=== PATIENT | male | born 1945 | race Caucasian/White ===

== ENCOUNTER 2016-10-05 16:48 | Emergency (ER) | payer BC ==
[~2016-10-05] VITALS: Ht 188 cm; Wt 90.0 kg
[~2016-10-05 16:48] MED LIST: ALCL0.057 EXT; ASCO10003 PO; ASPI81TA28 PO; CALC-354; MULT-884 PO; OMEG10007 PO; SIMV80TA2 PO
[2016-10-05 16:56] VITALS: TEMP 36.9; Ht 188 cm; Wt 90.0 kg
[2016-10-05] MEDS ORDERED: SODIUM CHLORIDE 0.9% 500ML 500 ML IV STA (18:02)
[2016-10-05] MEDS ORDERED: SODIUM CHLORIDE 0.9% 1000ML 1,000 ML IV STA (18:16)
[2016-10-05] MEDS ORDERED: TRMCR130WC TOP (18:21)
[2016-10-05] MEDS ORDERED: KPH PO (18:21)
[2016-10-05] MEDS ORDERED: [UNRECOGNIZED DRUG - REMARK] PO (18:25)
--- NOTE | 2016-10-05 18:52 | DIAGNOSTIC IMAGING REPORT ---
CHEST ONE VIEW PORTABLE HISTORY: weakness, hypotension COMPARISON: Chest 07/01 at 16. FINDINGS: The heart is mildly enlarged. Small bilateral pleural effusions. Right greater than left perihilar interstitial and vascular thickening. This favors mild pulmonary edema. There are also patchy densities at the lung bases. No pneumothorax. IMPRESSION: 1. Suspect mild asymmetric pulmonary edema. 2. Mild cardiomegaly and small bilateral pleural effusions. 3. Patchy bibasilar densities may be due to the pulmonary edema, atelectasis, or a pneumonia. Electronically signed by: Dwight Padilla M.D. 10/05/2016 6:50 PM Dictated Date/Time: 10/05/2016 6:48 PM
[2016-10-05 19:00] LABS: ANISOCYTOSIS PRESENT; BASO % 0.1 %; BASO ABS # 0.01 K/uL (0-0.2); COMPLETE YES; EOS % 3.9 %; HEMATOCRIT 20.5 % (42-52); IG% 0.3 %; LYMPH % 11.1 %; LYMPH ABS # 1.14 K/uL (1.2-3.4); MEAN CELL VOLUME 101.5 fL (80-100); MEAN CORPUSCULAR HEMOGLOBIN 34.2 pg (25-34); MEAN CORPUSCULAR HGB CONC 33.7 g/dl (32-36); MEAN PLATELET VOLUME 10.1 fL (7.4-10.4); MICROCYTOSIS PRESENT; MONO % 8.6 %; PLATELET COUNT 73 K/uL (130-400); PLT ESTIMATE DECREASED; POLYCHROMASIA 2+; RED BLOOD COUNT 2.02 M/uL (4.7-6.1); WHITE BLOOD COUNT 10.28 K/uL (4.8-10.8)
[2016-10-05 19:02] LABS: BUN/CREATININE RATIO 21.8 (10-20); CREATININE 2.1 mg/dl (0.60-1.40); MAGNESIUM 2.4 mg/dl (1.8-2.4); POTASSIUM 4.6 mmol/L (3.5-5.1)
[2016-10-05 19:13] LABS: CKMB/CK RATIO 5.4 (0-3.0); THYROID STIMULATING HORMONE 0.789 uIu/ml (0.300-4.500)
--- NOTE | 2016-10-05 19:30 | EMERGENCY ROOM VISIT NOTE ---
History Report prepared by Alpesh: Padilla De Under the Supervision of: Dr. Sangeetha Soto M.D. First contact with patient: 18:00 Chief Complaint: WEAKNESS Stated Complaint: WEAK,NO APPETITE,BREATHING TROUBLE Nursing Triage Summary: General weakness since last Saturday. History of Present Illness The patient is a 70 year old male who presents to the Emergency Room with complaints of constant weakness beginning 6 days ago. The patient states that he was out to eat with his and he was not able to eat much. He notes that later that evening, he vomited; he has not vomited since. The patient reports that for the last week he has lost his appetite, started having breathing difficulties, and he has felt weak. He states that when he gets up to go to the restroom at night, he becomes short of breath on his walk back. The patient reports that he has had a large amount of fluids today because he was difficult to eat, but he did have a very light breakfast. 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 He states that he quit smoking 27 years ago and has no history of diabetes mellitus or heart disease. The patient denies any pain, irregular bowel movement, diarrhea, and passing blood. Source of History: patient Onset: 6 days ago Position: other (global) Quality: other (weakness) Timing: constant Associated Symptoms: + SOB, No diarrhea Note: Associated symptoms: loss of appetite. The patient denies any pain, irregular bowel movements, and passing blood. Review of Systems See HPI for pertinent positives & negatives. A total of 10 systems reviewed and were otherwise negative. Past Medical & Surgical Medical Problems: (1) CAD (coronary artery disease) (2) Head and neck cancer (3) History of DVT (deep vein thrombosis) (4) History of subdural hemorrhage (5) Hyperlipidemia (6) Impotence of organic origin (7) Malignant neoplasm (8) Maxillary sinus cancer Surgical Problems: (1) History of inguinal hernia repair (2) History of sinus surgery Family History FH: heart disease FHx: cancer Hypertension Social History Smoking Status: Former Smoker Alcohol Use: none Drug Use: none Marital Status: Housing Status: lives with family Occupation Status: retired Current/Historical Medications Scheduled Ascorbic Acid (Vitamin C), 1,000 MG PO DAILY Aspirin (Aspirin Ec), 81 MG PO DAILY Calcium Carbonate-Cholecalcife (Caltrate 600+D), BID Fish Oil (Dowell-3), 1 CAP PO DAILY Multiple Vitamin (Multi Vitamin Daily), 1 TAB PO DAILY Potassium Phosphate Monobasic (K-Phos), 2 TAB PO QAM Simvastatin (Zocor), 80 MG PO QPM Triamcinolone Acet (Aristocort 0.1%), 1 APPL TOP BID [chemo med for bones], 1 TAB PO BID Allergies Coded Allergies: Sulfamethoxazole w/Trimethoprim (Verified Allergy, Unknown, Hives, 10/05/16 ) Physical Exam Vital Signs Date Time Temp Pulse Resp B/P Pulse Ox O2 Delivery O2 Flow Rate FiO2 10/06/16 00:01 82 18 98 10/05/16 23:20 93 14 106/70 97 Room Air 10/05/16 21:20 88 22 112/78 98 Room Air 10/05/16 19:31 93 22 111/74 95 Room Air 10/05/16 19:10 85 10/05/16 18:39 94/56 113/68 120/71 10/05/16 18:39 81 96 Room Air 10/05/16 16:56 36.9 81 20 98/64 93 Room Air Physical Exam Vital signs reviewed. General: Chronically ill-appearing, elderly, in no significant distress, patch over right eye HEENT: No scleral icterus, PERRLA, neck supple. Atraumatic. Edentulous. Dry mucous membranes. Cardiovascular: Regular rate and rhythm, no extra sounds. Pulmonary: Clear to auscultation bilaterally, normal work of breathing. Abdomen: Soft, nontender, nondistended, positive bowel sounds. Musculoskeletal: Atraumatic, no peripheral edema. Neurologic: Patient awake alert and oriented x 3, full strength in all 4 extremities. Cranial nerves 2 through 12 grossly intact. Skin: Warm, dry, no rash Medical Decision & Procedures ER Provider Diagnostic Interpretation: X-ray results as stated below per interpretation by me and the radiologist: CHEST ONE VIEW PORTABLE HISTORY: weakness, hypotension COMPARISON: Chest 07/01 at 16. FINDINGS: The heart is mildly enlarged. Small bilateral pleural effusions. Right greater than left perihilar interstitial and vascular thickening. This favors mild pulmonary edema. There are also patchy densities at the lung bases. No pneumothorax. IMPRESSION: 1. Suspect mild asymmetric pulmonary edema. 2. Mild cardiomegaly and small bilateral pleural effusions. 3. Patchy bibasilar densities may be due to the pulmonary edema, atelectasis, or a pneumonia. Electronically signed by: Dwight Padilla M.D. 10/05/2016 6:50 PM Dictated Date/Time: 10/05/2016 6:48 PM ABDOMEN AND PELVIS CT WITH ORAL CONTRAST CT DOSE: 580.07 mGy.cm HISTORY: poor appetite, vomiting, h/o renal CC TECHNIQUE: Multiaxial CT images of the abdomen and pelvis were performed following the use of oral contrast. COMPARISON STUDY: Outside hospital PET/CT 02/08/2016. FINDINGS: There is small to moderate bilateral pleural effusions. Right greater the left interlobular septal thickening. This is consistent with pulmonary edema. Patchy densities at the base of the bilateral lower lobes favor atelectasis. Slight increase in size in the 2.6 cm lytic lesion within the left acetabulum and the 2 cm lesion within the right L4 vertebral body consistent with metastases. Stable cyst within the left hepatic lobe. The spleen and pancreas are unremarkable. No change in the 4.5 x 3.7 cm infrarenal abdominal aortic aneurysm. IVC filter is noted. Prior left nephrectomy. No soft tissue masses within the nephrectomy bed. Mild thickening of the left adrenal gland, unchanged. Stable hypodense lesion within the right kidney which favors a cyst. No significant retroperitoneal lymphadenopathy. Cholelithiasis. No gallbladder wall thickening. Small hiatus hernia. Normal bladder. Colonic diverticulosis. No bowel wall thickening or obstruction. Normal appendix. IMPRESSION: 1. No bowel wall thickening or obstruction. 2. Pulmonary edema with [id number] bilateral pleural effusions. 3. Prior left nephrectomy. 4. Slight increase in size within the L4 vertebral body and left acetabulum metastatic lesions. 5. A 4.5 x 3.7 cm infrarenal abdominal aortic aneurysm. 6. Cholelithiasis. Electronically signed by: Dwight Padilla M.D. 10/05/2016 9:29 PM Dictated Date/Time: 10/05/2016 9:12 PM Laboratory Results 10/05/16 18:25 Red Blood Count 2.02, Mean Corpuscular Volume 101.5, Mean Corpuscular Hemoglobin 34.2, Mean Corpuscular Hemoglobin Concent 33.7, Mean Platelet Volume 10.1, Neutrophils (%) (Auto) 76.0, Lymphocytes (%) (Auto) 11.1, Monocytes (%) ( Auto) 8.6, Eosinophils (%) (Auto) 3.9, Basophils (%) (Auto) 0.1, Neutrophils # ( Auto) 7.82, Lymphocytes # (Auto) 1.14, Monocytes # (Auto) 0.88, Eosinophils # ( Auto) 0.40, Basophils # (Auto) 0.01 10/05/16 18:25 Test 10/05/16 18:25 10/05/16 18:31 10/05/16 18:33 10/05/16 22:00 White Blood Count 10.28 K/uL (4.8-10.8) Red Blood Count 2.02 M/uL (4.7-6.1) Hemoglobin 6.9 g/dL (14.0-18.0) Hematocrit 20.5 % (42-52) Mean Corpuscular Volume 101.5 fL (80-100) Mean Corpuscular Hemoglobin 34.2 pg (25-34) Mean Corpuscular Hemoglobin Concent 33.7 g/dl (32-36) Platelet Count 73 K/uL (130-400) Mean Platelet Volume 10.1 fL (7.4-10.4) Neutrophils (%) (Auto) 76.0 % Lymphocytes (%) (Auto) 11.1 % Monocytes (%) (Auto) 8.6 % Eosinophils (%) (Auto) 3.9 % Basophils (%) (Auto) 0.1 % Neutrophils # (Auto) 7.82 K/uL (1.4-6.5) Lymphocytes # (Auto) 1.14 K/uL (1.2-3.4) Monocytes # (Auto) 0.88 K/uL (0.11-0.59) Eosinophils # (Auto) 0.40 K/uL (0-0.5) Basophils # (Auto) 0.01 K/uL (0-0.2) RDW Standard Deviation 77.3 fL (36.4-46.3) RDW Coefficient of Variation 22.5 % (11.5-14.5) Immature Granulocyte % (Auto) 0.3 % Immature Granulocyte # (Auto) 0.03 K/uL (0.00-0.02) Platelet Estimate DECREASED Polychromasia 2+ Anisocytosis PRESENT Microcytosis PRESENT Macrocytosis PRESENT Prothrombin Time 12.0 SECONDS (9.0-12.0) Prothromb Time International Ratio 1.1 (0.9-1.1) Activated Partial Thromboplast Time 29.2 SECONDS (21.0-31.0) Partial Thromboplastin Ratio 1.1 Anion Gap 10.0 mmol/L (3-11) Est Creatinine Clear Calc Drug Dose 37.5 ml/min Estimated GFR () 35.6 Estimated GFR (Non- 30.7 BUN/Creatinine Ratio 21.8 (10-20) Calcium Level 8.0 mg/dl (8.5-10.1) Magnesium Level 2.4 mg/dl (1.8-2.4) Total Bilirubin 2.0 mg/dl (0.2-1) Direct Bilirubin 0.5 mg/dl (0-0.2) Aspartate Amino Transf (AST/SGOT) 37 U/L (15-37) Alanine Aminotransferase (ALT/SGPT) 25 U/L (12-78) Alkaline Phosphatase 49 U/L (45-117) Total Creatine Kinase 173 U/L (39-308) Creatine Kinase MB 9.4 ng/ml (0.5-3.6) Creatine Kinase MB Ratio 5.4 (0-3.0) Total Protein 6.3 gm/dl (6.4-8.2) Albumin 3.4 gm/dl (3.4-5.0) Thyroid Stimulating Hormone (TSH) 0.789 uIu/ml (0.300-4.500) Bedside Lactic Acid Venous 0.82 mmol/L (0.90-1.70) Bedside Troponin I 5.400 ng/ml (0-0.045) Urine Color DK YELLOW Urine Appearance CLEAR (CLEAR) Urine pH 5.0 (4.5-7.5) Urine Specific [place] 1.025 (1.000-1.030) Urine Protein TRACE (NEG) Urine Glucose (UA) NEG (NEG) Urine Ketones TRACE (NEG) Urine Occult Blood NEG (NEG) Urine Nitrite NEG (NEG) Urine Bilirubin NEG (NEG) Urine Urobilinogen NEG (NEG) Urine Leukocyte Esterase NEG (NEG) Urine WBC (Auto) 1-5 /hpf (0-5) Urine RBC (Auto) 0-4 /hpf (0-4) Urine Hyaline Casts (Auto) 1-5 /lpf (0-5) Urine Epithelial Cells (Auto) 5-10 /lpf (0-5) Urine Bacteria (Auto) NEG (NEG) Laboratory results per my review. Medications Administered Medications (Trade) Dose Ordered Sig/Kathy Route Start Time Stop Time Status Last Admin Dose Admin Sodium Chloride 500 ml @ 999 mls/hr Q31M STAT IV 10/05/16 18:02 10/05/16 21:31 DC 10/05/16 18:02 999 MLS/HR Sodium Chloride (Nss 1000ml) 1,000 ml @ 150 mls/hr Q6H40M STAT IV 10/05/16 18:16 10/05/16 21:31 DC 10/05/16 18:43 150 MLS/HR Procedure 1924: I performed a rectal exam. The rectal exam is negative, normal rectal mucosus, no significant stool obtained, guaiac negative. ECG Indication: weakness Rate (beats per minute): 85 Rhythm: normal sinus Findings: T-wave inversion (Inferior), other (Repolarization abnormality in the lateral leads) Comparison ECG Date: 06/2015 Change: T-wave inversions in the inferior and lateral leads are new. ED Course 1801: Ordered Sodium Chloride 500 ml @ 999 mls/hr IV 1814: Past medical records reviewed. The patient was evaluated in room B03A. A complete history and physical examination was performed. 1815: Ordered Sodium Chloride 1000 ml @ 150 mls/hr IV 1924: I reevaluated the patient and discussed the exam findings. I performed a rectal exam. I asked the patient for his consent for a blood transfusion. He confirmed consent for a blood transfusion. His rectal exam is negative, normal rectal mucosus, no significant stool obtain, guaiac negative. 2003: I reevaluated the patient and he is resting comfortably. I discussed laboratory and radiographic results with the patient. He verbalized agreement of the treatment plan. I spoke with Dr. Tran of the [facility]. 2213: I discussed the patient's case with Dr Garza, [facility]. The patient will be evaluated for further management and care. Medical Decision Differential diagnosis: Etiologies such as metabolic, infection, hypo/hyperglycemia, electrolyte abnormalities, cardiac sources, intracerebral event, toxicologic, neurologic, as well as others were entertained. This patient was evaluated and appeared to be in no significant distress. He does appear to be chronically ill. The patient has a patch to the right side of his face which he has worn for years. He is dry be appropriate, but is able to answer questions appropriately. He states the he has had no pain. He has felt very weak and sometimes short of breath. IV access was obtained and laboratory work was drawn. The patient was hydrated with normal saline solution. Patient's laboratory work reveals an elevated troponin at 5.4, elevated creatinine at 2.1. Patient's EKG reveals new T-wave inversions in the inferior and lateral leads. Patient is found be markedly anemic. Rectal exam is guaiac negative. Patient was ordered for 2 units of PRBCs. Blood bank has notified us that the patient has a significant number antibodies and will be difficult to crossmatch. Patient was discussed with the hospitalist service, Dr. Olvera. He feels the patient would best be served transferred to [facility] where they will not be a blood supply issue. The patient was made aware of the plan. Consents were signed the patient was discussed with Dr. rogers of the hospitalist service at [facility]. He has been accepted for transfer. He will be transported by [facility] ground. Consults Time Called: 2002 Consulting Physician: Dr. Tran [facility] Returned Call: [address] Tran of the [facility] and informed him of the patients case. Additional Consults: Time Called: [id number] Consulted Physician: Dr. Garza [facility] Returned Call: [id number] Additional Comments: I discussed the patient's case with Dr [facility]. The patient will be evaluated for further management and care. Impression Primary Impression: Acute on chronic renal failure Additional Impressions: Elevated troponin Anemia Cardiac ischemia Critical Care I have personally spent greater than 60 minutes of critical care time in the direct management of this patient. This includes bedside care, interpretation of diagnostic studies, and testing, discussion with consultants, patient, and family members, and other required patient management activities. This 60 minutes is in excess of all separately billable procedures. Scribe Attestation The scribe's documentation has been prepared under my direction and personally reviewed by me in its entirety. I confirm that the note above accurately reflects all work, treatment, procedures, and medical decision making performed by me. Departure Information Dispostion Being Evaluated By Hospitalist Referrals Pradeep Mayer M.D. (PCP) Patient Instructions My [facility] Problem Qualifiers
[2016-10-05 20:46] LABS: INR 1.1 (0.9-1.1); PARTIAL THROMBOPLASTIN RATIO 1.1
--- NOTE | 2016-10-05 21:30 | DIAGNOSTIC IMAGING REPORT ---
ABDOMEN AND PELVIS CT WITH ORAL CONTRAST CT DOSE: 580.07 mGy.cm HISTORY: poor appetite, vomiting, h/o renal CC TECHNIQUE: Multiaxial CT images of the abdomen and pelvis were performed following the use of oral contrast. COMPARISON STUDY: Outside hospital PET/CT 02/08/2016. FINDINGS: There is small to moderate bilateral pleural effusions. Right greater the left interlobular septal thickening. This is consistent with pulmonary edema. Patchy densities at the base of the bilateral lower lobes favor atelectasis. Slight increase in size in the 2.6 cm lytic lesion within the left acetabulum and the 2 cm lesion within the right L4 vertebral body consistent with metastases. Stable cyst within the left hepatic lobe. The spleen and pancreas are unremarkable. No change in the 4.5 x 3.7 cm infrarenal abdominal aortic aneurysm. IVC filter is noted. Prior left nephrectomy. No soft tissue masses within the nephrectomy bed. Mild thickening of the left adrenal gland, unchanged. Stable hypodense lesion within the right kidney which favors a cyst. No significant retroperitoneal lymphadenopathy. Cholelithiasis. No gallbladder wall thickening. Small hiatus hernia. Normal bladder. Colonic diverticulosis. No bowel wall thickening or obstruction. Normal appendix. IMPRESSION: 1. No bowel wall thickening or obstruction. 2. Pulmonary edema with [id number] bilateral pleural effusions. 3. Prior left nephrectomy. 4. Slight increase in size within the L4 vertebral body and left acetabulum metastatic lesions. 5. A 4.5 x 3.7 cm infrarenal abdominal aortic aneurysm. 6. Cholelithiasis. Electronically signed by: Dwight Padilla M.D. 10/05/2016 9:29 PM Dictated Date/Time: 10/05/2016 9:12 PM
[2016-10-05 22:44] LABS: MANUAL MICROSCOPIC REQUIRED? NO; REVIEW REQ? NO; URINE APPEARANCE CLEAR (CLEAR); URINE BILIRUBIN NEG (NEG); URINE COLOR DK YELLOW; URINE NITRITE NEG (NEG); URINE SPECIFIC GRAVITY 1.025 (1.000-1.030); UROBILINOGEN NEG (NEG); ZZUR CULT IF INDIC CLEAN CATCH NO
[2016-10-05 23:20] VITALS: BP 106/70
[2016-10-06 00:01] VITALS: PULSE 82; O2SAT 98
[2016-10-08 07:39] LABS: SPHEROCYTE 3+
[2016-10-16] MEDS ORDERED: ATOR-24 PO ×2 (11:50→16:40)
[2016-10-20] MEDS ORDERED: ULT50X PO (19:40)
[2016-10-20] MEDS ORDERED: LPT20 PO (19:40)
[2016-10-20] MEDS ORDERED: LVQ250 PO (19:40)
[2016-10-20] MEDS ORDERED: TPRSR25 PO (19:40)
== END 2016-10-06 | disposition short-term general hospital (02) ==
LOC: C.EDB 16:49
DX: N17.9 Acute kidney failure, unspecified (principal); N18.9 Chronic kidney disease, unspecified; R79.89 Other specified abnormal findings of blood chemistry; D64.9 Anemia, unspecified; I25.9 Chronic ischemic heart disease, unspecified; E78.5 Hyperlipidemia, unspecified; I25.10 Atherosclerotic heart disease of native coronary artery without angina pectoris; Z86.718 Personal history of other venous thrombosis and embolism; Z86.73 Personal history of transient ischemic attack (TIA), and cerebral infarction without residual deficits; Z98.890 Other specified postprocedural states; Z87.891 Personal history of nicotine dependence; Z79.82 Long term (current) use of aspirin; Z79.899 Other long term (current) drug therapy; Z88.2 Allergy status to sulfonamides; Z82.49 Family history of ischemic heart disease and other diseases of the circulatory system; Z80.9 Family history of malignant neoplasm, unspecified

== ENCOUNTER 2016-10-16 10:43 | Inpatient (IN) | payer BC, OTHER ==
[~2016-10-16] VITALS: Ht 188 cm; Wt 78.0 kg
[~2016-10-16 10:43] MED LIST changes: -ALCL0.057 EXT; +KPH PO; +TRMCR130WC TOP; +[UNRECOGNIZED DRUG - REMARK] PO
[2016-10-16] MEDS ORDERED: FOLI1TAB7 PO (11:50)
[2016-10-16] MEDS ORDERED: FRS/40 PO (11:50)
[2016-10-16] MEDS ORDERED: OMEG5CAP PO (11:50)
[2016-10-16] MEDS ORDERED: ALCL0.05 TOP (11:50)
[2016-10-16] MEDS ORDERED: XGVI INJ (11:50)
[2016-10-16] MEDS ORDERED: ATOR-24 PO ×2 (11:50→16:40)
[2016-10-16] MEDS ORDERED: CHOL1000 PO (11:50)
[2016-10-16] MEDS ORDERED: CYAN10005 PO (11:50)
[2016-10-16] MEDS ORDERED: NTRGSL/4 UT (11:50)
[2016-10-16] MEDS ORDERED: METO25TA3 PO (11:50)
[2016-10-16] MEDS ORDERED: PRLSR20 PO (11:50)
[2016-10-16] MEDS ORDERED: PRED20TA PO (11:52)
--- NOTE | 2016-10-16 12:33 | DIAGNOSTIC IMAGING REPORT ---
CHEST ONE VIEW PORTABLE CLINICAL HISTORY: Atypical chest pain COMPARISON STUDY: 10/05/2016 FINDINGS: The heart is mildly enlarged. There is no focal pulmonary consolidation. There has been interval resolution of the previously identified congestive failure. There are no pleural effusions.[ IMPRESSION: Mild cardiomegaly. No acute findings. Electronically signed by: Adam Hodges M.D. 10/16/2016 12:31 PM Dictated Date/Time: 10/16/2016 12:31 PM
--- NOTE | 2016-10-16 12:36 | DIAGNOSTIC IMAGING REPORT ---
RIGHT SHOULDER 3 VIEWS HISTORY: RIGHT SHOULDER PAIN Right COMPARISON: None. FINDINGS: There is no fracture or dislocation. The right clavicle is intact. There appears be a small focus of fluid along the superior aspect of the AC joint. This can be seen in the setting of a chronic full-thickness rotator cuff tear. Mild cartilage space narrowing within the glenohumeral joint. There is also mild joint space narrowing and small marginal osteophytes at the AC joint consistent with degenerative change. IMPRESSION: 1. No fracture or dislocation within the right shoulder. 2. There appears to be a small amount fluid along the superior aspect of the AC joint. This is typically seen in the setting of a chronic full-thickness rotator cuff tear. This can be confirmed with follow-up nonemergent MRI if clinically wanted. Electronically signed by: Dwight Padilla M.D. 10/16/2016 12:35 PM Dictated Date/Time: 10/16/2016 12:30 PM
--- NOTE | 2016-10-16 13:04 | DIAGNOSTIC IMAGING REPORT ---
RIGHT UPPER EXTREMITY VENOUS DOPPLER HISTORY: right upper arm pain, no trauma Right COMPARISON STUDY: None. FINDINGS: The right internal jugular vein is patent. There is normal flow within the right subclavian vein. There is normal flow and compressibility within the right axillary, radial, and ulnar veins. Thrombus identified within the right basilic vein at the antecubital fossa and extending into the mid forearm. There is also a partially thrombosed cephalic vein. IMPRESSION: 1. Deep vein thrombosis identified within the right basilic vein at the antecubital fossa and extending into the mid forearm. 2. There is also a partially thrombosed right cephalic vein. Electronically signed by: Dwight Padilla M.D. 10/16/2016 1:03 PM Dictated Date/Time: 10/16/2016 1:02 PM
[2016-10-16 13:09] LABS: BUN/CREATININE RATIO 34.6 (10-20); CREATININE 1.9 mg/dl (0.60-1.40); POTASSIUM 3.8 mmol/L (3.5-5.1)
[2016-10-16 13:33] LABS: ANISOCYTOSIS PRESENT; COMPLETE YES; EOS % 0.1 %; HEMATOCRIT 28.5 % (42-52); HYPERSEGMENTED POLYS 1+; IG% 0.6 %; LYMPH % 8.8 %; LYMPH ABS # 1.57 K/uL (1.2-3.4); MEAN CELL VOLUME 98.6 fL (80-100); MEAN CORPUSCULAR HEMOGLOBIN 34.6 pg (25-34); MEAN CORPUSCULAR HGB CONC 35.1 g/dl (32-36); MEAN PLATELET VOLUME 12.1 fL (7.4-10.4); MONO % 3.7 %; NEUT % 86.8 %; PLATELET COUNT 60 K/uL (130-400); PLT ESTIMATE DECREASED; RED BLOOD COUNT 2.89 M/uL (4.7-6.1); SPHEROCYTE OCCASIONAL; WHITE BLOOD COUNT 17.78 K/uL (4.8-10.8)
[2016-10-16 13:45] LABS: CALCIUM 6.8 mg/dl (8.5-10.1)
--- NOTE | 2016-10-16 16:02 | History and Physical ---
History & Physical Date & Time of Service: October 16, 2016 at 16:01 Chief Complaint: Pain In Right Shoulder Primary Care Physician: Pradeep Mayer M.D. History of Present Illness Source: patient this is a 70 yo Male with complicated past medical hx with recent NSTEMI required transfer from [facility] to [facility] on 10/05/16 [place] [facility] [place]15/16 pt developed acute cardiac decompensation , severe ischemic cardiomyopathy with systolic dysfunction EF 25 % medical management of NSTEMI ,as pt was found to too high risk for cardiac cath /cardiac intervention diagnosed to have autoimmune hemolytic anemia , 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 pts' other medical Dx includes 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 , CKD stage 3 , AAA pt presenting to [facility] with complain of pain and swelling of rt upper arm form rt shoulder to elbow area also sharp pain on rt shoulder , worse with movement denies of any recent fall or trauma no fever or chills no complain of chest pain /SOB /no orthopnea , no CHAUDHARY 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 Status: Resolved (9) Maxillary sinus cancer Status: Resolved Surgical Problems: (1) History of inguinal hernia repair Status: Resolved (2) History of sinus surgery Permanent Comment: removal of R eye as well as R ethmoid sinus Status: Resolved Family History FH: heart disease FHx: cancer Hypertension Social History Smoking Status: Never Smoker Drug Use: none Marital Status: Housing status: lives with family Occupational Status: retired Multi-Drug Resistant Organisms History of MDRO: No Allergies Coded Allergies: Sulfamethoxazole w/Trimethoprim (Verified Allergy, Unknown, Hives, 10/16/16 ) Home Medications Scheduled Alclometasone Dipropionate (Alclometasone Dipropionat), Unknown Dose TOP BID Ascorbic Acid (Vitamin C), 1,000 MG PO DAILY Aspirin (Aspirin Ec), 81 MG PO DAILY Atorvastatin (Lipitor), 40 MG PO DAILY Cholecalciferol (Vitamin D3), 1 TAB PO DAILY Cyanocobalamin (Vitamin B-12), 1,000 MCG PO DAILY Denosumab (Xgeva), 120 MCG INJ MONTHLY Fish Oil ([place]-3), 1 CAP PO DAILY Folic Acid (Folvite), 1 MG PO DAILY Furosemide (Lasix), 40 MG PO BID Metoprolol Succ (Toprol Xl) (Toprol-Xl), 75 MG PO DAILY Multiple Vitamin (Multi Vitamin Daily), 1 TAB PO DAILY Nitroglycerin (Nitrostat), 0.4 MG UT PRN [place]-3 Fatty Acids (Fish Oil 1200 mg), 1 CAP PO DAILY Omeprazole (Prilosec), 20 MG PO DAILY Potassium Phosphate Monobasic (K-Phos), 2 TAB PO QAM Prednisone (Prednisone), 80 MG PO DAILY Triamcinolone Acet (Aristocort 0.1%), 1 APPL TOP BID Review of Systems Constitutional: No chills, No fatigue, No fever, No problem reported, No sweats , No weakness, No weight loss Respiratory: No cough, No dyspnea at rest, No dyspnea on exertion, No hemoptysis, No problem reported, No shortness of breath, No sputum, No wheezing Cardiovascular: No PND, No chest pain, No claudication, No edema, No orthopnea , No palpitations, No problem reported Abdomen: No GI bleeding, No constipation, No diarrhea, No nausea, No pain, No problem reported, No vomiting Musculoskeletal: + problem reported (rt shoulder and rt upper arm pain .swelling ) Genitourinary - Male: No dysuria, No hematuria, No impotence, No lesions, No penile discharge, No problem reported, No urinary frequency, No urinary hesitancy, No urinary incontinence, No urinary retention, No urinary urgency Neurologic: No balance problems, No memory loss, No numbness/tingling, No paralysis, No problem reported, No vertigo, No weakness Physical Exam Vital Signs Date Time Temp Pulse Resp B/P Pulse Ox O2 Delivery O2 Flow Rate FiO2 10/16/16 15:37 74 18 107/68 100 Room Air 10/16/16 13:50 64 18 109/63 99 Room Air 10/16/16 13:43 68 10/16/16 12:37 87 18 105/63 99 Room Air 10/16/16 12:25 99 Room Air 10/16/16 11:01 71 10/16/16 10:58 99 Room Air 10/16/16 10:46 36.6 81 18 118/67 100 Room Air General Appearance: no apparent distress Eyes: + pertinent finding (has patch on rt eye s/p enucleation for sq cell ca ) Neck: thyroid normal Respiratory/Chest: chest non-tender, lungs clear, normal breath sounds, no respiratory distress, no accessory muscle use Abdomen/GI: non tender, soft Extremities/Musculoskelatal: + pertinent finding (bruise and swelling , positive tenderness on rt upper arm , tenderness on movement of rt shoulder ) Neurologic/Psych: alert, normal mood/affect, oriented x 3 Skin: normal color, warm/dry, no rash Lymphatic: no adenopathy Diagnostics Laboratory Results Results Past 24 Hours Test 10/16/16 11:20 Range/Units White Blood Count 17.78 4.8-10.8 K/uL Red Blood Count 2.89 4.7-6.1 M/uL Hemoglobin 10.0 14.0-18.0 g/dL Hematocrit 28.5 42-52 % Mean Corpuscular Volume 98.6 80-100 fL Mean Corpuscular Hemoglobin 34.6 25-34 pg Mean Corpuscular Hemoglobin Concent 35.1 32-36 g/dl Platelet Count 60 130-400 K/uL Mean Platelet Volume 12.1 7.4-10.4 fL Neutrophils (%) (Auto) 86.8 % Lymphocytes (%) (Auto) 8.8 % Monocytes (%) (Auto) 3.7 % Eosinophils (%) (Auto) 0.1 % Basophils (%) (Auto) 0.0 % Neutrophils # (Auto) 15.42 1.4-6.5 K/uL Lymphocytes # (Auto) 1.57 1.2-3.4 K/uL Monocytes # (Auto) 0.66 0.11-0.59 K/uL Eosinophils # (Auto) 0.02 0-0.5 K/uL Basophils # (Auto) 0.00 0-0.2 K/uL RDW Standard Deviation 80.1 36.4-46.3 fL RDW Coefficient of Variation 22.2 11.5-14.5 % Immature Granulocyte % (Auto) 0.6 % Immature Granulocyte # (Auto) 0.11 0.00-0.02 K/uL Hypersegmented Polys 1+ Platelet Estimate DECREASED Anisocytosis PRESENT Spherocytes OCCASIONAL Sodium Level 138 136-145 mmol/L Potassium Level 3.8 3.5-5.1 mmol/L Chloride Level 101 98-107 mmol/L Carbon Dioxide Level 26 21-32 mmol/L Anion Gap 11.0 3-11 mmol/L Blood Urea Nitrogen 66 7-18 mg/dl Creatinine 1.90 0.60-1.40 mg/dl Est Creatinine Clear Calc Drug Dose 41.4 ml/min Estimated GFR () 40.2 Estimated GFR (Non- 34.7 BUN/Creatinine Ratio 34.6 10-20 Random Glucose 97 70-99 mg/dl Calcium Level 6.8 8.5-10.1 mg/dl Total Bilirubin 3.0 0.2-1 mg/dl Direct Bilirubin 0.9 0-0.2 mg/dl Aspartate Amino Transf (AST/SGOT) 24 15-37 U/L Alanine Aminotransferase (ALT/SGPT) 29 12-78 U/L Alkaline Phosphatase 39 45-117 U/L Total Creatine Kinase 58 39-308 U/L Creatine Kinase MB 2.9 0.5-3.6 ng/ml Creatine Kinase MB Ratio 5.0 0-3.0 Troponin I 0.266 0-0.045 ng/ml Total Protein 6.2 6.4-8.2 gm/dl Albumin 3.3 3.4-5.0 gm/dl Lipase 495 73-393 U/L Diagnostic Radiology RIGHT UPPER EXTREMITY VENOUS DOPPLER HISTORY: right upper arm pain, no trauma Right COMPARISON STUDY: None. FINDINGS: The right internal jugular vein is patent. There is normal flow within the right subclavian vein. There is normal flow and compressibility within the right axillary, radial, and ulnar veins. Thrombus identified within the right basilic vein at the antecubital fossa and extending into the mid forearm. There is also a partially thrombosed cephalic vein. IMPRESSION: 1. Deep vein thrombosis identified within the right basilic vein at the antecubital fossa and extending into the mid forearm. 2. There is also a partially thrombosed right cephalic vein. RIGHT SHOULDER 3 VIEWS IMPRESSION: 1. No fracture or dislocation within the right shoulder. 2. There appears to be a small amount fluid along the superior aspect of the AC joint. This is typically seen in the setting of a chronic full-thickness rotator cuff tear. This can be confirmed with follow-up nonemergent MRI if clinically wanted. CHEST ONE VIEW PORTABLE CLINICAL HISTORY: Atypical chest pain COMPARISON STUDY: 10/05/2016 FINDINGS: The heart is mildly enlarged. There is no focal pulmonary consolidation. There has been interval resolution of the previously identified congestive failure. There are no pleural effusions.[ IMPRESSION: Mild cardiomegaly. No acute findings. Impression Assessment and Plan RIGHT SHOULDER PAIN : Possible due to chronic rotator cuff injury Xray as noted above ortho eval requested pain control PT/OT eval will defer to Ortho for MRI of shoulder RT UPPER EXT DVT USG of rt upper arm as above recent admission at [facility] had multiple lab draws and IV site can not start on anticoagulation due to thrombocytopenia , recent hx of anemia unable to transfuse at [facility] due to presence of multiple antibodies Heme onc consult requested pt is knows to Dr Carter RECENT PR recent NSTEMI on 10/05/16 required tx to [facility] recommended was treated with IV heparin for 48 hrs added Beta christina , aspirin ,atorvastatin high risk for anjana /post operative complication due to contrast exposure /ATN requiring dialysis /advance CAD may not be amenable to intervention EF post PR was found to be 25 % pt developed acute systolic CHF required aggressive diuresis pt will be continued with all his Cardiac meds Aspirin , Beta christina , statin ACEI/ARB contraindicated due to MIKE /pt developed high anion gap metabolic acidosis with ATN EKG shows stable T wave inversion troponin been trending down form prior labs monitor in Tele Cardiology eval requested ISCHEMIC CARDIOMYOPATHY /WITH SEVERE SYSTOLIC DYSFUNCTION : due to Above appears to be compensated cont Lasix 40 mg BID fluid restriction 2 L /day low salt diet 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 : Evaluated by Hematology in [facility] HIT antibody -PF4 was negative at [facility] Indirect Bili was elevated, HIGH LDH , low haptoglobin , Lucy test positive for IgG no schistocytes noted in peripheral smear s/p transfusion of total 3 units of PRBC was treated with IV steroids , later transitioned to Oral prednisone 80 mg daily ( 1mg/kg/daily ) may require weekly IB Rituxamab if refractory to high dose steroid treatment ( will need hepatitis panel checked prior to tx ) HB on discharge 9.2 /platelet 55 anticoagulation avoided cont Oral prednisone follow daily CBC Leukocytosis possible due to steroid induced heme onc consult requested 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 : s/p resection approx 26 yrs back including enucleation of rt eye s/p adjuvant radiation tx follow with Dr Figueroa ENT at [facility] as per recent follow up on 09/27 -no recurrence of disease METASTATIC RENAL CELL CA : s/p Left nephrectomy on August 2015 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 and 1 cm noted tumor extended to perinephric tissue negative margin , negative Lymphovascular invasion noted imaging study in 2015 showed metastatic disease involving left acetabulum and L4 vertebral body s/p palliative radiation tx completed on 04/2016 follows with Heme Onc Dr Tha Carter on Xgeva SQ 120 mg Q 4weeks PRIOR HX OF CVA in 1993 resulting left sided weakness ambulated with help of cane prior hx of fall PT/OT eval requested FULL CODE DVT PROPHYLAXIS ; Moderate to high risk anticoagulation not ordered for thrombocytopenia /anemia SCD and teds pt is encouraged to ambulate DISPOSITION : expected to be discharged home when medically stable [place] PT /OT eval requested Social service consulted for discharge planning medicine follow up with Dr Pradeep Mayer Level of Care Telemetry Resuscitation Status FULL NO CARDIOV/MECH CHYNA VTE Prophylaxis Given or contraindicated: Sanjuanita Stockings, SCD's Additional Copies To Tha Carter M.D. Rozick, Mark S., M.D.
[2016-10-16] MEDS ORDERED: ALUMINUM/MAGNESIUM/SIMETH (MAALOX MAX) 30 ML UDC PO PRN (16:15)
[2016-10-16] MEDS ORDERED: NITROGLYCERIN 0.4 MG SL PER TAB CHARGE UT PRN (16:15)
[2016-10-16] MEDS ORDERED: POLYETHYLENE (MIRALAX) 17 GM PACK PO PRN (16:15)
[2016-10-16] MEDS ORDERED: ONDANSETRON INJ 2 MG/ML 2 ML VIAL IV PRN (16:15)
[2016-10-16] MEDS ORDERED: MAGNESIUM HYDROXIDE SUSP 30 ML UDC PO PRN (16:15)
[2016-10-16] MEDS ORDERED: NITROGLYCERIN 0.4 MG SL PER TAB CHARGE SL PRN (16:15)
[2016-10-16 18:21] VITALS: BP 125/73; PULSE 75; TEMP 36.5; O2SAT 100; Ht 188 cm; Wt 78.0 kg
[2016-10-16] MEDS ORDERED: FUROSEMIDE 40 MG TAB PO ONE (18:30)
[2016-10-16 19:38] VITALS: BP 115/60; PULSE 63; TEMP 36.7; O2SAT 100
[2016-10-16 20:00] VITALS: O2SAT 99
[2016-10-16] MEDS: ATORVASTATIN 20 MG TAB PO SCH (20:23)
[2016-10-16] MEDS: TRIAMCINOLONE ACET 0.1% CR 15 GM TUBE EXT SCH (20:23)
[2016-10-16] MEDS: ACETAMINOPHEN 325 MG TAB PO PRN (20:23)
[2016-10-16] MEDS: METOPROLOL SUCC 25MG EXT REL TAB PO SCH (20:24)
--- NOTE | 2016-10-16 20:32 | EMERGENCY ROOM VISIT NOTE ---
History Report prepared by Alpesh: Ester Montanez Under the Supervision of: Dr. Hank Feliciano M.D. First contact with patient: 12:03 Chief Complaint: SHOULDER PAIN Stated Complaint: PAIN IN RIGHT SHOULDER History of Present Illness The patient is a 70 year old male who presents to the Emergency Room with complaints of persistent right shoulder discomfort that began last evening. He currently rates his discomfort as an 8/10 in severity. The patient states that yesterday he was discharged from [facility] after recently having an ID. He states that he did not have a heart catheterization while evaluated in the hospital. The patient denies that his pain today feeling similar to pain that he experienced with his most recent ID, but he does note that he another ID in the past and states that he did not have any pain. He states that last evening he went to bed and did not have any discomfort. The patient states that in the middle of the night he developed the pain in his right shoulder and initially attributed it to sleeping on the area wrong. He states that his pain is localized between his right shoulder and right elbow, noting that it is worse towards the shoulder. The patient states that he notices pain in the bicep area and denies any pain in the triceps. He reports that his pain is worsened with movement of his right shoulder. The patient denies any swelling to the area and denies any weakness or numbness in his right hand. He denies consulting his PCP regarding his discomfort. The patient notes a history of a left nephrectomy, fluid overload, and sinus cancer. Pt denies LOC , headache, fevers, chills, diaphoresis, visual changes, neck pain, chest pain, breathing difficulties, nausea, vomiting, abdominal pain, back pain, melena, hematochezia, urinary symptoms, numbness, weakness, lymphadenopathy, rash, or other complaints. Source of History: patient Onset: last evening Position: shoulder (right) Symptom Intensity: 8/10 Timing: other (persistent) Modifying Factors (Worsening): movement (of right shoulder) Review of Systems See HPI for pertinent positives and negatives. A total of ten systems were reviewed and were otherwise negative. 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 (11) Recent inferior myocardial infarction Surgical Problems: (1) History of inguinal hernia repair (2) History of sinus surgery Family History FH: heart disease FHx: cancer Hypertension Social History Smoking Status: Never Smoker Alcohol Use: none Drug Use: none Marital Status: Housing Status: lives with family Occupation Status: retired Current/Historical Medications Scheduled Alclometasone Dipropionate (Alclometasone Dipropionat), Unknown Dose TOP BID Ascorbic Acid (Vitamin C), 1,000 MG PO DAILY Aspirin (Aspirin Ec), 81 MG PO DAILY Atorvastatin (Lipitor), 40 MG PO DAILY Cholecalciferol (Vitamin D3), 1 TAB PO DAILY Cyanocobalamin (Vitamin B-12), 1,000 MCG PO DAILY Denosumab (Xgeva), 120 MCG INJ MONTHLY Fish Oil (Earle-3), 1 CAP PO DAILY Folic Acid (Folvite), 1 MG PO DAILY Furosemide (Lasix), 40 MG PO BID Metoprolol Succ (Toprol Xl) (Toprol-Xl), 75 MG PO DAILY Multiple Vitamin (Multi Vitamin Daily), 1 TAB PO DAILY Nitroglycerin (Nitrostat), 0.4 MG UT PRN Earle-3 Fatty Acids (Fish Oil 1200 mg), 1 CAP PO DAILY Omeprazole (Prilosec), 20 MG PO DAILY Potassium Phosphate Monobasic (K-Phos), 2 TAB PO QAM Prednisone (Prednisone), 80 MG PO DAILY Triamcinolone Acet (Aristocort 0.1%), 1 APPL TOP BID Allergies Coded Allergies: Sulfamethoxazole w/Trimethoprim (Verified Allergy, Unknown, Hives, 10/16/16 ) Physical Exam Vital Signs Date Time Temp Pulse Resp B/P Pulse Ox O2 Delivery O2 Flow Rate FiO2 10/16/16 15:37 74 18 107/68 100 Room Air 10/16/16 13:50 64 18 109/63 99 Room Air 10/16/16 13:43 68 10/16/16 12:37 87 18 105/63 99 Room Air 10/16/16 12:25 99 Room Air 10/16/16 11:01 71 10/16/16 10:58 99 Room Air 10/16/16 10:46 36.6 81 18 118/67 100 Room Air Physical Exam GENERAL: Awake, alert, well-appearing, in no distress HENT: Normocephalic, atraumatic. Oropharynx unremarkable. EYES: Normal conjunctiva. Sclera non-icteric. NECK: Supple. No nuchal rigidity. FROM. No JVD. RESPIRATORY: Clear to auscultation. CARDIAC: Regular rate, normal rhythm. Extremities warm and well perfused. Pulses equal. ABDOMEN: Soft, non-distended. No tenderness to palpation. No rebound or guarding. No masses. RECTAL: Deferred. MUSCULOSKELETAL: Tenderness in the right deltoid region, Lipoma on the right deltoid area which the patient reports is chronic. Range of motion is somewhat limited secondary to pain in right shoulder joint. Pain elicited with internal rotation. Chest examination reveals no tenderness. The back is symmetrical on inspection without obvious abnormality. There is no CVA tenderness to palpation. No joint edema. LOWER EXTREMITIES: Calves are equal size bilaterally and non-tender. No edema. No discoloration. NEURO: Normal sensorium. No sensory or motor deficits noted. Strength in right upper extremity is normal. SKIN: Bruises noted in the antecubital fossa, several palpable firm veins in the right AC. No rash or jaundice noted. Medical Decision & Procedures ER Provider Diagnostic Interpretation: Radiology results as stated below per my review and radiologist interpretation: RIGHT UPPER EXTREMITY VENOUS DOPPLER HISTORY: right upper arm pain, no trauma Right COMPARISON STUDY: None. FINDINGS: The right internal jugular vein is patent. There is normal flow within the right subclavian vein. There is normal flow and compressibility within the right axillary, radial, and ulnar veins. Thrombus identified within the right basilic vein at the antecubital fossa and extending into the mid forearm. There is also a partially thrombosed cephalic vein. IMPRESSION: 1. Deep vein thrombosis identified within the right basilic vein at the antecubital fossa and extending into the mid forearm. 2. There is also a partially thrombosed right cephalic vein. Electronically signed by: Dwight Padilla M.D. 10/16/2016 1:03 PM Dictated Date/Time: 10/16/2016 1:02 PM CHEST ONE VIEW PORTABLE CLINICAL HISTORY: Atypical chest pain COMPARISON STUDY: 10/05/2016 FINDINGS: The heart is mildly enlarged. There is no focal pulmonary consolidation. There has been interval resolution of the previously identified congestive failure. There are no pleural effusions.[ IMPRESSION: Mild cardiomegaly. No acute findings. Electronically signed by: Adam Hodges M.D. 10/16/2016 12:31 PM Dictated Date/Time: 10/16/2016 12:31 PM RIGHT SHOULDER 3 VIEWS HISTORY: RIGHT SHOULDER PAIN Right COMPARISON: None. FINDINGS: There is no fracture or dislocation. The right clavicle is intact. There appears be a small focus of fluid along the superior aspect of the AC joint. This can be seen in the setting of a chronic full-thickness rotator cuff tear. Mild cartilage space narrowing within the glenohumeral joint. There is also mild joint space narrowing and small marginal osteophytes at the AC joint consistent with degenerative change. IMPRESSION: 1. No fracture or dislocation within the right shoulder. 2. There appears to be a small amount fluid along the superior aspect of the AC joint. This is typically seen in the setting of a chronic full-thickness rotator cuff tear. This can be confirmed with follow-up nonemergent MRI if clinically wanted. Electronically signed by: Dwight Padilla M.D. 10/16/2016 12:35 PM Dictated Date/Time: 10/16/2016 12:30 PM Laboratory Results 10/16/16 11:20 Red Blood Count 2.89, Mean Corpuscular Volume 98.6, Mean Corpuscular Hemoglobin 34.6, Mean Corpuscular Hemoglobin Concent 35.1, Mean Platelet Volume 12.1, Neutrophils (%) (Auto) 86.8, Lymphocytes (%) (Auto) 8.8, Monocytes (%) (Auto) 3.7, Eosinophils (%) (Auto) 0.1, Basophils (%) (Auto) 0.0, Neutrophils # (Auto) 15.42, Lymphocytes # (Auto) 1.57, Monocytes # (Auto) 0.66, Eosinophils # (Auto) 0.02, Basophils # (Auto) 0.00 10/16/16 11:20 Test 10/16/16 11:20 White Blood Count 17.78 K/uL (4.8-10.8) Red Blood Count 2.89 M/uL (4.7-6.1) Hemoglobin 10.0 g/dL (14.0-18.0) Hematocrit 28.5 % (42-52) Mean Corpuscular Volume 98.6 fL (80-100) Mean Corpuscular Hemoglobin 34.6 pg (25-34) Mean Corpuscular Hemoglobin Concent 35.1 g/dl (32-36) Platelet Count 60 K/uL (130-400) Mean Platelet Volume 12.1 fL (7.4-10.4) Neutrophils (%) (Auto) 86.8 % Lymphocytes (%) (Auto) 8.8 % Monocytes (%) (Auto) 3.7 % Eosinophils (%) (Auto) 0.1 % Basophils (%) (Auto) 0.0 % Neutrophils # (Auto) 15.42 K/uL (1.4-6.5) Lymphocytes # (Auto) 1.57 K/uL (1.2-3.4) Monocytes # (Auto) 0.66 K/uL (0.11-0.59) Eosinophils # (Auto) 0.02 K/uL (0-0.5) Basophils # (Auto) 0.00 K/uL (0-0.2) RDW Standard Deviation 80.1 fL (36.4-46.3) RDW Coefficient of Variation 22.2 % (11.5-14.5) Immature Granulocyte % (Auto) 0.6 % Immature Granulocyte # (Auto) 0.11 K/uL (0.00-0.02) Hypersegmented Polys 1+ Platelet Estimate DECREASED Anisocytosis PRESENT Spherocytes OCCASIONAL Anion Gap 11.0 mmol/L (3-11) Est Creatinine Clear Calc Drug Dose 41.4 ml/min Estimated GFR () 40.2 Estimated GFR (Non- 34.7 BUN/Creatinine Ratio 34.6 (10-20) Calcium Level 6.8 mg/dl (8.5-10.1) Total Bilirubin 3.0 mg/dl (0.2-1) Direct Bilirubin 0.9 mg/dl (0-0.2) Aspartate Amino Transf (AST/SGOT) 24 U/L (15-37) Alanine Aminotransferase (ALT/SGPT) 29 U/L (12-78) Alkaline Phosphatase 39 U/L (45-117) Total Creatine Kinase 58 U/L (39-308) Creatine Kinase MB 2.9 ng/ml (0.5-3.6) Creatine Kinase MB Ratio 5.0 (0-3.0) Troponin I 0.266 ng/ml (0-0.045) Total Protein 6.2 gm/dl (6.4-8.2) Albumin 3.3 gm/dl (3.4-5.0) Lipase 495 U/L (73-393) Laboratory results reviewed by me Medications Administered Medications (Trade) Dose Ordered Sig/Kathy Route Start Time Stop Time Status Last Admin Dose Admin Acetaminophen (Tylenol Tab) 650 mg Q4H PRN PO 10/16/16 16:15 11/15/16 16:14 10/16/16 20:23 650 MG ECG Indication: back/shoulder pain Rate (beats per minute): 68 Rhythm: normal sinus Findings: Q waves (Inferior), T-wave inversion (Lateral), no ectopy, other (LVH ) Comparison ECG Date: From [facility] Change: When compared to EKG from [facility]: Lateral T wave inversions and inferior Q waves are old. ED Course 1208: The patient was evaluated in room C10. A complete history and physical exam was performed. 1524: I reviewed old records from [facility] on the patient at this time. His troponin upon discharge was 1.29, his peak was 4.28, his creatinine was 1.9, and his white blood cell count was 12. 1529: I reevaluated the patient and he is resting comfortably. I discussed the exam findings with him and I discussed the treatment plan. He verbalized complete understanding and agreement. He will be evaluated for further treatment. 1551: I discussed the patients case with Dr. Krueger [facility]. She is going to evaluate the patient for further treatment. Medical Decision Blood pressure screening: Patient was found to have normal blood pressure on screening and does not require immediate follow-up. Medication Reconciliation: I attest that I have personally reviewed the patient' s current medication list Triage Nursing notes reviewed. The patient's presentation and history were concerning for arm pain. Etiologies such as DVT, joint effusion, infection, trauma, muscular, lymphedema , idiopathic, CHF, cardiac sources, as well as others were entertained. The patient was evaluated. He had findings concerning for palpable cords in the antecubital fossa. He had some tenderness elicited with range of motion at the right shoulder joint. The remainder of his examination was as above. Blood work was obtained. He had a moderate leukocytosis which has increased however the patient was recently started on prednisone. He had a mild anemia and thrombocytopenia. Creatinine was at 1.9 and was stable. His troponin was mildly elevated at 0.226. This was less than discharge measurements. X-ray and ultrasound imaging performed as above. The patient has a DVT. His history and recent medical issues are complicating this factor. The patient has thrombocytopenia and anemia. He does require blood transfusion. I did discuss the case with the ED pharmacist and we felt that hematology consultation, admission and anticoagulation in the hospital would be the most prudent choice. Consultation was made with internal medicine to evaluate the patient and coordinate further care. The patient and were informed. They're pleased with the treatment. The patient was admitted for further management. The chart was completed utilizing true[x] [employer] Speech voice recognition software. Grammatical errors, random word insertions, pronoun errors, and incomplete sentences are an occasional consequence of this system due to software limitations, ambient noise, and hardware issues. Any formal questions or concerns about the content, text, or information contained within the body of this dictation should be directly addressed to the physician for clarification. Consults Time Called: 1550 Consulting Physician: Joanne Mendez Returned Call: [phone] I discussed the patients case with Joanne Mendez. She is going to evaluate the patient for further treatment. Impression Primary Impression: DVT (deep venous thrombosis) Additional Impressions: Anemia Thrombocytopenia Scribe Attestation The scribe's documentation has been prepared under my direction and personally reviewed by me in its entirety. I confirm that the note above accurately reflects all work, treatment, procedures, and medical decision making performed by me. Departure Information Dispostion Being Evaluated By Hospitalist Prescriptions Atorvastatin (Lipitor) 40 Mg Tab 40 MG PO DAILY for 30 Days, #30 TAB 3 Refills Prov: Lalita Krueger M.D. 10/16/16 Referrals Pradeep Mayer M.D. (PCP) Problem Qualifiers
[2016-10-16] MEDS ORDERED: FUROSEMIDE 40 MG TAB PO SCH (21:00)
[2016-10-16] MEDS ORDERED: TRAMADOL HCL 50 MG TAB PO PRN (22:15)
[2016-10-16 22:35] LABS: CKMB/CK RATIO 4.3 (0-3.0)
[2016-10-16] MEDS: HYDROmorphone INJ 1 MG/ML SYR IV PRN (22:41)
[2016-10-16 23:08] VITALS: BP 107/69; PULSE 65; TEMP 36.5; O2SAT 99
[2016-10-16 23:59] VITALS: O2SAT 99
[2016-10-17] VITALS (11 sets, daily range): BP systolic 105–118; BP diastolic 66–78; PULSE 64–79; TEMP 36.5–37; O2SAT 92–99
[2016-10-17] MEDS: HYDROmorphone INJ 1 MG/ML SYR IV PRN ×2 (01:49→05:35)
[2016-10-17] MEDS ORDERED: HYDROmorphone INJ 1 MG/ML SYR IV ONE (05:59)
[2016-10-17] MEDS ORDERED: HYDROmorphone INJ 1 MG/ML SYR IV PRN (06:00)
[2016-10-17 06:16] LABS: HEMATOCRIT 28.9 % (42-52); MEAN CELL VOLUME 95.7 fL (80-100); MEAN CORPUSCULAR HEMOGLOBIN 33.4 pg (25-34); MEAN CORPUSCULAR HGB CONC 34.9 g/dl (32-36); RED BLOOD COUNT 3.02 M/uL (4.7-6.1); WHITE BLOOD COUNT 18.03 K/uL (4.8-10.8)
[2016-10-17 06:19] LABS: MEAN PLATELET VOLUME 10.3 fL (7.4-10.4); PLATELET COUNT 62 K/uL (130-400)
[2016-10-17 06:27] LABS: INR 1.1 (0.9-1.1); PROTHROMBIN TIME (PATIENT) 11.4 SECONDS (9.0-12.0)
[2016-10-17 06:44] LABS: CALCIUM 6.6 mg/dl (8.5-10.1); CREATININE 1.9 mg/dl (0.60-1.40); POTASSIUM 4.1 mmol/L (3.5-5.1)
[2016-10-17 06:52] LABS: CHOLESTEROL/HDL RATIO 2.5; CKMB/CK RATIO 5.2 (0-3.0)
--- NOTE | 2016-10-17 07:57 | DIAGNOSTIC IMAGING REPORT ---
CT OF THE RIGHT SHOULDER WITHOUT CONTRAST CT DOSE: 928.64 mGy.cm CLINICAL HISTORY: Right shoulder pain. TECHNIQUE: Axial images of the right shoulder obtained without IV contrast. Sagittal and coronal reconstructions were viewed. COMPARISON STUDY: Right shoulder radiographs October 16, 2016. FINDINGS: Visualized portions of the lungs demonstrate mild groundglass opacities within the right upper lobe. Mild irregular subpleural opacity is noted. This favors atelectasis or scarring. There is no right pneumothorax. Alignment of the right shoulder is anatomic. There is no acute fracture or suspicious lesion by CT. There is mild glenohumeral joint osteoarthritis and moderate AC joint osteoarthritis. There is suspected fluid within the subacromial/subdeltoid bursa. The rotator cuff is difficult to assess by CT. IMPRESSION: 1. No acute fracture or dislocation of the right shoulder. 2. Moderate osteophytosis of the right acromioclavicular joint and mild osteoarthritis of the right glenohumeral joint. 3. Suboptimal evaluation of the rotator cuff given CT technique. 4. Suspected fluid within the subacromial/subdeltoid bursa. 5. Mild groundglass opacities within visualized portions of the right lung. Electronically signed by: Naren Hodges M.D. 10/17/2016 7:55 AM Dictated Date/Time: 10/17/2016 7:47 AM
[2016-10-17] MEDS: METOPROLOL SUCC 25MG EXT REL TAB PO SCH ×3 (09:00→19:57)
[2016-10-17] MEDS: TRIAMCINOLONE ACET 0.1% CR 15 GM TUBE EXT SCH ×2 (09:00→19:17)
[2016-10-17] MEDS ORDERED: ATORVASTATIN 20 MG TAB PO SCH (09:00)
[2016-10-17] MEDS ORDERED: METOPROLOL SUCC 25MG EXT REL TAB PO SCH (09:00)
[2016-10-17] MEDS ORDERED: OMEGA-3 (PURIFIED FISH OIL) 1 GM CAP PO SCH (09:00)
--- NOTE | 2016-10-17 10:33 | Hematology/Oncology Prog Note ---
Hematology/Onc Progress Note Date of Service October 17, 2016. 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 No evidence of recurrent disease. -Left kidney clear cell carcinoma, diagnosed in August,, S/P left nephrectomy, 2 tumor nodules measuring 5.5 and 1 cm, extending into the perinephric tissue, negative margin, no lymphovascular invasion noted, metastatic disease involving the left acetabulum and L4 vertebral body, biopsy from the left acetabular lesion confirm the metastatic kidney cancer, S/P palliative radiation treatment at both bony metastatic site Current treatment for metastatic kidney cancer: - Not on any active chemotherapy -started him on bone modifying agent in the form of Xgeva in March,. Hematological diagnosis: -Baseline hemoglobin level around 10 g/dL in the early 2016, has abnormal kidney function test which may be the cause of slightly low hemoglobin. 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 He also had VT during the hospitalization -Presently he is on oral prednisone at 80 mg per day along with Folic acid. Now he is admitted Hospital for increasing right shoulder pain of for 2 days duration, I saw him at bedside, he does complain of right shoulder pain, has restricted movements, also noticed to have some slight swelling involving the right upper extremity, he denies any new cardiac or pulmonary symptom other than some tiredness, denies any bleeding from any sites, some nausea present, vomited once today morning, no fever, denies any leg edema, no history of recent fall, no headache, no focal neurological symptoms, weight loss present by about 15 lb, current weight is around 180 lb. Denies any abdominal symptoms. REVIEW OF SYSTEMS: CONST: Weight loss present, no fever, no fatigue. No night sweats. No chills. 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 ENT: Mild impaired hearing present, no sinus problems, no sore throat, no hoarseness, no enlarged nodes in neck. RESP: no cough, no wheezing, mild shortness of breath on exertion which has improved, no change in breathing, no hemoptysis. No chest pain. CVS: no anginal pain at present, no dyspnea, no palpitations, no leg edema GI: no melena, no hematemesis, no vomiting, no diarrhea, no constipation, no abdominal pain. No distension of the abdomen. : no dysuria, no hematuria, no frequency of urination. MSK: Right shoulder pain present but no other joint pain, no new arthritis, no new back pain. PSYCH: Some anxiety present because of increasing right shoulder pain HEME: no bleeding tendency, he did not have any blood clot problem in the past. NEURO: no significant headache, no seizures, History of CV stroke in the past , left upper and lower extremity weakness present,no dizziness, no speech difficulty, no tingling or numbness of the extremities. No memory changes. SKIN: no new rashes, no itching. On exam: - Alert and oriented x3, thin built man, not in any distress. - HEENT: no icterus, no pallor, Throat: Normal. - Neck: No palpable cervical lymphadenopathy. - Chest: clear to auscultation. - Abdomen: soft, nontender, no hepatomegaly, no splenomegaly. - No focal neuro deficit. - Extremities: no finger clubbing, no leg edema. -restricted right shoulder movement present, mild right upper extremity proximal swelling present with some local bruising at the previous IV sites. Imaging and blood workup: -Drect Lucy test positive with IgG, negative with C3. (10/07/2016). -PET-CT scan done on 07/11/2016 showed post treatment changes noted in the left acetabulum and L4 vertebral body lesion which shows minimal uptake. No other sites of masses noted anywhere else. Multiple lung nodules which are too small to characterize which is stable. -CT scan of the abdomen and pelvis done without intravenous contrast on 2016 at [facility] showed slight interval increase in the lytic lesion noted in the left acetabulum (measuring 2.6 cm) and L4 vertebral lesion measuring 2 cm. AAA measuring 4.5 x 3.7 cm which is stable. IVC filter present. S/P left nephrectomy noted. No intra-abdominal lymphadenopathy noted. No soft tissue masses noted. Blood workup done on 10/16/2016: -WBC 60199, H&H of 03/16, MCV 98, Platelet count of 60,000, -BUN/Creat: 66/1.9, AST 24, ALT 29, alkaline phosphatase 939, Total bilirubin: 3.0, direct bilirubin 0.9. -Troponin--> 0.266. -Lipase 495. - WBC 19543, H&H of 10.1/28.9, MCV 95, [place] [address] (10/17/2016) -Normal PT. -Right upper extremity Doppler evaluation done on 10/16/2016 showed DVT involving the right base iliac vein, partially thrombosed right cephalic vein noted. -Right upper extremity shoulder CT scan of the chest done on 10/17/2006 showed no acute fracture dislocation. Moderate DJD involving the right acromioclavicular joint and right glenohumeral joint pain. Suboptimal evaluation of the rotator cuff. Suspected fluid within the subacromial/ subdeltoid bursa. ASSESSMENT AND PLAN: 70-year-old male, a case of left kidney clear cell carcinoma S/P left nephrectomy earlier in August,, has metastatic disease involving the L4 vertebral body and left acetabular region, multiple lung nodules which are too small to characterize, S/P palliative radiation treatment to the L4 and left acetabular lesion, presently he is under observation for the metastatic kidney cancer diagnosis, never received any TKI in the past, receiving bone modifying agent in the form of Xgeva every monthly since March, mild anemia noted because of abnormal kidney function test. Recently he was admitted at [facility] for autoimmune hemolytic anemia as well as thrombocytopenia, hemoglobin level was around 7, platelet count dropped down to around 15,000 thousand, direct Lucy test with IgG positive, received 3 units of PRBC, started him on oral prednisone when he was in the hospital, presently he is on prednisone at 80 mg per day, also received 1st dose of Rituxan chemotherapy on 10/11/2016. Plan to continue Rituxan weekly for total 4 times. Now he is admitted Hospital for increasing right shoulder pain, found to have right upper extremity DVT which appeared to thrombophlebitis from the previous IV sites. His platelet count is around 60,000, hemoglobin is around 10 g/dL. No bleeding from any sites. I agree about starting anticoagulant Treatment in his case at this time, he should see orthopedic surgeon for the right shoulder pain, no evidence of metastatic disease noted in the right shoulder region. Will start Rituxan therapy as an outpatient either this week or next week. Will continue prednisone at 80 mg per day along with Folic acid 1 mg every day. He already has IVC filter. Thanks for the consultation. Dr. Tha Carter Hem/Onc (This note was completed using the dictation program Fluency Direct. As such, there may be misspellings, word substitutions, or other variations that should not change the essence of the clinical content of this encounter note. If there is need for further clarification, please direct questions to the provider listed above.) Vital Signs Vital Signs Past 12 Hours Date Time Temp Pulse Resp B/P Pulse Ox O2 Delivery O2 Flow Rate FiO2 10/17/16 08:00 98 Room Air 10/17/16 07:58 36.9 66 18 112/66 95 10/17/16 04:37 36.7 65 20 115/71 97 Room Air 10/17/16 04:00 97 Room Air 10/16/16 23:59 99 Room Air 10/16/16 23:08 36.5 65 18 107/69 99 Room Air
[2016-10-17] MEDS: MULTIVITAMIN TAB PO SCH (12:55)
[2016-10-17] MEDS: ASCORBIC ACID 500 MG TAB PO SCH (12:55)
[2016-10-17] MEDS: FUROSEMIDE 40 MG TAB PO SCH ×2 (12:56→16:47)
[2016-10-17] MEDS: ASPIRIN 81 MG ECTAB PO SCH (12:56)
[2016-10-17] MEDS: OMEGA-3 (PURIFIED FISH OIL) 1 GM CAP PO SCH (12:57)
[2016-10-17] MEDS: CYANOCOBALAMIN 500 MCG TAB (VIT B-12) PO SCH (12:58)
[2016-10-17] MEDS: PANTOprazole SOD 40 MG TAB PO SCH (12:58)
[2016-10-17] MEDS: CHOLECALCIFEROL 1000 INTER.UNIT TAB PO SCH (12:58)
--- NOTE | 2016-10-17 14:30 | CARDIOLOGY CONSULTATION ---
DATE OF CONSULTATION: 10/17/2016 HISTORY OF PRESENT ILLNESS: Curry Ashton is a 70-year-old male seen in cardiology consultation per the request of Dr. Krueger for the evaluation of presumed underlying ischemic cardiomyopathy. The patient's recent history dates back to 10/05/2016 when he presented to the Emergency Department of [facility] with complaints of shortness of breath and was found to have a profound anemia with a hemoglobin of 6.9. He was also found to have thrombocytopenia with a platelet count of 73,000. His EKG revealed new inferior and lateral ST depression with T-wave inversions. Troponin was elevated at 5.4 and his creatinine was 2.1. Because of concerns about auto antibodies, he could not undergo rapid transfusion here and ultimately, he was transferred to [facility], where he underwent a prolonged hospital stay, having been discharged from there 2 days ago. While there, he received 3 units of packed red blood cells. He was diagnosed with an autoimmune hemolytic anemia and immune thrombocytopenia and had been treated with high dose prednisone and received a dose of rituximab so far. Yesterday, he presented with complaints of right shoulder pain and he has been found to have a right basilic vein deep venous thrombosis at the level of the right antecubital fossa and extending to the mid forearm. He also has partial thrombosis of the right cephalic vein. There is concern that he also has an underlying rotator cuff tear. From a cardiology perspective, the patient had been seen in cardiology consultation [place] [facility] He had further EKG tracings there that revealed evolution of the lateral T-wave inversions as noted on repeat tracings here on October 16 and October 17. An echocardiogram performed [place] [facility]06[place]2016 revealed a new anteroseptal, apical, inferoseptal and inferior wall motion abnormality with an ejection fraction 25%-29% range, which was new compared to a prior echocardiogram in 2009. The patient was felt to have congestive heart failure and he received medical treatment for a non-ST segment elevation myocardial infarction with 48 hours of IV heparin and received diuretic therapy. He was subsequently discharged on dose of furosemide 40 mg b.i.d. When I examined and interviewed the patient in room 229-2, he was accompanied by his family and he was sitting upright, getting ready to eat his lunch meal. He was in no acute distress and he only complained of pain in his right shoulder and right upper arm, which he stated was bearable. PAST MEDICAL HISTORY: 1. 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 2. 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 3. Abdominal aortic aneurysm. 4. History of DVT with inferior vena cava filter placed due to his history of subdural hemorrhage. 5. History of subdural hemorrhage 1993 with residual left-sided weakness. 6. Hyperlipidemia. PAST SURGICAL HISTORY: 1. History of inguinal hernia repair. 2. History of sinus surgery and right eye enucleation. 3. History of laparoscopic radical nephrectomy on 08/23/2015 at [facility]. 4. History of evacuation of a subdural hematoma in 1993. FAMILY HISTORY: 1. Heart disease, details unknown. 2. Cancer, details unknown. 3. Hypertension. SOCIAL HISTORY: The patient is a nonsmoker. He is and lives with his family. He is retired. COMPREHENSIVE REVIEW OF SYSTEMS: Negative with the exception of right shoulder and upper arm discomfort. ALLERGIES: SULFAMETHOXAZOLE/TMP. HOME MEDICATIONS: 1. Ascorbic acid. 2. Aspirin 81 mg daily. 3. Atorvastatin 40 mg daily. 4. Vitamin D3 one tablet by mouth daily. 5. Vitamin B12 at 1000 mcg daily. 6. Denosumab 120 mcg injected monthly. 7. Blevins-3 fish oil 1 tablet by mouth daily. 8. Folic acid 1 tablet by mouth daily. 9. Furosemide 40 mg b.i.d. 10. Metoprolol succinate 25 mg daily. 11. Potassium phosphate 2 tablets by mouth daily in a.m. 12. Prednisone 80 mg by mouth daily. PHYSICAL EXAMINATION: VITAL SIGNS: Temperature 36.9, heart rate 66, blood pressure 112/66, and pulse oximetry 98% on room air. GENERAL APPEARANCE: Frail in appearance, no acute distress. NECK: No bruits. LUNGS: No rales, rhonchi or wheezing. CARDIOVASCULAR: Regular rate and rhythm. No murmurs. ABDOMEN: Soft and nontender. EXTREMITIES: No edema. DIAGNOSTIC DATA: EKG tracings as noted in HPI, the most recent was performed on 10/17/2016 revealing sinus rhythm at 73 beats per minute with lateral T-wave inversions, anticipated evolution pattern compared to prior tracing dated 10/05/2016, at which time the repolarization abnormalities were new. Upper extremity venous duplex as noted above. FINAL IMPRESSION: A 70-year-old male. 1. Right upper extremity deep venous thrombosis in the setting of autoimmune hemolytic anemia, immune thrombocytopenia with platelet count of 62,000 with the patient on prednisone and having recently received rituximab therapy. 2. Recently diagnosed presumed ischemic cardiomyopathy with LAD territory versus RCA territory wall motion abnormality on recent echocardiogram [place] [facility] [place]2016 and an ejection fraction of 25%-29%, chronic systolic heart failure, currently compensated. 3. History of renal cell carcinoma with lumbar bone metastasis, acetabulum metastasis, and pulmonary nodules. 4. Chronic kidney disease with solitary kidney with previous nephrectomy. RECOMMENDATIONS: Looking at the patient's history, I suspect that he developed an ischemic cardiomyopathy over the last few years and his recent presentation with a troponin of 5 and new lateral T-wave inversions was an extension of his previous event. I am not convinced that his ejection fraction of 25%-29% happened acutely. At present, he is well compensated and his EKG is unchanged compared to other recent tracings. He is well compensated from a cardiac perspective and I would continue his current medications including aspirin, metoprolol, statin therapy, and his current dose of furosemide. I have canceled the echocardiogram order that had already been placed as he had a recent study, and I do not think a repeat study would change his management at the present time. The more pressing issue is how to manage the right basilic vein DVT with extension down to the antecubital fossa and into the right forearm. This is perhaps the cause of the pain that the patient presented with. There is also a concern that he may have an orthopedic problem there. His recent PET scan did not reveal any metastatic disease in that area. Placing the patient on anticoagulation becomes very risky as he has persistent thrombocytopenia and during his recent hospital stay, it is noted that his platelet count was as low as 18,000. He is now on high dose oral prednisone and has received rituximab therapy in addition. I am going to defer the patient's anticoagulation to the hospitalist service and hematology. We will continue to follow the patient. [facility]
--- NOTE | 2016-10-17 15:23 | Progress Note ---
Internal Med Progress Note Date of Service: October 17, 2016. Provider Documentation: SUBJECTIVE: continue to have pain on rt shoulder 8/10 , worse with movement was given IV Dilaudid earlier for pain , had nausea with emesis mentioned only helped him transiently appetite is poor no complain of chest pain , no orthopnea, no CHAUDHARY , no cough OBJECTIVE: Vital Signs-as noted below Exam: General-no sign of distress Eyes-Rt sided eye patch ( s/p rt eye enucleation due to Sq cell Ca ) Lungs-clear to auscultate , no wheeze or rales CVS -HR regular s1/S2, no lower ext edema, no JVD Abdomen-soft, non tender Extremities-+ rt shoulder tenderness, swelling on ant shoulder joint -soft /+ tenderness / Neuro-no focal neurological deficit , AAO x3 Lab data as noted below. ASSESSMENT & PLAN: RIGHT SHOULDER PAIN : possible rt subacromial/sub deltoid bursitis ? CT of rt shoulder : 1. No acute fracture or dislocation of the right shoulder. 2. Moderate osteophytosis of the right acromioclavicular joint and mild osteoarthritis of the right glenohumeral joint. 3. Suboptimal evaluation of the rotator cuff given CT technique. 4. Suspected fluid within the subacromial/subdeltoid bursa. 5. Mild ground glass opacities within visualized portions of the right lung. -no evidence of metastatic disease -cont pain control -IV Dilaudid D/salima as pt was having increased N/V -Tramadol increased to 50 mg Q6hrs PRN , stool softener ordered to prevent narcotic induced constipation -heating pad -ordered for Lidoderm patch Ortho eval requested , may benefit with Steroid injection awaiting input PT/OT eval RT UPPER EXT DVT USG of rt upper arm : 1. Deep vein thrombosis identified within the right basilic vein at the antecubital fossa and extending into the mid forearm. 2. There is also a partially thrombosed right cephalic vein. recent admission at [facility] with anemia /NSTEMI had multiple lab draws and IV site possible thrombophlebitis /also has underlying hypercoagulable status due to disseminated malignancy can not start on anticoagulation due to autoimmune thrombocytopenia , hemolytic anemia very high risk for bleeding complication unable to transfuse PRBC at [facility] due to presence of multiple antibodies Heme onc consult requested -appreciate input form Dr Carter will hold off anticoagulation cont symptom control with PO meds and heating pad as needed out pt follow up with Heme onc RECENT NSTEMI recent NSTEMI on 10/05/16 required tx to [facility] medical management recommended high risk for anjana /post operative complication due to contrast exposure /ATN requiring dialysis /advance CAD may not be amenable to intervention was treated with IV heparin for 48 hrs added Beta christina , aspirin ,atorvastatin EF post MA was found to be 25 % -ischemic cardiomyopathy pt developed acute systolic CHF required aggressive diuresis pt is continued with all his Cardiac meds Aspirin , Beta christina , statin , Lasix ACEI/ARB contraindicated due to MIKE /pt developed high anion gap metabolic acidosis with ATN EKG shows stable T wave inversion troponin been trending down form prior labs monitor in Tele Cardiology eval requested -appreciate input stable form cardiac stand 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 due to sever cardiomyopathy and minimum intervention option available ISCHEMIC CARDIOMYOPATHY /WITH SEVERE SYSTOLIC DYSFUNCTION : due to Above compensated cont Lasix 40 mg BID cont fluid restriction 2 L /day low salt diet 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 : Evaluated by Hematology in [facility] antibody -PF4 was negative at [facility] Indirect Bili was elevated, HIGH LDH , low haptoglobin , Lucy test positive for IgG no schistocytes noted in peripheral smear s/p transfusion of total 3 units of PRBC was treated with IV steroids , later transitioned to Oral prednisone 80 mg daily ( 1mg/kg/daily ) given IV Rituxamab on 10/11/16 HB on discharge 9.2 /platelet 55 Hb stable at ~10 , platelet 62 not a candidate for anticoagulation cont Oral prednisone follow daily CBC Leukocytosis possible due to steroid induced heme onc consult requested -appreciate input will need out pt Heme onc follow up and will be scheduled for weekly IV Rituxamab 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 : s/p resection approx 26 yrs back including enucleation of rt eye s/p adjuvant radiation tx follow with Dr Figueroa ENT at [facility] as per recent follow up on 09/27 -no recurrence of disease METASTATIC RENAL CELL CA : s/p Left nephrectomy on August 2015 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 and 1 cm noted tumor extended to perinephric tissue negative margin , negative Lymphovascular invasion noted imaging study in 2015 showed metastatic disease involving left acetabulum and L4 vertebral body s/p palliative radiation tx completed on 04/2016 CT of rt shoulder does not show any metastatic disease follows with Heme Onc Dr Tha Carter on Xgeva SQ 120 mg Q 4weeks PRIOR HX OF CVA in 1993 resulting left sided weakness ambulated with help of cane prior hx of fall PT/OT eval requested FULL CODE DVT PROPHYLAXIS ; Moderate to high risk anticoagulation not ordered for thrombocytopenia /anemia SCD and teds pt is encouraged to ambulate DISPOSITION : expected to be discharged home when medically stable lives with [place] PT /OT eval requested Social service consulted for discharge planning medicine follow up with Dr Pradeep Mayer update given to at bedside Vital Signs: Date Time Temp Pulse Resp B/P Pulse Ox O2 Delivery O2 Flow Rate FiO2 10/17/16 12:09 37.0 64 16 107/66 96 10/17/16 12:00 98 Room Air 10/17/16 08:00 98 Room Air 10/17/16 07:58 36.9 66 18 112/66 95 10/17/16 04:37 36.7 65 20 115/71 97 Room Air 10/17/16 04:00 97 Room Air 10/16/16 23:59 99 Room Air 10/16/16 23:08 36.5 65 18 107/69 99 Room Air 10/16/16 20:00 99 Room Air 10/16/16 19:38 36.7 63 16 115/60 100 Room Air 10/16/16 18:21 36.5 75 21 125/73 100 Room Air 10/16/16 17:39 72 18 106/68 98 Room Air 10/16/16 15:37 74 18 107/68 100 Room Air Lab Results: Results Past 24 Hours Test 10/16/16 21:57 10/17/16 06:02 Range/Units Total Creatine Kinase 63 62 39-308 U/L Creatine Kinase MB 2.7 3.2 0.5-3.6 ng/ml Creatine Kinase MB Ratio 4.3 5.2 0-3.0 Troponin I 0.196 0.189 0-0.045 ng/ml White Blood Count 18.03 4.8-10.8 K/uL Red Blood Count 3.02 4.7-6.1 M/uL Hemoglobin 10.1 14.0-18.0 g/dL Hematocrit 28.9 42-52 % Mean Corpuscular Volume 95.7 80-100 fL Mean Corpuscular Hemoglobin 33.4 25-34 pg Mean Corpuscular Hemoglobin Concent 34.9 32-36 g/dl RDW Standard Deviation 77.0 36.4-46.3 fL RDW Coefficient of Variation 22.0 11.5-14.5 % Platelet Count 62 130-400 K/uL Mean Platelet Volume 10.3 7.4-10.4 fL Prothrombin Time 11.4 9.0-12.0 SECONDS Prothromb Time International Ratio 1.1 0.9-1.1 Sodium Level 135 136-145 mmol/L Potassium Level 4.1 3.5-5.1 mmol/L Chloride Level 100 98-107 mmol/L Carbon Dioxide Level 28 21-32 mmol/L Anion Gap 7.0 3-11 mmol/L Blood Urea Nitrogen 65 7-18 mg/dl Creatinine 1.90 0.60-1.40 mg/dl Est Creatinine Clear Calc Drug Dose 40.3 ml/min Estimated GFR () 40.2 Estimated GFR (Non- 34.7 BUN/Creatinine Ratio 34.0 10-20 Random Glucose 119 70-99 mg/dl Calcium Level 6.6 8.5-10.1 mg/dl Triglycerides Level 143 0-150 mg/dl Cholesterol Level 133 0-200 mg/dl HDL Cholesterol 53 mg/dl LDL Cholesterol, Calculated 51 mg/dl VLDL Cholesterol, Calculated 29 mg/dl Cholesterol/HDL Ratio 2.5
[2016-10-17] MEDS: TRAMADOL HCL 50 MG TAB PO PRN (15:26)
[2016-10-17] MEDS: LIDODERM (LIDOCAINE) PATCH 5% TD SCH (15:38)
[2016-10-17] MEDS: ATORVASTATIN 20 MG TAB PO SCH (19:57)
[2016-10-17] MEDS: ACETAMINOPHEN 325 MG TAB PO PRN (19:59)
--- NOTE | 2016-10-17 23:11 | ORTHOPEDIC CONSULTATION ---
DATE OF CONSULTATION: 10/17/2016 HISTORY OF PRESENT ILLNESS: A 70-year-old male presenting with right shoulder pain. He was recently seen at [facility] and had a recent NSTEMI. He was discharged on 10/15/2016. The patient has a history of cardiac decompensation and severe ischemic cardiomyopathy with poor systolic function, EF 25%. He also has squamous cell cancer, right orbit and sinus status post nucleation of right eye and ethmoid sinus. He also has poorly differentiated CA associated with bone METS and chronic kidney disease stage III and a Triple-A. I am concerned that he may have a rotator cuff tear in his right shoulder and that prompted orthopedic consultation. He also has a history of subdural hematoma, history of DVT, hyperlipidemia. SOCIAL HISTORY: He is . Lives with his family. Nonsmoker. MEDICATION ALLERGIES: See H\T\P and medical records, which were reviewed. PERTINENT MEDICATIONS: He is on high dose prednisone daily. PHYSICAL EXAMINATION: EXTREMITIES: His shoulders demonstrate that his right shoulder clearly has an effusion. This could just be a bursal effusion or could communicate with the joint potentially, if he did have a rotator cuff tear. His anterior shoulder, he has a soft tissue mass in the subcutaneous tissues, which is mobile. He said he has had this for years. This is likely benign, possibly a lipoma. The AC joint was not particularly tender. He did have tenderness over the biceps and anterolateral subacromial space. Range of motion of his arm at the side was pain free. He has normal internal and external rotation strength. He has some weakness with abduction, but he can hold his arm temporarily above shoulder height, but then it starts to weaken and he drops it down to the side.In his opposite shoulder, he did not have any effusion and denied any particular weakness. Distal neurological exam was intact otherwise. IMAGING: His x-rays demonstrate that he has some mild arthritis in the glenohumeral joint and mild arthritis in the AC joint. He still has a maintained subacromial space with no proximal migration. CT scan does not clearly identify the superior cuff. He clearly has an intact anterior and posterior rotator cuff and some mild arthritis as noted. He does appear to have a fluid collection in the subacromial space. ASSESSMENT: Right shoulder subacromial bursitis, possible due to communication with the glenohumeral joint which would imply a rotator cuff tear, potentially. At his age, he could have a chronic rotator cuff tear of the superior rotator cuff. Studies however, are not definitive for that. Definitive studies would be MRI imaging or CT arthrogram which he is not a candidate for due to his chronic kidney disease. At this point, conservative management is helping somewhat. He is using a heating pad and he is already on high dose steroids orally. I discussed with him that there is an option if he was willing, we could aspirate the subacromial bursa and inject that with a steroid and it may work more focally on that area of the shoulder. I discussed with him, we are not contemplating any surgical treatment for him at all as he is nonoperative candidate. For now, we will see how he does with the oral meds and the pain management. Discuss with his medical service if they feel he is a candidate to try an aspiration and injection of a steroid. Thank you for this consultation. LUISITO
[2016-10-18] VITALS (11 sets, daily range): BP systolic 92–128; BP diastolic 57–75; PULSE 68–80; TEMP 36.7–37; O2SAT 92–100
[2016-10-18 05:45] LABS: HEMATOCRIT 26.4 % (42-52); MEAN CELL VOLUME 96.7 fL (80-100); MEAN CORPUSCULAR HEMOGLOBIN 32.6 pg (25-34); MEAN CORPUSCULAR HGB CONC 33.7 g/dl (32-36); MEAN PLATELET VOLUME 11.9 fL (7.4-10.4); PLATELET COUNT 61 K/uL (130-400); RED BLOOD COUNT 2.73 M/uL (4.7-6.1); WHITE BLOOD COUNT 16.73 K/uL (4.8-10.8)
[2016-10-18 06:19] LABS: BUN/CREATININE RATIO 33.1 (10-20); CALCIUM 6.9 mg/dl (8.5-10.1); POTASSIUM 4.6 mmol/L (3.5-5.1)
[2016-10-18] MEDS: METOPROLOL SUCC 25MG EXT REL TAB PO SCH ×3 (08:01→20:54)
[2016-10-18] MEDS: ASCORBIC ACID 500 MG TAB PO SCH (08:02)
[2016-10-18] MEDS: CYANOCOBALAMIN 500 MCG TAB (VIT B-12) PO SCH (08:02)
[2016-10-18] MEDS: FUROSEMIDE 40 MG TAB PO SCH ×2 (08:03→16:02)
[2016-10-18] MEDS: PANTOprazole SOD 40 MG TAB PO SCH (08:03)
[2016-10-18] MEDS: OMEGA-3 (PURIFIED FISH OIL) 1 GM CAP PO SCH (08:03)
[2016-10-18] MEDS: ASPIRIN 81 MG ECTAB PO SCH (08:03)
[2016-10-18] MEDS: CHOLECALCIFEROL 1000 INTER.UNIT TAB PO SCH (08:03)
[2016-10-18] MEDS: MULTIVITAMIN TAB PO SCH (08:03)
[2016-10-18] MEDS: TRIAMCINOLONE ACET 0.1% CR 15 GM TUBE EXT SCH ×2 (08:04→20:55)
[2016-10-18] MEDS: LIDODERM (LIDOCAINE) PATCH 5% TD SCH (08:04)
[2016-10-18] MEDS: TRAMADOL HCL 50 MG TAB PO PRN (08:08)
[2016-10-18] MEDS ORDERED: ETHYL CHLORIDE AER SPR 100 ML CAN EXT ONE (10:30)
[2016-10-18] MEDS ORDERED: BUPIVACAINE 0.25% 30 ML VIAL INFIL ONE (10:30)
[2016-10-18] MEDS ORDERED: METHYLPREDNISOLONE ACETATE 80 MG/ML VIAL IA ONE (10:30)
--- NOTE | 2016-10-18 15:29 | Progress Note ---
Internal Med Progress Note Date of Service: Oct 18, 2016. 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 ASSESSMENT & PLAN: RIGHT SHOULDER PAIN : possible rt subacromial/sub deltoid bursitis CT of rt shoulder : 1. No acute fracture or dislocation of the right shoulder. 2. Moderate osteophytosis of the right acromioclavicular joint and mild osteoarthritis of the right glenohumeral joint. 3. Suboptimal evaluation of the rotator cuff given CT technique. 4. Suspected fluid within the subacromial/subdeltoid bursa. 5. Mild ground glass opacities within visualized portions of the right lung. -no evidence of metastatic disease -cont pain control -Tramadol increased to 50 mg Q6hrs PRN , stool softener ordered to prevent narcotic induced constipation -heating pad / Lidoderm patch Ortho eval requested appreciate input plan to suction the fluid in bursa and inject steroid to reduce inflammation RT UPPER EXT DVT USG of rt upper arm : 1. Deep vein thrombosis identified within the right basilic vein at the antecubital fossa and extending into the mid forearm. 2. There is also a partially thrombosed right cephalic vein. 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 , hemolytic anemia very high risk for bleeding complication unable to transfuse PRBC at [facility] due to presence of multiple antibodies Heme onc consult requested -appreciate input form Dr Carter will hold off anticoagulation cont symptom control with PO meds and heating pad as needed out pt follow up with Heme onc RECENT NSTEMI recent NSTEMI on 10/05/16 required tx to [place] medical management recommended high risk for anjana /post operative complication due to contrast exposure /ATN requiring dialysis /advance CAD may not be amenable to intervention was treated with IV heparin for 48 hrs added Beta christina , aspirin ,atorvastatin EF post [place] was found to be 25 % -ischemic cardiomyopathy pt developed acute systolic CHF required aggressive diuresis pt is continued with all his Cardiac meds Aspirin , Beta christina , statin , Lasix ACEI/ARB contraindicated due to MIKE /pt developed high anion gap metabolic acidosis with ATN EKG shows stable T wave inversion troponin been trending down form prior labs monitor in Tele Cardiology eval requested -appreciate input stable form cardiac stand poor residential prognosis due to sever cardiomyopathy and minimum intervention option available ISCHEMIC CARDIOMYOPATHY /WITH SEVERE SYSTOLIC DYSFUNCTION : due to Above compensated cont Lasix 40 mg BID cont fluid restriction 2 L /day low salt diet 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 : Evaluated by Hematology in [place] [facility] antibody -PF4 was negative at [place] Indirect Bili was elevated, HIGH LDH , low haptoglobin , Lucy test positive for IgG no schistocytes noted in peripheral smear s/p transfusion of total 3 units of PRBC was treated with IV steroids , later transitioned to Oral prednisone 80 mg daily ( 1mg/kg/daily ) given IV Rituxamab on 10/11/16 HB on discharge 9.2 /platelet 55 Hb stable at ~10 , platelet 62 not a candidate for anticoagulation cont Oral prednisone follow daily CBC Leukocytosis possible due to steroid induced heme onc consult requested -appreciate input will need out pt Heme onc follow up and will be scheduled for weekly IV Rituxamab 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 : s/p resection approx 26 yrs back including enucleation of rt eye s/p adjuvant radiation tx follow with Dr Figueroa ENT at [facility] as per recent follow up on 09/27 -no recurrence of disease METASTATIC RENAL CELL CA : s/p Left nephrectomy on August 2015 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 and 1 cm noted tumor extended to perinephric tissue negative margin , negative Lymphovascular invasion noted imaging study in 2015 showed metastatic disease involving left acetabulum and L4 vertebral body s/p palliative radiation tx completed on 04/2016 CT of rt shoulder does not show any metastatic disease follows with Heme Onc Dr Tha Carter on Xgeva SQ 120 mg Q 4weeks PRIOR HX OF CVA in 1993 resulting left sided weakness ambulated with help of cane prior hx of fall PT/OT eval requested FULL CODE DVT PROPHYLAXIS ; Moderate to high risk anticoagulation not ordered for thrombocytopenia /anemia SCD and teds pt is encouraged to ambulate DISPOSITION : expected to be discharged home when medically stable /improved pain on rt shoulder lives with in [place] PT /OT eval Social service consulted for discharge planning medicine follow up with Dr Pradeep Mayer Vital Signs: Date Time Temp Pulse Resp B/P (MAP) Pulse Ox O2 Delivery O2 Flow Rate FiO2 10/18/16 12:00 95 Room Air 10/18/16 11:01 36.8 73 20 128/71 (90) 100 Room Air 10/18/16 08:00 95 Room Air 10/18/16 07:35 37.0 80 20 106/65 (79) 100 Room Air 10/18/16 04:00 Room Air 10/18/16 02:58 36.9 68 18 110/75 (87) 95 Room Air 10/18/16 00:05 92 Room Air 10/17/16 22:53 36.6 74 18 105/68 (80) 92 Room Air 10/17/16 20:00 99 Room Air 10/17/16 19:55 36.8 74 16 118/78 (91) 96 Room Air 10/17/16 16:00 99 Room Air 10/17/16 15:43 36.5 79 18 112/70 (84) 93 Lab Results: Results Past 24 Hours Test 10/18/16 05:06 Range/Units White Blood Count 16.73 4.8-10.8 K/uL Red Blood Count 2.73 4.7-6.1 M/uL Hemoglobin 8.9 14.0-18.0 g/dL Hematocrit 26.4 42-52 % Mean Corpuscular Volume 96.7 80-100 fL Mean Corpuscular Hemoglobin 32.6 25-34 pg Mean Corpuscular Hemoglobin Concent 33.7 32-36 g/dl RDW Standard Deviation 77.9 36.4-46.3 fL RDW Coefficient of Variation 22.3 11.5-14.5 % Platelet Count 61 130-400 K/uL Mean Platelet Volume 11.9 7.4-10.4 fL Sodium Level 137 136-145 mmol/L Potassium Level 4.6 3.5-5.1 mmol/L Chloride Level 99 98-107 mmol/L Carbon Dioxide Level 29 21-32 mmol/L Anion Gap 9.0 3-11 mmol/L Blood Urea Nitrogen 66 7-18 mg/dl Creatinine 2.00 0.60-1.40 mg/dl Est Creatinine Clear Calc Drug Dose 38.2 ml/min Estimated GFR () 37.8 Estimated GFR (Non- 32.6 BUN/Creatinine Ratio 33.1 10-20 Random Glucose 117 70-99 mg/dl Calcium Level 6.9 8.5-10.1 mg/dl
--- NOTE | 2016-10-18 17:13 | ORTHOPEDICS PROGRESS NOTE ---
DATE: 10/18/2016 SUBJECTIVE: Followup evaluation on [place], 10/18/2016 demonstrates that the patient is feeling a little bit better with regard to his shoulder pain. He still has some asymmetrical size of his right shoulder compared to his left. Upon further questioning, he said his right shoulder is always a little bit larger than his left, so this may or may not be fluid in the shoulder. The fatty tissues around the upper arm seem to be more substantial in his right arm than his left, on exam. He still has good internal and external rotation strength and weak abduction. Neurologic exam otherwise intact. His white blood cell count has decreased from 18.03 to 16.73. He is afebrile. ASSESSMENT AND PLAN: Right shoulder bursitis, impingement from acromioclavicular joint arthritis, possible fluid collection. The shoulder was sterilely prepped with both alcohol and Betadine and the subacromial space was aspirated with 18 gauge needle and there was no fluid aspirated out of the subacromial space. I went ahead and injected the subacromial space with Depo-Medrol 80 mg and some local anesthetic plain Marcaine. The patient tolerated the procedure well. The patient has ongoing shoulder pain. He can follow up on an as-needed basis for injection in the outpatient clinic. Physical therapy may be of benefit after 1 week post-injection to improve some dysfunction, not recommend any physical therapy for the arm for at least another week after the injection. LUISITO
[2016-10-18] MEDS: ATORVASTATIN 20 MG TAB PO SCH (20:54)
--- NOTE | 2016-10-18 22:12 | Hematology/Oncology Prog Note ---
Hematology/Onc Progress Note Date of Service Oct 18, 2016. Subjective I saw him at bedside, earlier in the day he was seen by orthopedic surgeon Dr. Marcum, had local steroid injection with Depo-Medrol into the right subacromial space with improvement of the local pain, still has significant restriction of the right upper extremity abduction, no new cardiac or pulmonary symptoms, no nausea or vomiting at this time, has some mild bilateral leg edema, no fever, no bleeding from any sites. I reviewed his blood workup done today, white blood cell count is on the higher side around 16 of related to the ongoing prednisone therapy, hemoglobin level slightly dropped down to around 8.9 g/dL which could be dilutional effect, platelet count has remained on the lower side but stable around 61,000. BUN/ Creat: 66/2.0. Will continue with the oral prednisone at 80 mg per day along with oral Folic acid. Will see how he does in the next few days, I am planning for the next dose of Rituxan early next week as an outpatient. Vital Signs Vital Signs Past 12 Hours Date Time Temp Pulse Resp B/P (MAP) Pulse Ox O2 Delivery O2 Flow Rate FiO2 10/18/16 20:00 93 Room Air 10/18/16 19:25 36.9 78 18 104/59 (74) 93 Room Air 10/18/16 16:00 95 Room Air 10/18/16 15:17 36.9 69 20 105/64 (78) 95 Room Air 10/18/16 12:00 95 Room Air 10/18/16 11:01 36.8 73 20 128/71 (90) 100 Room Air
[2016-10-19] VITALS (11 sets, daily range): BP systolic 89–107; BP diastolic 44–68; PULSE 69–88; TEMP 36.6–37.3; O2SAT 92–97
[2016-10-19] MEDS: TRAMADOL HCL 50 MG TAB PO PRN ×2 (01:19→07:40)
[2016-10-19 05:56] LABS: HEMATOCRIT 24.7 % (42-52); MEAN CELL VOLUME 96.5 fL (80-100); MEAN CORPUSCULAR HEMOGLOBIN 32.8 pg (25-34); RED BLOOD COUNT 2.56 M/uL (4.7-6.1); WHITE BLOOD COUNT 21.55 K/uL (4.8-10.8)
[2016-10-19 05:58] LABS: MEAN PLATELET VOLUME 11.4 fL (7.4-10.4); PLATELET COUNT 87 K/uL (130-400)
[2016-10-19 06:31] LABS: BUN/CREATININE RATIO 35.9 (10-20); CALCIUM 6.9 mg/dl (8.5-10.1); CREATININE 1.8 mg/dl (0.60-1.40); MAGNESIUM 2.6 mg/dl (1.8-2.4); POTASSIUM 4.3 mmol/L (3.5-5.1)
[2016-10-19] MEDS: LIDODERM (LIDOCAINE) PATCH 5% TD SCH (07:40)
[2016-10-19] MEDS: TRIAMCINOLONE ACET 0.1% CR 15 GM TUBE EXT SCH ×2 (07:40→20:13)
[2016-10-19] MEDS: FUROSEMIDE 40 MG TAB PO SCH (07:41)
[2016-10-19] MEDS: ASPIRIN 81 MG ECTAB PO SCH (07:41)
[2016-10-19] MEDS: CYANOCOBALAMIN 500 MCG TAB (VIT B-12) PO SCH (07:41)
[2016-10-19] MEDS: PANTOprazole SOD 40 MG TAB PO SCH (07:41)
[2016-10-19] MEDS: OMEGA-3 (PURIFIED FISH OIL) 1 GM CAP PO SCH (07:42)
[2016-10-19] MEDS: CHOLECALCIFEROL 1000 INTER.UNIT TAB PO SCH (07:42)
[2016-10-19] MEDS: METOPROLOL SUCC 25MG EXT REL TAB PO SCH ×3 (07:42→20:13)
[2016-10-19] MEDS: ASCORBIC ACID 500 MG TAB PO SCH (07:43)
[2016-10-19] MEDS: MULTIVITAMIN TAB PO SCH (07:43)
--- NOTE | 2016-10-19 11:29 | Cardiology Follow-Up ---
Subjective General Date of Service: Oct 19, 2016. Chief Complaint: follow up cardiomyopathy Pt evaluation today including: conversation w/ patient, physical exam History of Present Illness The patient is a 70 year old male seen in follow up. Patient notes improved R shoulder pain post injection, still has pain in right antecubital fossa. Denies SOB. On telemetry had 9 beat leisa of nonsustained VT on 10/18 at 13:01 at 112 bpm without recurrence. Allergies Coded Allergies: Sulfamethoxazole w/Trimethoprim (Verified Allergy, Unknown, Hives, 10/16/16 ) Social History Smoking Status: Never Smoker Hx Tobacco Use In Past Year?: No Hx Alcohol Use - Type And Amou: No Hx Substance Use - Type And Am: No Problem List Medical Problems: (1) Acute on chronic renal failure Status: Acute (2) Anemia Status: Acute (3) Anemia Status: Acute (4) CAD (coronary artery disease) Status: Chronic (5) Cardiac ischemia Status: Acute (6) Elevated troponin Status: Acute (7) Frequent falls Status: Acute (8) Thrombocytopenia Status: Acute (9) Weakness Status: Acute Physical Exam Vital Signs Last Vital Signs Documentation Date Time Temp Pulse Resp B/P (MAP) Pulse Ox O2 Delivery O2 Flow Rate FiO2 10/19/16 08:00 95 Room Air 10/19/16 07:52 37.2 84 16 106/68 (81) Physical Exam Constitutional: Level of Distress: NAD Neck: supple Lungs: Auscultation: pertinent finding (mildly decreased BS at bases) Extremities: no edema (trace edema to mid tibias bilaterally) Assessment and Plan Assessment and Plan Impression: 1. Ischemic CM, severe LV systolic dysfunction, overall compensated, but looks a little more wet than 2 days ago 2. NSVT Plan: Given CM large infarct pattern on echo and EKG NSVT is not suprising. Not a candidate for AICD given other comorbitites, prognosis poor from standpoint of non cardiac illnesses. Continue toprol. Instead of PO furosemide this afternoon will give furosemide 20 mg IV x 1 instead, and transition him off of furosemide 40 mg BID to torsemide 10 mg PO daily tomorrow. Will need close outpt cardio follow up. Laboratory Results Last 24 Hours Test 10/19/16 05:15 White Blood Count 21.55 K/uL Red Blood Count 2.56 M/uL Hemoglobin 8.4 g/dL Hematocrit 24.7 % Mean Corpuscular Volume 96.5 fL Mean Corpuscular Hemoglobin 32.8 pg Mean Corpuscular Hemoglobin Concent 34.0 g/dl RDW Standard Deviation 77.5 fL RDW Coefficient of Variation 21.7 % Platelet Count 87 K/uL Mean Platelet Volume 11.4 fL Nucleated RBC Absolute Count (auto) 0.02 K/uL Nucleated Red Blood Cells % 0.1 % Sodium Level 135 mmol/L Potassium Level 4.3 mmol/L Chloride Level 99 mmol/L Carbon Dioxide Level 28 mmol/L Anion Gap 8.0 mmol/L Blood Urea Nitrogen 65 mg/dl Creatinine 1.80 mg/dl Est Creatinine Clear Calc Drug Dose 41.1 ml/min Estimated GFR () 42.9 Estimated GFR (Non- 37.0 BUN/Creatinine Ratio 35.9 Random Glucose 106 mg/dl Calcium Level 6.9 mg/dl Magnesium Level 2.6 mg/dl
[2016-10-19] MEDS ORDERED: FUROSEMIDE INJ 20 MG in SYRINGE 0 ML IV ONE (11:30)
[2016-10-19] MEDS: ATORVASTATIN 20 MG TAB PO SCH (20:14)
[2016-10-20] VITALS (12 sets, daily range): BP systolic 89–138; BP diastolic 57–87; PULSE 68–123; TEMP 36.8–38.4; O2SAT 92–99
--- NOTE | 2016-10-20 00:15 | Progress Note ---
Internal Med Progress Note Date of Service: Oct 19, 2016. 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 ASSESSMENT & PLAN: RIGHT SHOULDER PAIN : Ortho eval requested appreciate input s/p steroid injection ; symptom improved markedly possible rt subacromial/sub deltoid bursitis CT of rt shoulder : 1. No acute fracture or dislocation of the right shoulder. 2. Moderate osteophytosis of the right acromioclavicular joint and mild osteoarthritis of the right glenohumeral joint. 3. Suboptimal evaluation of the rotator cuff given CT technique. 4. Suspected fluid within the subacromial/subdeltoid bursa. 5. Mild ground glass opacities within visualized portions of the right lung. -no evidence of metastatic disease -cont pain control -Tramadol increased to 50 mg Q6hrs PRN , stool softener ordered to prevent narcotic induced constipation -heating pad / Lidoderm patch RT UPPER EXT DVT USG of rt upper arm : 1. Deep vein thrombosis identified within the right basilic vein at the antecubital fossa and extending into the mid forearm. 2. There is also a partially thrombosed right cephalic vein. recent admission at [facility] with anemia /NSTEMI had multiple lab draws and IV site possible thrombophlebitis /also has underlying hypercoagulable status due to disseminated malignancy can not start on anticoagulation due to autoimmune thrombocytopenia , hemolytic anemia very high risk for bleeding complication unable to transfuse PRBC at [facility] due to presence of multiple antibodies Heme onc consult requested -appreciate input form Dr Carter will hold off anticoagulation cont symptom control with PO meds and heating pad as needed out pt follow up with Heme onc RECENT NSTEMI recent NSTEMI on 10/05/16 required tx to [place] medical management recommended high risk for anjana /post operative complication due to contrast exposure /ATN requiring dialysis /advance CAD may not be amenable to intervention was treated with IV heparin for 48 hrs added Beta christina , aspirin ,atorvastatin EF post [place] was found to be 25 % -ischemic cardiomyopathy pt developed acute systolic CHF required aggressive diuresis pt is continued with all his Cardiac meds Aspirin , Beta christina , statin , Lasix ACEI/ARB contraindicated due to MIKE /pt developed high anion gap metabolic acidosis with ATN EKG shows stable T wave inversion troponin been trending down form prior labs monitor in Tele Cardiology eval requested -appreciate input stable form cardiac stand poor alf prognosis due to sever cardiomyopathy and minimum intervention option available ISCHEMIC CARDIOMYOPATHY /WITH SEVERE SYSTOLIC DYSFUNCTION : due to Above compensated cont Lasix 40 mg BID cont fluid restriction 2 L /day low salt diet 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 : Evaluated by Hematology in [facility] antibody -PF4 was negative at [place] Indirect Bili was elevated, HIGH LDH , low haptoglobin , Lucy test positive for IgG no schistocytes noted in peripheral smear s/p transfusion of total 3 units of PRBC was treated with IV steroids , later transitioned to Oral prednisone 80 mg daily ( 1mg/kg/daily ) given IV Rituxamab on 10/11/16 cont Oral prednisone follow daily CBC Leukocytosis possible due to steroid induced heme onc consult requested -appreciate input will need out pt Heme onc follow up and will be scheduled for weekly IV Rituxamab 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 : s/p resection approx 26 yrs back including enucleation of rt eye s/p adjuvant radiation tx follow with Dr Figueroa ENT at [facility] as per recent follow up on 09/27 -no recurrence of disease METASTATIC RENAL CELL CA : s/p Left nephrectomy on August 2015 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 and 1 cm noted tumor extended to perinephric tissue negative margin , negative Lymphovascular invasion noted imaging study in 2015 showed metastatic disease involving left acetabulum and L4 vertebral body s/p palliative radiation tx completed on 04/2016 CT of rt shoulder does not show any metastatic disease follows with Heme Onc Dr Tha Carter on Xgeva SQ 120 mg Q 4weeks PRIOR HX OF CVA in 1993 resulting left sided weakness ambulated with help of cane prior hx of fall PT/OT eval requested FULL CODE DVT PROPHYLAXIS ; Moderate to high risk anticoagulation not ordered for thrombocytopenia /anemia SCD and teds pt is encouraged to ambulate DISPOSITION : expected to be discharged home tomorrow medicine follow up with Dr Pradeep Mayer Vital Signs: Date Time Temp Pulse Resp B/P (MAP) Pulse Ox O2 Delivery O2 Flow Rate FiO2 10/19/16 23:47 37.1 76 18 107/66 (80) 92 Room Air 10/19/16 20:00 Room Air 10/19/16 18:48 36.6 88 18 95/60 (72) 95 Room Air 10/19/16 16:00 Room Air 10/19/16 14:42 36.9 77 20 105/61 (76) 94 Room Air 10/19/16 12:00 95 Room Air 10/19/16 11:53 101/65 (77) 10/19/16 11:35 36.8 79 18 89/44 (59) 93 Room Air 10/19/16 08:00 95 Room Air 10/19/16 07:52 37.2 84 16 106/68 (81) 97 Room Air 10/19/16 04:00 93 Room Air 10/19/16 03:57 37.3 69 19 105/63 (77) 93 Room Air Lab Results: Results Past 24 Hours Test 10/19/16 05:15 Range/Units White Blood Count 21.55 4.8-10.8 K/uL Red Blood Count 2.56 4.7-6.1 M/uL Hemoglobin 8.4 14.0-18.0 g/dL Hematocrit 24.7 42-52 % Mean Corpuscular Volume 96.5 80-100 fL Mean Corpuscular Hemoglobin 32.8 25-34 pg Mean Corpuscular Hemoglobin Concent 34.0 32-36 g/dl RDW Standard Deviation 77.5 36.4-46.3 fL RDW Coefficient of Variation 21.7 11.5-14.5 % Platelet Count 87 130-400 K/uL Mean Platelet Volume 11.4 7.4-10.4 fL Nucleated RBC Absolute Count (auto) 0.02 0-0 K/uL Nucleated Red Blood Cells % 0.1 % Sodium Level 135 136-145 mmol/L Potassium Level 4.3 3.5-5.1 mmol/L Chloride Level 99 98-107 mmol/L Carbon Dioxide Level 28 21-32 mmol/L Anion Gap 8.0 3-11 mmol/L Blood Urea Nitrogen 65 7-18 mg/dl Creatinine 1.80 0.60-1.40 mg/dl Est Creatinine Clear Calc Drug Dose 41.1 ml/min Estimated GFR () 42.9 Estimated GFR (Non- 37.0 BUN/Creatinine Ratio 35.9 10-20 Random Glucose 106 70-99 mg/dl Calcium Level 6.9 8.5-10.1 mg/dl Magnesium Level 2.6 1.8-2.4 mg/dl
[2016-10-20] MEDS: ZOLPIDEM TARTRATE 5 MG TAB PO PRN ×2 (03:25→21:08)
[2016-10-20] MEDS: ACETAMINOPHEN 325 MG TAB PO PRN (04:50)
[2016-10-20] MEDS ORDERED: ACETAMINOPHEN 325 MG TAB PO ONE (04:51)
[2016-10-20 04:55] LABS: PARTIAL THROMBOPLASTIN RATIO 1.1
[2016-10-20 05:02] LABS: BUN/CREATININE RATIO 31.1 (10-20); CALCIUM 6.8 mg/dl (8.5-10.1); MAGNESIUM 2.4 mg/dl (1.8-2.4); POTASSIUM 4.1 mmol/L (3.5-5.1)
[2016-10-20 05:10] LABS: HEMATOCRIT 23.6 % (42-52); MEAN CELL VOLUME 96.3 fL (80-100); MEAN CORPUSCULAR HEMOGLOBIN 33.5 pg (25-34); MEAN CORPUSCULAR HGB CONC 34.7 g/dl (32-36); MEAN PLATELET VOLUME 11.6 fL (7.4-10.4); PLATELET COUNT 138 K/uL (130-400); RED BLOOD COUNT 2.45 M/uL (4.7-6.1); WHITE BLOOD COUNT 17.56 K/uL (4.8-10.8)
[2016-10-20 05:27] LABS: ANISOCYTOSIS PRESENT; BASO % 0.1 %; BASO ABS # 0.01 K/uL (0-0.2); COMPLETE YES; IG% 0.3 %; LYMPH % 3.4 %; MONO % 3.8 %; NEUT % 92.4 %; SPHEROCYTE OCCASIONAL
--- NOTE | 2016-10-20 05:33 | Progress Note ---
Internal Med Progress Note Date of Service: Oct 20, 2016. Provider Documentation: Made aware by RN of tachycardia around 330AM. CR 120s (sinus tachy as per RN) Px somewhat anxious as per RN px later noted to have fever spike. px denies cp, sob some dry cough sx no GI/ sx R shoulder better chronic L knee pain CXR poss infilt L lactic acid = 2.2 AP Severe sepsis SIRS plus lactic acidosis (immunocompromised px, chronic steroid tx) poss HAP CS, Zosyn IV albumin one dose for now to facilitate tissue perfusion ff lactic acid Hold AM diuretics for now. Will relay to AM provider. Vital Signs: Date Time Temp Pulse Resp B/P (MAP) Pulse Ox O2 Delivery O2 Flow Rate FiO2 10/20/16 07:55 36.8 103 20 89/57 (68) 93 Room Air 10/20/16 05:55 37.5 10/20/16 04:42 38.4 73 24 104/63 (77) 97 Room Air 10/20/16 04:00 Room Air 10/20/16 03:30 123 10/20/16 00:01 92 Room Air 10/19/16 23:47 37.1 76 18 107/66 (80) 92 Room Air 10/19/16 20:00 Room Air 10/19/16 18:48 36.6 88 18 95/60 (72) 95 Room Air 10/19/16 16:00 Room Air 10/19/16 14:42 36.9 77 20 105/61 (76) 94 Room Air 10/19/16 12:00 95 Room Air 10/19/16 11:53 101/65 (77) 10/19/16 11:35 36.8 79 18 89/44 (59) 93 Room Air Lab Results: Results Past 24 Hours Test 10/20/16 04:20 10/20/16 04:35 10/20/16 05:40 Range/Units White Blood Count 17.56 4.8-10.8 K/uL Red Blood Count 2.45 4.7-6.1 M/uL Hemoglobin 8.2 14.0-18.0 g/dL Hematocrit 23.6 42-52 % Mean Corpuscular Volume 96.3 80-100 fL Mean Corpuscular Hemoglobin 33.5 25-34 pg Mean Corpuscular Hemoglobin Concent 34.7 32-36 g/dl Platelet Count 138 130-400 K/uL Mean Platelet Volume 11.6 7.4-10.4 fL Neutrophils (%) (Auto) 92.4 % Lymphocytes (%) (Auto) 3.4 % Monocytes (%) (Auto) 3.8 % Eosinophils (%) (Auto) 0.0 % Basophils (%) (Auto) 0.1 % Neutrophils # (Auto) 16.23 1.4-6.5 K/uL Lymphocytes # (Auto) 0.60 1.2-3.4 K/uL Monocytes # (Auto) 0.67 0.11-0.59 K/uL Eosinophils # (Auto) 0.00 0-0.5 K/uL Basophils # (Auto) 0.01 0-0.2 K/uL RDW Standard Deviation 74.8 36.4-46.3 fL RDW Coefficient of Variation 21.0 11.5-14.5 % Immature Granulocyte % (Auto) 0.3 % Immature Granulocyte # (Auto) 0.05 0.00-0.02 K/uL Anisocytosis PRESENT Spherocytes OCCASIONAL Activated Partial Thromboplast Time 29.2 21.0-31.0 SECONDS Partial Thromboplastin Ratio 1.1 Sodium Level 135 136-145 mmol/L Potassium Level 4.1 3.5-5.1 mmol/L Chloride Level 98 98-107 mmol/L Carbon Dioxide Level 27 21-32 mmol/L Anion Gap 10.0 3-11 mmol/L Blood Urea Nitrogen 62 7-18 mg/dl Creatinine 2.00 0.60-1.40 mg/dl Est Creatinine Clear Calc Drug Dose 37.0 ml/min Estimated GFR () 37.8 Estimated GFR (Non- 32.6 BUN/Creatinine Ratio 31.1 10-20 Random Glucose 100 70-99 mg/dl Calcium Level 6.8 8.5-10.1 mg/dl Magnesium Level 2.4 1.8-2.4 mg/dl Lactic Acid Level 2.2 0.4-2.0 mmol/L Microbiology Results 10/20/16 Blood Culture, Received Pending 10/20/16 Blood Culture, Received Pending
[2016-10-20] MEDS ORDERED: ALBUMIN HUMAN 25% 12.5 GM/50 ML VIAL IV STA (05:35)
--- NOTE | 2016-10-20 07:33 | DIAGNOSTIC IMAGING REPORT ---
CHEST ONE VIEW PORTABLE HISTORY: fever COMPARISON: Chest 10/16/2016. FINDINGS: No pneumothorax. No pleural effusions. The heart remains mildly enlarged. The right lung is clear. There is new left retrocardiac airspace opacity. Small hiatus hernia. IMPRESSION: A new left retrocardiac airspace opacity consistent with a pneumonia. This may be secondary to aspiration. Recommend follow-up to ensure resolution. Electronically signed by: Dwight Padilla M.D. 10/20/2016 7:31 AM Dictated Date/Time: 10/20/2016 7:30 AM
[2016-10-20] MEDS ORDERED: PIPERACILLIN/TAZOBACTAM 4.5 GM/100ML D5W IV STA (07:57)
[2016-10-20] MEDS: CYANOCOBALAMIN 500 MCG TAB (VIT B-12) PO SCH (08:07)
[2016-10-20] MEDS: ASPIRIN 81 MG ECTAB PO SCH (08:08)
[2016-10-20] MEDS: ASCORBIC ACID 500 MG TAB PO SCH (08:09)
[2016-10-20] MEDS: MULTIVITAMIN TAB PO SCH (08:10)
[2016-10-20] MEDS: CHOLECALCIFEROL 1000 INTER.UNIT TAB PO SCH (08:10)
[2016-10-20] MEDS: PANTOprazole SOD 40 MG TAB PO SCH (08:10)
[2016-10-20] MEDS: TRIAMCINOLONE ACET 0.1% CR 15 GM TUBE EXT SCH ×2 (08:11→21:00)
[2016-10-20] MEDS: LIDODERM (LIDOCAINE) PATCH 5% TD SCH (08:11)
[2016-10-20] MEDS: METOPROLOL SUCC 25MG EXT REL TAB PO SCH ×3 (08:11→21:09)
[2016-10-20] MEDS ORDERED: PIPERACILL/TAZOBAC IV 3.375 GM in DEXTROSE 5% 100ML IV ONE (08:30)
[2016-10-20] MEDS ORDERED: PIPERACILL/TAZOBAC CONSULT ACTIVE PRN (08:30)
[2016-10-20] MEDS ORDERED: TORSEMIDE 20 MG TAB PO SCH (09:00)
[2016-10-20] MEDS ORDERED: PIPERACILL/TAZOBAC IV 3.375 GM in DEXTROSE 5% 100ML IV SCH (14:00)
[2016-10-20 14:59] LABS: URINE APPEARANCE CLOUDY (CLEAR); URINE BILIRUBIN NEG (NEG); URINE COLOR DK YELLOW; URINE EPITHELIAL CELL AUTO >30 /lpf (0-5); URINE NITRITE NEG (NEG); URINE SPECIFIC GRAVITY 1.023 (1.000-1.030); UROBILINOGEN POS (NEG); ZZUR CULT IF INDIC CLEAN CATCH YES
[2016-10-20 15:25] LABS: MANUAL MICROSCOPIC REQUIRED? NO; REVIEW REQ? YES
[2016-10-20 15:29] LABS: URINE PATH CASTS 5-10 GRANULAR CASTS /lpf (0)
--- NOTE | 2016-10-20 17:23 | Cardiology Follow-Up ---
Subjective General Date of Service: Oct 20, 2016. Chief Complaint: follow up cardiomyopathy Pt evaluation today including: conversation w/ patient, physical exam History of Present Illness The patient is a 70 year old male seen in follow-up. Patient was about to start his evening meal. He is feeling comfortable and denies any shortness of breath present. The trivial to mild lower extremity edema noted yesterday is improved. He tolerated the dose of IV furosemide yesterday and was transitioned to oral torsemide today. He has not been initiated with treatment for pneumonia. Allergies Coded Allergies: Sulfamethoxazole w/Trimethoprim (Verified Allergy, Unknown, Hives, 10/16/16 ) Social History Smoking Status: Never Smoker Hx Tobacco Use In Past Year?: No Hx Alcohol Use - Type And Amou: No Hx Substance Use - Type And Am: No Problem List Medical Problems: (1) Acute on chronic renal failure Status: Acute (2) Anemia Status: Acute (3) Anemia Status: Acute (4) CAD (coronary artery disease) Status: Chronic (5) Cardiac ischemia Status: Acute (6) Elevated troponin Status: Acute (7) Frequent falls Status: Acute (8) Thrombocytopenia Status: Acute (9) Weakness Status: Acute Physical Exam Vital Signs Last Vital Signs Documentation Date Time Temp Pulse Resp B/P (MAP) Pulse Ox O2 Delivery O2 Flow Rate FiO2 10/20/16 16:00 99 Room Air 10/20/16 15:40 36.9 68 18 138/87 (104) Physical Exam Constitutional: Level of Distress: NAD Neck: supple Lungs: Auscultation: pertinent finding (mildly decreased BS at bases) Extremities: no edema (trace edema to mid tibias bilaterally) Assessment and Plan Assessment and Plan Impression: 1. Ischemic CM, severe LV systolic dysfunction, volume status stable, compensated. 2. NSVT Plan: Given CM large infarct pattern on echo and EKG NSVT is not suprising. Not a candidate for AICD given other comorbitites, prognosis poor from standpoint of non cardiac illnesses. Continue toprol. He has been transitioned from oral furosemide to oral torsemide. Will need close outpt cardio follow up. Laboratory Results Last 24 Hours Test 10/20/16 00:00 10/20/16 04:20 10/20/16 04:35 10/20/16 10:50 Urine Color DK YELLOW Urine Appearance CLOUDY Urine pH 5.0 Urine Specific [place] 1.023 Urine Protein 1+ Urine Glucose (UA) NEG Urine Ketones NEG Urine Occult Blood NEG Urine Nitrite NEG Urine Bilirubin NEG Urine Urobilinogen POS Urine Leukocyte Esterase NEG Urine WBC (Auto) 1-5 /hpf Urine RBC (Auto) 0-4 /hpf Urine Hyaline Casts (Auto) 5-10 /lpf Urine Epithelial Cells (Auto) >30 /lpf Urine Bacteria (Auto) NEG Urine Pathogenic Casts 5-10 GRANULAR CASTS /lpf Urine Yeast (Auto) White Blood Count 17.56 K/uL Red Blood Count 2.45 M/uL Hemoglobin 8.2 g/dL Hematocrit 23.6 % Mean Corpuscular Volume 96.3 fL Mean Corpuscular Hemoglobin 33.5 pg Mean Corpuscular Hemoglobin Concent 34.7 g/dl Platelet Count 138 K/uL Mean Platelet Volume 11.6 fL Neutrophils (%) (Auto) 92.4 % Lymphocytes (%) (Auto) 3.4 % Monocytes (%) (Auto) 3.8 % Eosinophils (%) (Auto) 0.0 % Basophils (%) (Auto) 0.1 % Neutrophils # (Auto) 16.23 K/uL Lymphocytes # (Auto) 0.60 K/uL Monocytes # (Auto) 0.67 K/uL Eosinophils # (Auto) 0.00 K/uL Basophils # (Auto) 0.01 K/uL RDW Standard Deviation 74.8 fL RDW Coefficient of Variation 21.0 % Immature Granulocyte % (Auto) 0.3 % Immature Granulocyte # (Auto) 0.05 K/uL Anisocytosis PRESENT Spherocytes OCCASIONAL Activated Partial Thromboplast Time 29.2 SECONDS Partial Thromboplastin Ratio 1.1 Sodium Level 135 mmol/L Potassium Level 4.1 mmol/L Chloride Level 98 mmol/L Carbon Dioxide Level 27 mmol/L Anion Gap 10.0 mmol/L Blood Urea Nitrogen 62 mg/dl Creatinine 2.00 mg/dl Est Creatinine Clear Calc Drug Dose 37.0 ml/min Estimated GFR () 37.8 Estimated GFR (Non- 32.6 BUN/Creatinine Ratio 31.1 Random Glucose 100 mg/dl Calcium Level 6.8 mg/dl Magnesium Level 2.4 mg/dl Lactic Acid Level 2.2 mmol/L 1.4 mmol/L Procalcitonin 1.77 ng/ml
[2016-10-20] MEDS ORDERED: LPT20 PO (19:40)
[2016-10-20] MEDS ORDERED: LVQ250 PO (19:40)
[2016-10-20] MEDS ORDERED: TPRSR25 PO (19:40)
[2016-10-20] MEDS ORDERED: ULT50X PO (19:40)
--- NOTE | 2016-10-20 19:42 | Discharge Instructions ---
Discharge Instructions Date of Service Oct 20, 2016. Admission Reason for Admission: Dvt, Recent Inferior Myocardial Infarction Discharge Discharge Diagnosis / Problem: RT SHOULDER PAIN /DVT OF RT ARM /PNEUMIONIA / RECENT NC Discharge Goals Goal(s): Decrease discomfort, Increase independence, Improve disease control, Diagnostic testing, Therapeutic intervention Activity Recommendations Activity Limitations: resume your previous activity . Instructions / Follow-Up Instructions / Follow-Up HOSPITAL FOLLOW UP on 10/22/2016 @ 3:[address] Pradeep Mayer MD [facility] FOLLOW UP WITH ORTHOPEDICS DR MCGARRY IN 3-6 MONTHS NEEDED FOR REPEAT STEROID INJECTION ON RT SHOULDER IF PAIN RETURNS Current Hospital Diet Patient's current hospital diet: AHA Diet (Heart Healthy), Low Sodium Diet (2gm Na) Discharge Diet Recommended Diet: AHA Diet (Heart Healthy), Low Sodium Diet (2gm Na) Fluid Restriction: 2000 ml (8 cups) Pending Studies Studies pending at discharge: no Laboratory Results Lipid Panel Test 10/17/16 06:02 Range/Units Triglycerides Level 143 0-150 mg/dl Cholesterol Level 133 0-200 mg/dl HDL Cholesterol 53 mg/dl Cholesterol/HDL Ratio 2.5 LDL Cholesterol, Calculated 51 mg/dl Medical Emergencies . Who to Call and When: Medical Emergencies: If at any time you feel your situation is an emergency, please call 911 immediately. . Non-Emergent Contact Non-Emergency issues call your: Primary Care Provider . . "Provider Documentation" section prepared by Lalita Krueger. . VTE Core Measure Inpt VTE Proph given/why not?: [facility] [place] Drug Monitoring Program Search Results: no issues identified
--- NOTE | 2016-10-20 19:51 | Progress Note ---
Internal Med Progress Note Date of Service: Oct 20, 2016. Provider Documentation: SUBJECTIVE: pt spiked temp last night 38 C with SVT HR in 140's ( remains asymptomatic ) lab showed lactic acid was elevated > 2 chest xray shows left lower lobe pneumonia -new finding pt complain of non productive cough , no chest pain or palpitation afebrile now Rt shoulder pain has resolved, mild pain on rt mid upper arm Pt and his very disappointment as not able to be discharged home today after explaining the Cxray finding of pneumonia /fever /tachycardia pt is agreeable to stay in hospital for continued treatment OBJECTIVE: Vital Signs-as noted below Exam: General-no sign of distress Eyes-Rt sided eye patch ( 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 ASSESSMENT & PLAN: FEVER /TACHYCARDIA /PNEUMONIA : Spiked temp last night associated with Tachycardia mild elevation of Lactic acid remains afebrile with stable hemodynamics today Cxray shows left lower lobe infiltrate possible aspiration pt denies of any swallowing difficulty ; has non productive cough mild Leukocytosis with 11K initially started on IV Zosyn will change to Oral Levaquin repeat Cxray in AM RIGHT SHOULDER PAIN : Ortho eval requested appreciate input s/p steroid injection ; symptom improved markedly possible rt subacromial/sub deltoid bursitis CT of rt shoulder : 1. No acute fracture or dislocation of the right shoulder. 2. Moderate osteophytosis of the right acromioclavicular joint and mild osteoarthritis of the right glenohumeral joint. 3. Suboptimal evaluation of the rotator cuff given CT technique. 4. Suspected fluid within the subacromial/subdeltoid bursa. 5. Mild ground glass opacities within visualized portions of the right lung. -no evidence of metastatic disease -cont pain control -Tramadol increased to 50 mg Q6hrs PRN , stool softener ordered to prevent narcotic induced constipation -heating pad / Lidoderm patch RT UPPER EXT DVT USG of rt upper arm : 1. Deep vein thrombosis identified within the right basilic vein at the antecubital fossa and extending into the mid forearm. 2. There is also a partially thrombosed right cephalic vein. 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 , hemolytic anemia very high risk for bleeding complication unable to transfuse PRBC at [facility] due to presence of multiple antibodies Heme onc consult requested -appreciate input form Dr Carter will hold off anticoagulation cont symptom control with PO meds and heating pad as needed out pt follow up with Heme onc RECENT NSTEMI recent NSTEMI on 10/05/16 required tx to [facility] recommended high risk for anjana /post operative complication due to contrast exposure /ATN requiring dialysis /advance CAD may not be amenable to intervention was treated with IV heparin for 48 hrs added Beta christina , aspirin ,atorvastatin EF post CT was found to be 25 % -ischemic cardiomyopathy pt developed acute systolic CHF required aggressive diuresis pt is continued with all his Cardiac meds Aspirin , Beta christina , statin , Lasix ACEI/ARB contraindicated due to MIKE /pt developed high anion gap metabolic acidosis with ATN EKG shows stable T wave inversion troponin been trending down form prior labs monitor in Tele Cardiology eval requested -appreciate input stable form cardiac stand poor long term acute care registered nurse prognosis due to sever cardiomyopathy and minimum intervention option available ISCHEMIC CARDIOMYOPATHY /WITH SEVERE SYSTOLIC DYSFUNCTION : due to Above compensated Lasix D/salima , pt started on Torsemide per Cardiology cont fluid restriction 2 L /day low salt diet 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 : Evaluated by Hematology in [facility] antibody -PF4 was negative at [facility] Indirect Bili was elevated, HIGH LDH , low haptoglobin , Lucy test positive for IgG no schistocytes noted in peripheral smear s/p transfusion of total 3 units of PRBC was treated with IV steroids , later transitioned to Oral prednisone 80 mg daily ( 1mg/kg/daily ) given IV Rituxamab on 10/11/16 cont Oral prednisone follow daily CBC ; platelet count normalized to 134 today , Hb 8.2 Leukocytosis possible due to steroid induced heme onc consult requested -appreciate input will need out pt Heme onc follow up and will be scheduled for weekly IV Rituxamab 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 : s/p resection approx 26 yrs back including enucleation of rt eye s/p adjuvant radiation tx follow with Dr Henry ARCHULETA at [facility] as per recent follow up on 09/27 -no recurrence of disease METASTATIC RENAL CELL CA : s/p Left nephrectomy on August 2015 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 and 1 cm noted tumor extended to perinephric tissue negative margin , negative Lymphovascular invasion noted imaging study in 2015 showed metastatic disease involving left acetabulum and L4 vertebral body s/p palliative radiation tx completed on 04/2016 CT of rt shoulder does not show any metastatic disease follows with Heme Onc Dr Tha Carter on Xgeva SQ 120 mg Q 4weeks PRIOR HX OF CVA in 1993 resulting left sided weakness ambulated with help of cane prior hx of fall PT/OT eval requested -stable to return home FULL CODE DVT PROPHYLAXIS ; Moderate to high risk anticoagulation not ordered for thrombocytopenia /anemia SCD and teds pt is encouraged to ambulate DISPOSITION : monitor in tele can be discharged home tomorrow if remains afebrile for 24 hrs while on PO ABx medicine follow up with Dr Pradeep Mayer Vital Signs: Date Time Temp Pulse Resp B/P (MAP) Pulse Ox O2 Delivery O2 Flow Rate FiO2 10/20/16 16:00 99 Room Air 10/20/16 15:40 36.9 68 18 138/87 (104) 94 Room Air 10/20/16 13:28 86 96/60 (72) 10/20/16 12:00 99 Room Air 10/20/16 08:15 96 98/59 (72) 10/20/16 08:00 99 Room Air 10/20/16 07:55 36.8 103 20 89/57 (68) 93 Room Air 10/20/16 05:55 37.5 10/20/16 04:42 38.4 73 24 104/63 (77) 97 Room Air 10/20/16 04:00 Room Air 10/20/16 03:30 123 10/20/16 00:01 92 Room Air 10/19/16 23:47 37.1 76 18 107/66 (80) 92 Room Air 10/19/16 20:00 Room Air Lab Results: Results Past 24 Hours Test 10/20/16 00:00 10/20/16 04:20 10/20/16 04:35 10/20/16 10:50 Range/Units Urine Color DK YELLOW Urine Appearance CLOUDY CLEAR Urine pH 5.0 4.5-7.5 Urine Specific [place] 1.023 1.000-1.030 Urine Protein 1+ NEG Urine Glucose (UA) NEG NEG Urine Ketones NEG NEG Urine Occult Blood NEG NEG Urine Nitrite NEG NEG Urine Bilirubin NEG NEG Urine Urobilinogen POS NEG Urine Leukocyte Esterase NEG NEG Urine WBC (Auto) 1-5 0-5 /hpf Urine RBC (Auto) 0-4 0-4 /hpf Urine Hyaline Casts (Auto) 5-10 0-5 /lpf Urine Epithelial Cells (Auto) >30 0-5 /lpf Urine Bacteria (Auto) NEG NEG Urine Pathogenic Casts 5-10 GRANULAR CASTS 0 /lpf Urine Yeast (Auto) NONE PRSENT White Blood Count 17.56 4.8-10.8 K/uL Red Blood Count 2.45 4.7-6.1 M/uL Hemoglobin 8.2 14.0-18.0 g/dL Hematocrit 23.6 42-52 % Mean Corpuscular Volume 96.3 80-100 fL Mean Corpuscular Hemoglobin 33.5 25-34 pg Mean Corpuscular Hemoglobin Concent 34.7 32-36 g/dl Platelet Count 138 130-400 K/uL Mean Platelet Volume 11.6 7.4-10.4 fL Neutrophils (%) (Auto) 92.4 % Lymphocytes (%) (Auto) 3.4 % Monocytes (%) (Auto) 3.8 % Eosinophils (%) (Auto) 0.0 % Basophils (%) (Auto) 0.1 % Neutrophils # (Auto) 16.23 1.4-6.5 K/uL Lymphocytes # (Auto) 0.60 1.2-3.4 K/uL Monocytes # (Auto) 0.67 0.11-0.59 K/uL Eosinophils # (Auto) 0.00 0-0.5 K/uL Basophils # (Auto) 0.01 0-0.2 K/uL RDW Standard Deviation 74.8 36.4-46.3 fL RDW Coefficient of Variation 21.0 11.5-14.5 % Immature Granulocyte % (Auto) 0.3 % Immature Granulocyte # (Auto) 0.05 0.00-0.02 K/uL Anisocytosis PRESENT Spherocytes OCCASIONAL Activated Partial Thromboplast Time 29.2 21.0-31.0 SECONDS Partial Thromboplastin Ratio 1.1 Sodium Level 135 136-145 mmol/L Potassium Level 4.1 3.5-5.1 mmol/L Chloride Level 98 98-107 mmol/L Carbon Dioxide Level 27 21-32 mmol/L Anion Gap 10.0 3-11 mmol/L Blood Urea Nitrogen 62 7-18 mg/dl Creatinine 2.00 0.60-1.40 mg/dl Est Creatinine Clear Calc Drug Dose 37.0 ml/min Estimated GFR () 37.8 Estimated GFR (Non- 32.6 BUN/Creatinine Ratio 31.1 10-20 Random Glucose 100 70-99 mg/dl Calcium Level 6.8 8.5-10.1 mg/dl Magnesium Level 2.4 1.8-2.4 mg/dl Lactic Acid Level 2.2 1.4 0.4-2.0 mmol/L Procalcitonin 1.77 0-0.5 ng/ml Microbiology Results 10/20/16 Blood Culture, Received Pending 10/20/16 Blood Culture, Received Pending 10/20/16 Urine Culture, Received Pending
[2016-10-20] MEDS ORDERED: LEVOFLOXACIN 500 MG TAB PO ONE (20:05)
[2016-10-20] MEDS: ATORVASTATIN 20 MG TAB PO SCH (21:09)
[2016-10-20] MEDS ORDERED: VANCOMYCIN INJ 0 MG in SODIUM CHLORIDE 0.9% 250ML 250 ML IV STA (22:49)
[2016-10-20] MEDS ORDERED: VANCOMYCIN INJ 2,000 MG in SODIUM CHLORIDE 0.9% 500ML 500 ML IV SCH (23:00)
[2016-10-20] MEDS ORDERED: VANCOMYCIN CONSULT ACTIVE PRN (23:15)
[2016-10-21] VITALS (7 sets, daily range): BP systolic 103–107; BP diastolic 53–66; PULSE 80–84; TEMP 36.7–37.4; O2SAT 93–96
--- NOTE | 2016-10-21 00:51 | Pharmacy Progress Note ---
Pharmacy Antibiotic Consult Date of Service: Oct 21, 2016. Pharmacy Dosing Scope * Pharmacy is consulted to initiate Vancomycin IV dosing therapy, order appropriate labs and adjust drug dose/frequency. Subjective * The patient is a 70 year old male admitted on October 16, 2016 at 17:03 for possible HAP. Objective Height (Feet): 6 Height (Inches): 2.00 Weight (Kilograms): 77.500 Lab Results (24hrs): Test 10/20/16 04:20 10/20/16 04:35 10/20/16 10:50 White Blood Count 17.56 K/uL (4.8-10.8) Red Blood Count 2.45 M/uL (4.7-6.1) Hemoglobin 8.2 g/dL (14.0-18.0) Hematocrit 23.6 % (42-52) Mean Corpuscular Volume 96.3 fL (80-100) Mean Corpuscular Hemoglobin 33.5 pg (25-34) Mean Corpuscular Hemoglobin Concent 34.7 g/dl (32-36) Platelet Count 138 K/uL (130-400) Mean Platelet Volume 11.6 fL (7.4-10.4) Neutrophils (%) (Auto) 92.4 % Lymphocytes (%) (Auto) 3.4 % Monocytes (%) (Auto) 3.8 % Eosinophils (%) (Auto) 0.0 % Basophils (%) (Auto) 0.1 % Neutrophils # (Auto) 16.23 K/uL (1.4-6.5) Lymphocytes # (Auto) 0.60 K/uL (1.2-3.4) Monocytes # (Auto) 0.67 K/uL (0.11-0.59) Eosinophils # (Auto) 0.00 K/uL (0-0.5) Basophils # (Auto) 0.01 K/uL (0-0.2) RDW Standard Deviation 74.8 fL (36.4-46.3) RDW Coefficient of Variation 21.0 % (11.5-14.5) Immature Granulocyte % (Auto) 0.3 % Immature Granulocyte # (Auto) 0.05 K/uL (0.00-0.02) Anisocytosis PRESENT Spherocytes OCCASIONAL Activated Partial Thromboplast Time 29.2 SECONDS (21.0-31.0) Partial Thromboplastin Ratio 1.1 Sodium Level 135 mmol/L (136-145) Potassium Level 4.1 mmol/L (3.5-5.1) Chloride Level 98 mmol/L (98-107) Carbon Dioxide Level 27 mmol/L (21-32) Anion Gap 10.0 mmol/L (3-11) Blood Urea Nitrogen 62 mg/dl (7-18) Creatinine 2.00 mg/dl (0.60-1.40) Est Creatinine Clear Calc Drug Dose 37.0 ml/min Estimated GFR () 37.8 Estimated GFR (Non- 32.6 BUN/Creatinine Ratio 31.1 (10-20) Random Glucose 100 mg/dl (70-99) Calcium Level 6.8 mg/dl (8.5-10.1) Magnesium Level 2.4 mg/dl (1.8-2.4) Lactic Acid Level 2.2 mmol/L (0.4-2.0) 1.4 mmol/L (0.4-2.0) Procalcitonin 1.77 ng/ml (0-0.5) Micro Results: RUN DATE: 10/21/16 [facility] [address] LAB PAGE 1 RUN TIME: 21 Specimen Inquiry PATIENT: PIPPACURRY MICAELA CASTRO LOC: [facility] U # : [id number] AGE/SX: 70/M ROOM: 29 REG : 10/16/[address]: Lalita Krueger M.D. : 1945 BED: 2 DIS : STATUS: ADM IN TLOC: SPEC #: [id number] LEWIS: 10/20/16 STATUS: RES REQ #: [id number] RECD: 10/20/[address] [facility] [address]: Curry Tran M.D. SOURCE: BLOOD ENTR: 10/20/[address] [facility] [address]: Heladio Valdez M.D. [facility]: Tha Carter M.D. Pervez, Ayesha H., M.D. Rogusky, Edwin, M.D. Rozick, Mark S., M.D. ORDERED: BLOOD CULTURE Procedure Result Verified Site BLD CULT Preliminary 10/21/16-0021 Organism 1 GRAM POSITIVE COCCI SENS SENSITIVITIES DEPENDENT ON FURTHER IDENTIFICATION Phoned Positive Blood Culture Gram Stain Report to LEXII GRAHAM on 10/20/16 At 2242 By GAYLE. Results were verbalized back to GAYLE. Assessment & Plan * Patient was admitted on 10/20 with possible HAP and started empirically on Zosyn with blood and urine cultures pending. Zosyn was D/C after 2 doses. Blood cultures now positive for Gm + cocci and patient now started on Vanco. * Loading dose given: 2 gm (~25.8mg/kg) and will follow with 1100mg (~14.2mg/kg ) IV every 24 hours. * Goal trough level estimate: between 16-19 mcg/mL. * Trough level is ordered for 2230 on 10/23/16 just prior to the 4th dose. Pharmacy will continue to follow and will adjust dose/frequency as necessary. Thank you
[2016-10-21] MEDS: TRIAMCINOLONE ACET 0.1% CR 15 GM TUBE EXT SCH (07:32)
[2016-10-21] MEDS: ASPIRIN 81 MG ECTAB PO SCH (07:32)
[2016-10-21] MEDS: CYANOCOBALAMIN 500 MCG TAB (VIT B-12) PO SCH (07:33)
[2016-10-21] MEDS: ASCORBIC ACID 500 MG TAB PO SCH (07:33)
[2016-10-21] MEDS: CHOLECALCIFEROL 1000 INTER.UNIT TAB PO SCH (07:33)
[2016-10-21] MEDS: PANTOprazole SOD 40 MG TAB PO SCH (07:33)
[2016-10-21] MEDS: MULTIVITAMIN TAB PO SCH (07:33)
[2016-10-21] MEDS: LIDODERM (LIDOCAINE) PATCH 5% TD SCH (07:35)
--- NOTE | 2016-10-21 07:57 | DIAGNOSTIC IMAGING REPORT ---
LEFT KNEE 3 VIEWS CLINICAL HISTORY: Chronic left knee pain. FINDINGS: AP, crosstable lateral, and sunrise portable views of left knee are compared to study dated 07/01/2015. The skeletal structures are osteopenic. No fracture is identified. There is moderate tricompartmental degenerative joint space narrowing, greatest in the lateral and patellofemoral compartments. There are small patellar enthesophytes as well as the tiny lateral marginal osteophytes. No large joint effusion is identified. Mild soft tissue edema is present around the knee. There is atherosclerotic calcification of the popliteal artery. IMPRESSION: 1. Mild soft tissue swelling with no acute bony abnormality seen in the left knee. 2. Osteopenia and arthritic change as above. This is similar to the 07/01/2015 examination. Electronically signed by: Boston Echevarria M.D. 10/21/2016 7:56 AM Dictated Date/Time: 10/21/2016 7:55 AM
--- NOTE | 2016-10-21 07:59 | DIAGNOSTIC IMAGING REPORT ---
SINGLE VIEW CHEST CLINICAL HISTORY: Pneumonia. FINDINGS: An AP, portable, upright chest radiograph is compared to study dated 10/20/2016. The examination is degraded by portable technique, apical lordotic positioning, and patient rotation. The heart is enlarged and there is atherosclerotic calcification of the thoracic aorta. The pulmonary vasculature is noncongested. Patchy airspace consolidation at the left lung base is similar to yesterday. The right lung appears clear. No large pleural effusion or pneumothorax is seen. The skeletal structures are osteopenic. The bony thorax is grossly intact. IMPRESSION: 1. Patchy airspace consolidation is again seen at the left lung base and suggests pneumonia. Clinical correlation will be required. 2. Cardiomegaly without radiographic evidence of congestive failure. Electronically signed by: Boston Echevarria M.D. 10/21/2016 7:58 AM Dictated Date/Time: 10/21/2016 7:56 AM
[2016-10-21 08:01] LABS: HEMATOCRIT 20.6 % (42-52); MEAN CELL VOLUME 96.3 fL (80-100); MEAN CORPUSCULAR HEMOGLOBIN 33.2 pg (25-34); MEAN CORPUSCULAR HGB CONC 34.5 g/dl (32-36); MEAN PLATELET VOLUME 10.6 fL (7.4-10.4); PLATELET COUNT 118 K/uL (130-400); RED BLOOD COUNT 2.14 M/uL (4.7-6.1); WHITE BLOOD COUNT 16.18 K/uL (4.8-10.8)
[2016-10-21 08:10] LABS: BUN/CREATININE RATIO 31.8 (10-20); POTASSIUM 3.8 mmol/L (3.5-5.1)
[2016-10-21 08:37] LABS: CALCIUM 6.5 mg/dl (8.5-10.1)
[2016-10-21] MEDS ORDERED: LEVOFLOXACIN 250 MG TAB PO SCH (09:00)
[2016-10-21] MEDS: METOPROLOL SUCC 25MG EXT REL TAB PO SCH ×2 (10:19→14:31)
--- NOTE | 2016-10-21 20:11 | Discharge Summary ---
Discharge Summary Date of Service Oct 21, 2016. Discharge Summary Admission Date: October 16, 2016 at 17:03 Discharge Date: Oct 21, 2016 Discharge Disposition: Acute care facility ([facility] ) Principal Diagnosis: RT SHOULDER PAIN /DVT OF RT ARM /PNEUMONIA /RECENT PA Consultations: CARDIOLOGY ORTHOPEDICS Medication Reconciliation New Medications: Atorvastatin (Atorvastatin Calcium) 20 Mg Tab 40 MG PO PM for 30 Days, #60 TAB 2 Refills Levofloxacin (Levofloxacin) 250 Mg Tab 250 MG PO DAILY for 3 Days, #3 TAB Metoprolol Succinate (Metoprolol Succinate ER) 25 Mg Tabcr 25 MG PO TID for 30 Days, #90 TABS 3 Refills Tramadol HCl (Tramadol HCl) 50 Mg Tab 50 MG PO Q6H PRN for Pain, #30 TAB Continued Medications: Alclometasone Dipropionate (Alclometasone Dipropionat) 0.05 % Cre Unknown Dose TOP BID Ascorbic Acid (Vitamin C) 1,000 Mg Tab 1000 MG PO DAILY Aspirin (Aspirin Ec) 81 Mg Tab 81 MG PO DAILY Atorvastatin (Lipitor) 40 Mg Tab 40 MG PO DAILY for 30 Days, #30 TAB 3 Refills (This prescription has been renewed) Cholecalciferol (Vitamin D3) 1,000 Unit Tab 1 TAB PO DAILY for 90 Days, #90 TAB 3 Refills Cyanocobalamin (Vitamin B-12) 1,000 Mcg Tab 1000 MCG PO DAILY, TAB Denosumab (Xgeva) 120 Mg/1.7 Ml Inj 120 MCG INJ MONTHLY INJECT 120MCG(1.7ML) UNDER THE SKIN MONTHLY Fish Oil ([place]-3) 1 Ea Cap 1 CAP PO DAILY, CAP Folic Acid (Folvite) 1 Mg Tab 1 MG PO DAILY, TAB Multiple Vitamin (Multi Vitamin Daily) 1 Tab Tab 1 TAB PO DAILY Nitroglycerin (Nitrostat) 0.4 Mg Tab 0.4 MG UT PRN, BTL [place]-3 Fatty Acids (Fish Oil 1200 mg) 1 Cap Cap 1 CAP PO DAILY Omeprazole (Prilosec) 20 Mg Capcr 20 MG PO DAILY, CAP Prednisone (Prednisone) 20 Mg Tab 80 MG PO DAILY, TAB Triamcinolone Acet (Aristocort 0.1%) 90 Appln/30 Gm Cr 1 APPL TOP BID, #60 Discontinued Medications: Furosemide (Lasix) 40 Mg Tab 40 MG PO BID, TAB Metoprolol Succ (Toprol Xl) (Toprol-Xl) 25 Mg Tabcr 75 MG PO DAILY, #30 TAB Potassium Phosphate Monobasic (K-Phos) 500 Mg Tab 2 TAB PO QAM, #180 Admission Information HPI (per Admitting provider): this is a 70 yo Male with complicated past medical hx with recent NSTEMI required transfer from [facility] to [facility] on 10/05/16 [place] [facility] [place] pt developed acute cardiac decompensation , severe ischemic cardiomyopathy with systolic dysfunction EF 25 % medical management of NSTEMI ,as pt was found to too high risk for cardiac cath /cardiac intervention diagnosed to have autoimmune hemolytic anemia , 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 pts' other medical Dx includes 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 , CKD stage 3 , AAA pt presenting to [facility] with complain of pain and swelling of rt upper arm form rt shoulder to elbow area also sharp pain on rt shoulder , worse with movement denies of any recent fall or trauma no fever or chills no complain of chest pain /SOB /no orthopnea , no CHAUDHARY Physical Exam (per Admitting): General Appearance: no apparent distress Eyes: + pertinent finding (has patch on rt eye s/p enucleation for sq cell ca ) Neck: thyroid normal Respiratory/Chest: chest non-tender, lungs clear, normal breath sounds, no respiratory distress, no accessory muscle use Abdomen/GI: non tender, soft Extremities/Musculoskelatal: + pertinent finding (bruise and swelling , positive tenderness on rt upper arm , tenderness on movement of rt shoulder ) Neurologic/Psych: alert, normal mood/affect, oriented x 3 Skin: normal color, warm/dry, no rash Lymphatic: no adenopathy Hospital Course ITP/AUTO IMMUNE HEMOLYTIC ANEMIA : hb dropped to 7.1 today unable to transfuse due to presence of multiple antibodies given recent NSTEMI /gram positive bacteremia -high risk for hemodynamic instability /acute PA in setting of severe anemia will need to be transferred to [facility] 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 Hematology Dr Nehal Carter recommend PRBc tx tx to [facility] for lack of required blood product at [facility] blood bank pt had recent tx to [facility] on 10/06/16 from [facility] ER with profound Anemia hb 6.9 unable to transfuse /NSTEMI was evaluated by Hematology [place] [facility] [place] antibody -PF4 was negative Indirect Bili was elevated, HIGH LDH , low haptoglobin , Lucy test positive for IgG no schistocytes noted in peripheral smear s/p transfusion of total 3 units of PRBC was treated with IV steroids , later transitioned to Oral prednisone 80 mg daily ( 1mg/kg/daily ) given IV Rituxamab on 10/11/16 FEVER /TACHYCARDIA /GRAM POSITIVE BACTEREMIA Spiked temp yesterday night associated with Tachycardia mild elevation of Lactic acid remains afebrile with stable hemodynamics today Cxray shows left lower lobe infiltrate possible aspiration blood culture X2 bottles gram positive cocci added IV vancomycin already on Levaquin RIGHT SHOULDER PAIN : Ortho eval requested appreciate input s/p steroid injection ; symptom improved markedly possible rt subacromial/sub deltoid bursitis CT of rt shoulder : 1. No acute fracture or dislocation of the right shoulder. 2. Moderate osteophytosis of the right acromioclavicular joint and mild osteoarthritis of the right glenohumeral joint. 3. Suboptimal evaluation of the rotator cuff given CT technique. 4. Suspected fluid within the subacromial/subdeltoid bursa. 5. Mild ground glass opacities within visualized portions of the right lung. -no evidence of metastatic disease -cont pain control -Tramadol increased to 50 mg Q6hrs PRN , stool softener ordered to prevent narcotic induced constipation -heating pad / Lidoderm patch RT UPPER EXT DVT USG of rt upper arm : 1. Deep vein thrombosis identified within the right basilic vein at the antecubital fossa and extending into the mid forearm. 2. There is also a partially thrombosed right cephalic vein. recent admission at [facility] with anemia /NSTEMI had multiple lab draws and IV site possible thrombophlebitis /also has underlying hypercoagulable status due to disseminated malignancy can not start on anticoagulation due to autoimmune thrombocytopenia , hemolytic anemia very high risk for bleeding complication unable to transfuse PRBC at [facility] due to presence of multiple antibodies Heme onc consult requested -appreciate input form Dr Carter will hold off anticoagulation cont symptom control with PO meds and heating pad as needed out pt follow up with Heme onc RECENT NSTEMI recent NSTEMI on 10/05/16 required tx to [facility] medical management recommended high risk for anjana /post operative complication due to contrast exposure /ATN requiring dialysis /advance CAD may not be amenable to intervention was treated with IV heparin for 48 hrs added Beta christina , aspirin ,atorvastatin EF post PA was found to be 25 % -ischemic cardiomyopathy pt developed acute systolic CHF required aggressive diuresis pt is continued with all his Cardiac meds Aspirin , Beta christina , statin , Lasix ACEI/ARB contraindicated due to MIKE /pt developed high anion gap metabolic acidosis with ATN EKG shows stable T wave inversion troponin been trending down form prior labs monitor in Tele Cardiology eval requested -appreciate input stable form cardiac stand poor cokeman prognosis due to sever cardiomyopathy and minimum intervention option available ISCHEMIC CARDIOMYOPATHY /WITH SEVERE SYSTOLIC DYSFUNCTION : due to Above compensated Lasix D/salima , pt started on Torsemide per Cardiology cont fluid restriction 2 L /day low salt diet monitor daily wt I 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 : s/p resection approx 26 yrs back including enucleation of rt eye s/p adjuvant radiation tx follow with Dr Figueroa ENT at 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 and 1 cm noted tumor extended to perinephric tissue negative margin , negative Lymphovascular invasion noted imaging study in 2015 showed metastatic disease involving left acetabulum and L4 vertebral body s/p palliative radiation tx completed on 04/2016 CT of rt shoulder does not show any metastatic disease follows with Heme Onc Dr Tha Carter on Xgeva SQ 120 mg Q 4weeks PRIOR HX OF CVA in 1993 resulting left sided weakness ambulated with help of cane FULL CODE DVT PROPHYLAXIS ; Moderate to high risk anticoagulation not ordered for thrombocytopenia /anemia SCD and teds pt is encouraged to ambulate DISPOSITION : Transfer to [facility] for further management of Autoimmune Hemolytic anemia in setting of gram positive bacteremia Accepting Physician Dr Simeon Ayers Total time spent on discharge = 40 mins This includes examination of the patient, discharge planning, medication reconciliation, and communication with other providers. Discharge Instructions Discharge Instructions Date of Service Oct 20, 2016. Admission Reason for Admission: Dvt, Recent Inferior Myocardial Infarction Discharge Discharge Diagnosis / Problem: RT SHOULDER PAIN /DVT OF RT ARM /PNEUMONIA / RECENT PA Discharge Goals Goal(s): Decrease discomfort, Increase independence, Improve disease control, Diagnostic testing, Therapeutic intervention Activity Recommendations Activity Limitations: resume your previous activity . Instructions / Follow-Up Instructions / Follow-Up HOSPITAL FOLLOW UP on 10/22/2016 @ 3:[address] Pradeep Mayer MD [facility] FOLLOW UP WITH ORTHOPEDICS DR MCGARRY IN 3-6 MONTHS NEEDED FOR REPEAT STEROID INJECTION ON RT SHOULDER IF PAIN RETURNS Current Hospital Diet Patient's current hospital diet: AHA Diet (Heart Healthy), Low Sodium Diet (2gm Na) Discharge Diet Recommended Diet: AHA Diet (Heart Healthy), Low Sodium Diet (2gm Na) Fluid Restriction: 2000 ml (8 cups) Pending Studies Studies pending at discharge: no Laboratory Results Lipid Panel Test 10/17/16 06:02 Range/Units Triglycerides Level 143 0-150 mg/dl Cholesterol Level 133 0-200 mg/dl HDL Cholesterol 53 mg/dl Cholesterol/HDL Ratio 2.5 LDL Cholesterol, Calculated 51 mg/dl Medical Emergencies . Who to Call and When: Medical Emergencies: If at any time you feel your situation is an emergency, please call 911 immediately. . Non-Emergent Contact Non-Emergency issues call your: Primary Care Provider . . "Provider Documentation" section prepared by Lalita Krueger. . VTE Core Measure Inpt VTE Proph given/why not?: Sanjuanita Zayas, SCD's [place] Drug Monitoring Program Search Results: no issues identified Additional Copies To Otis Medel D.O. Rozick, Mark S., M.D.
[2016-10-21] MEDS ORDERED: VANCOMYCIN INJ 1,100 MG in SODIUM CHLORIDE 0.9% 250ML 250 ML IV SCH (23:00)
[2016-10-23] MEDS ORDERED: VANCOMYCIN TROUGH SCH (22:30)
[2016-12-03] MEDS ORDERED: MAGIC SWIZZLE PO (13:14)
[2016-12-03] MEDS ORDERED: MOMLX PO (13:14)
[2016-12-03] MEDS ORDERED: ORJ MT (13:14)
[2016-12-03] MEDS ORDERED: MLXESC PO (13:14)
[2016-12-03] MEDS ORDERED: MRLP17X PO (13:14)
[2016-12-03] MEDS ORDERED: LSX40 PO (13:14)
== END 2016-10-21 15:29 | disposition short-term general hospital (02) | DRG 280 ==
LOC: ENRESERVTM → ENRESERVDT → C.EDB 10:44 → C.2T 17:03
PROVIDERS: ADMIT Hospitalist; ATTEND Hospitalist
PROC: 3E0U3BZ Introduction of Anesthetic Agent into Joints, Percutaneous Approach (ICD-10-PCS; principal; 2016-10-18)
DX: I82.611 Acute embolism and thrombosis of superficial veins of right upper extremity (principal); J18.9 Pneumonia, unspecified organism; I21.4 Non-ST elevation (NSTEMI) myocardial infarction; D69.3 Immune thrombocytopenic purpura; D59.1 Other autoimmune hemolytic anemias; I69.354 Hemiplegia and hemiparesis following cerebral infarction affecting left non-dominant side; C79.51 Secondary malignant neoplasm of bone; M75.51 Bursitis of right shoulder; I25.5 Ischemic cardiomyopathy; R00.0 Tachycardia, unspecified; N18.3 Chronic kidney disease, stage 3 (moderate); Z79.82 Long term (current) use of aspirin; Z79.899 Other long term (current) drug therapy; Z85.520 Personal history of malignant carcinoid tumor of kidney; Z79.52 Long term (current) use of systemic steroids; Z90.5 Acquired absence of kidney; Z92.3 Personal history of irradiation

== ENCOUNTER → 2016-11-05 | Outpatient (CLI) | payer BC ==
[~2016-11-05] MED LIST changes: +ACET-1311 PO; +ALCL0.05 TOP; +ATOR-24 PO; -CALC-354; +CHOL1000 PO; +CYAN10005 PO; +FOLI1TAB7 PO; +IPRASOL4 INH; +LEVO-17 PO; +LPT20 PO; +LPT40 PO; +LSX40 PO; +LVQ250 PO; +MAGIC SWIZZLE PO; +MAGIC1 PO; +MLXESC PO; +MOMLX PO; +MRLP17X PO; +NTRGSL/4 UT; +OMEG5CAP PO; +ORJ MT; +POLY335019 PO; +PRED20TA PO; +PRLSR20 PO; -SIMV80TA2 PO; +TPRSR/25 PO; +TPRSR25 PO; +ULT50X PO; +XGVI INJ; -[UNRECOGNIZED DRUG - REMARK] PO
[2016-11-05 10:07] LABS: HEMATOCRIT 26.6 % (42-52); MEAN CELL VOLUME 98.5 fL (80-100); MEAN CORPUSCULAR HEMOGLOBIN 32.6 pg (25-34); MEAN CORPUSCULAR HGB CONC 33.1 g/dl (32-36); WHITE BLOOD COUNT 10.43 K/uL (4.8-10.8)
[2016-11-05 10:34] LABS: BLOOD UREA NITROGEN 49 mg/dl (7-18); BUN/CREATININE RATIO 23.2 (10-20); CALCIUM 7.9 mg/dl (8.5-10.1); CARBON DIOXIDE 22 mmol/L (21-32); CHLORIDE 102 mmol/L (98-107); GLUCOSE 159 mg/dl (70-99); SODIUM 138 mmol/L (136-145)
[2016-11-05 11:10] LABS: MEAN PLATELET VOLUME 11.5 fL (7.4-10.4); PLATELET COUNT 80 K/uL (130-400)
[2016-11-05 11:14] LABS: ANISOCYTOSIS PRESENT; COMPLETE YES; EOS % 0.4 %; IG% 0.3 %; LYMPH % 2.3 %; LYMPH ABS # 0.24 K/uL (1.2-3.4); MONO % 2.3 %; NEUT % 94.7 %
== END | disposition home or self-care (01) ==
LOC: C.LABSPEC 08:46
PROVIDERS: ATTEND Internal Medicine Infectious Disease
DX: R78.81 Bacteremia (principal); B95.61 Methicillin susceptible Staphylococcus aureus infection as the cause of diseases classified elsewhere

== ENCOUNTER → 2016-11-08 | Outpatient (CLI) | payer BC ==
[2016-11-08 13:14] LABS: HEMATOCRIT 31.5 % (42-52); MEAN CELL VOLUME 101.3 fL (80-100); MEAN CORPUSCULAR HEMOGLOBIN 33.1 pg (25-34); MEAN CORPUSCULAR HGB CONC 32.7 g/dl (32-36); RED BLOOD COUNT 3.11 M/uL (4.7-6.1); WHITE BLOOD COUNT 6.66 K/uL (4.8-10.8)
[2016-11-08 13:15] LABS: MEAN PLATELET VOLUME 11.7 fL (7.4-10.4); PLATELET COUNT 67 K/uL (130-400)
[2016-11-08 13:26] LABS: BLOOD UREA NITROGEN 39 mg/dl (7-18); BUN/CREATININE RATIO 21.6 (10-20); CALCIUM 7.6 mg/dl (8.5-10.1); CARBON DIOXIDE 25 mmol/L (21-32); CHLORIDE 103 mmol/L (98-107); GLUCOSE 103 mg/dl (70-99); POTASSIUM 3.7 mmol/L (3.5-5.1); SODIUM 138 mmol/L (136-145)
== END | disposition home or self-care (01) ==
LOC: C.LABSPEC 12:33
PROVIDERS: ATTEND Internal Medicine Infectious Disease
DX: R78.81 Bacteremia (principal); B95.61 Methicillin susceptible Staphylococcus aureus infection as the cause of diseases classified elsewhere

== ENCOUNTER → 2016-11-12 | Outpatient (CLI) | payer BC ==
[2016-11-12 14:33] LABS: CALCIUM 7.3 mg/dl (8.5-10.1)
[2016-11-12 14:34] LABS: MEAN CELL VOLUME 102.4 fL (80-100); MEAN CORPUSCULAR HGB CONC 33.2 g/dl (32-36); MEAN PLATELET VOLUME 12.3 fL (7.4-10.4); PLATELET COUNT 75 K/uL (130-400); RED BLOOD COUNT 3.32 M/uL (4.7-6.1); WHITE BLOOD COUNT 6.96 K/uL (4.8-10.8)
[2016-11-12 14:36] LABS: BLOOD UREA NITROGEN 34 mg/dl (7-18); CARBON DIOXIDE 25 mmol/L (21-32); CHLORIDE 102 mmol/L (98-107); GLUCOSE 110 mg/dl (70-99); POTASSIUM 3.8 mmol/L (3.5-5.1); SODIUM 137 mmol/L (136-145)
[2016-11-12 16:56] LABS: ACANTHOCYTES 1+; ANISOCYTOSIS PRESENT; BASO % 0.1 %; BASO ABS # 0.01 K/uL (0-0.2); COMPLETE YES; ECHINOCYTES 1+; EOS % 1.3 %; IG% 0.1 %; LYMPH % 5.3 %; LYMPH ABS # 0.37 K/uL (1.2-3.4); MONO % 3.6 %; NEUT % 89.6 %; POLYCHROMASIA 1+
== END | disposition home or self-care (01) ==
LOC: C.LABSPEC 12:40
PROVIDERS: ATTEND Internal Medicine Infectious Disease
DX: R78.81 Bacteremia (principal); B95.61 Methicillin susceptible Staphylococcus aureus infection as the cause of diseases classified elsewhere

== ENCOUNTER → 2016-11-19 | Outpatient (CLI) | payer BC ==
[2016-11-19 14:43] LABS: MEAN CELL VOLUME 100.6 fL (80-100); MEAN CORPUSCULAR HEMOGLOBIN 33.2 pg (25-34); MEAN CORPUSCULAR HGB CONC 33.1 g/dl (32-36); RED BLOOD COUNT 3.58 M/uL (4.7-6.1); WHITE BLOOD COUNT 6.17 K/uL (4.8-10.8)
[2016-11-19 14:50] LABS: BLOOD UREA NITROGEN 33 mg/dl (7-18); BUN/CREATININE RATIO 18.5 (10-20); CARBON DIOXIDE 26 mmol/L (21-32); CHLORIDE 100 mmol/L (98-107); GLUCOSE 71 mg/dl (70-99); POTASSIUM 3.9 mmol/L (3.5-5.1); SODIUM 136 mmol/L (136-145)
[2016-11-19 15:08] LABS: MEAN PLATELET VOLUME 11.6 fL (7.4-10.4); PLATELET COUNT 67 K/uL (130-400)
[2016-11-19 15:09] LABS: BASO % 0.2 %; BASO ABS # 0.01 K/uL (0-0.2); COMPLETE YES; ECHINOCYTES 1+; EOS % 2.4 %; IG% 0.5 %; LYMPH % 7.6 %; LYMPH ABS # 0.47 K/uL (1.2-3.4); MONO % 4.5 %; NEUT % 84.8 %; PLT ESTIMATE DECREASED
== END | disposition home or self-care (01) ==
LOC: C.LABSPEC 13:47
PROVIDERS: ATTEND Internal Medicine Infectious Disease
DX: R78.81 Bacteremia (principal); B95.61 Methicillin susceptible Staphylococcus aureus infection as the cause of diseases classified elsewhere

== ENCOUNTER 2016-11-28 01:34 | Emergency (ER) | payer BC, OTHER ==
[~2016-11-28] VITALS: Ht 188 cm; Wt 84.0 kg
[~2016-11-28 01:34] MED LIST changes: -ACET-1311 PO; -IPRASOL4 INH; -KPH PO; -LEVO-17 PO; -LPT40 PO; -LSX40 PO; -MAGIC SWIZZLE PO; -MAGIC1 PO; -MLXESC PO; -MOMLX PO; -MRLP17X PO; -ORJ MT; -POLY335019 PO; -TPRSR/25 PO
[2016-11-28 01:39] VITALS: TEMP 36.7; Ht 188 cm; Wt 84.0 kg
--- NOTE | 2016-11-28 02:05 | EMERGENCY ROOM VISIT NOTE ---
History Report prepared by Castroibnicolás: Naz Gong Under the Supervision of: Dr. Melanie Fair D.O. First contact with patient: 01:49 Chief Complaint: HEMATURIA Stated Complaint: BLEEDING FROM PENIS History of Present Illness The patient is a 70 year old male who presents to the Emergency Room with complaints of persistent hematuria that started last night. He states he woke up to pee and noticed blood and clots in the toilet. He denies any dysuria or discomfort when he urinates. He notes he only has one kidney and denies ever experiencing hematuria like his current symptoms ever before. He admits to taking a daily baby Aspirin and is on daily Lasix. The patient's states he fell twice last week and bruised his left hip, but the patient denies hitting his head or sustaining any other injuries. He has also been getting regular blood work because of a recent blood infection, but his states he is no longer receiving IV antibiotics. The patient admits to some left leg swelling but states this is chronic. He denies any nausea, vomiting, melena or hematochezia. Source of History: patient, spouse/significant other () Onset: last night Position: other (urinary system) Timing: other (persistent) Associated Symptoms: No nausea, No vomiting, No melena, No hematochezia Review of Systems See HPI for pertinent positives & negatives. A total of 10 systems reviewed and were otherwise negative. 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 (11) Pneumonia (12) Recent inferior myocardial infarction (13) Right shoulder pain Surgical Problems: (1) History of inguinal hernia repair (2) History of sinus surgery Family History FH: heart disease FHx: cancer Hypertension Social History Smoking Status: Former Smoker Alcohol Use: none Drug Use: none Marital Status: Housing Status: lives with family Occupation Status: retired Current/Historical Medications Scheduled Alclometasone Dipropionate (Alclometasone Dipropionat), Unknown Dose TOP BID Ascorbic Acid (Vitamin C), 1,000 MG PO DAILY Aspirin (Aspirin Ec), 81 MG PO DAILY Atorvastatin (Atorvastatin Calcium), 40 MG PO DAILY Cholecalciferol (Vitamin D3), 1,000 UNIT PO DAILY Cyanocobalamin (Vitamin B-12), 1,000 MCG PO DAILY Denosumab (Xgeva), 120 MCG INJ MONTHLY Fish Oil ([place]-3), 1 CAP PO DAILY Folic Acid (Folvite), 1 MG PO DAILY Furosemide (Furosemide), 20 MG PO DAILY Metoprolol Succinate (Metoprolol Succinate ER), 25 MG PO TID Multiple Vitamin (Multi Vitamin Daily), 1 TAB PO DAILY [place]-3 Fatty Acids (Fish Oil 1200 mg), 1 CAP PO DAILY Omeprazole (Prilosec), 20 MG PO DAILY Potassium Phosphate Monobasic (K-Phos), 500 MG PO BID Prednisone (Prednisone), 60 MG PO DAILY Triamcinolone Acet (Aristocort 0.1%), 1 APPL TOP BID Scheduled PRN Nitroglycerin (Nitrostat), 0.4 MG UT UD PRN for Chest Pain Allergies Coded Allergies: Sulfamethoxazole w/Trimethoprim (Verified Allergy, Unknown, Hives, 11/28/16 ) Physical Exam Vital Signs Date Time Temp Pulse Resp B/P (MAP) Pulse Ox O2 Delivery O2 Flow Rate FiO2 11/28/16 03:35 70 18 105/58 95 11/28/16 01:39 36.7 87 18 95/63 96 Room Air Physical Exam HEENT: Head - normocephalic and atraumatic. Patch over right eye, left eye is normal. Pupil is equal, round, and reactive to light. Extraocular eye muscle is intact, and sclera is anicteric. Nose - moist nasal mucosa without discharge. Mouth - moist buccal mucosa. Oropharynx is nonerythematous and there is no tonsillar exudate or edema noted. Neck: Supple; no JVD, nuchal rigidity, cervical lymphadenopathy, or auscultated bruits. Heart: Regular rate and rhythm. There is a normal S1 and S2 with no murmurs, clicks, or gallops appreciated. Lungs: Clear to auscultation bilaterally with no wheezes, rales, or rhonchi. Abdomen: Soft, completely nontender, nondistended, with good bowel sounds. There are no palpable pulsatile masses or hepatosplenomegaly. There is no guarding, rigidity, or rebound noted. Extremities: No evidence of cyanosis, clubbing, or edema. There are easily palpable peripheral pulses. Skin: Skin is slightly pale, but warm and dry with good turgor and no rashes. Medical Decision & Procedures Laboratory Results 11/28/16 02:26 Red Blood Count 3.40, Mean Corpuscular Volume 94.7, Mean Corpuscular Hemoglobin 32.6, Mean Corpuscular Hemoglobin Concent 34.5, Mean Platelet Volume 10.7, Neutrophils (%) (Auto) 79.5, Lymphocytes (%) (Auto) 12.2, Monocytes (%) (Auto) 6.6, Eosinophils (%) (Auto) 0.9, Basophils (%) (Auto) 0.0, Neutrophils # (Auto) 5.07, Lymphocytes # (Auto) 0.78, Monocytes # (Auto) 0.42, Eosinophils # (Auto) 0.06, Basophils # (Auto) 0.00 11/28/16 02:26 Test 11/28/16 01:50 11/28/16 02:26 Urine Color RED Urine Appearance CLOUDY (CLEAR) Urine pH 5.5 (4.5-7.5) Urine Specific [place] 1.015 (1.000-1.030) Urine Protein 1+ (NEG) Urine Glucose (UA) NEG (NEG) Urine Ketones TRACE (NEG) Urine Occult Blood 2+ (NEG) Urine Nitrite NEG (NEG) Urine Bilirubin NEG (NEG) Urine Urobilinogen NEG (NEG) Urine Leukocyte Esterase NEG (NEG) Urine RBC >30 /hpf (0-4) Urine WBC 5-10 /hpf (0-5) Urine Epithelial Cells 10-20 /lpf (0-5) Urine Bacteria NEG (NEG) White Blood Count 6.38 K/uL (4.8-10.8) Red Blood Count 3.40 M/uL (4.7-6.1) Hemoglobin 11.1 g/dL (14.0-18.0) Hematocrit 32.2 % (42-52) Mean Corpuscular Volume 94.7 fL (80-100) Mean Corpuscular Hemoglobin 32.6 pg (25-34) Mean Corpuscular Hemoglobin Concent 34.5 g/dl (32-36) Platelet Count 87 K/uL (130-400) Mean Platelet Volume 10.7 fL (7.4-10.4) Neutrophils (%) (Auto) 79.5 % Lymphocytes (%) (Auto) 12.2 % Monocytes (%) (Auto) 6.6 % Eosinophils (%) (Auto) 0.9 % Basophils (%) (Auto) 0.0 % Neutrophils # (Auto) 5.07 K/uL (1.4-6.5) Lymphocytes # (Auto) 0.78 K/uL (1.2-3.4) Monocytes # (Auto) 0.42 K/uL (0.11-0.59) Eosinophils # (Auto) 0.06 K/uL (0-0.5) Basophils # (Auto) 0.00 K/uL (0-0.2) RDW Standard Deviation 56.2 fL (36.4-46.3) RDW Coefficient of Variation 16.1 % (11.5-14.5) Immature Granulocyte % (Auto) 0.8 % Immature Granulocyte # (Auto) 0.05 K/uL (0.00-0.02) Red Blood Cell Morphology Unremarkable Anion Gap 9.0 mmol/L (3-11) Est Creatinine Clear Calc Drug Dose 39.4 ml/min Estimated GFR () 37.8 Estimated GFR (Non- 32.6 BUN/Creatinine Ratio 29.5 (10-20) Calcium Level 8.1 mg/dl (8.5-10.1) Laboratory results per my review. Procedure Bladder irrigation ED Course 0152: Past medical records reviewed. The patient was evaluated in room B12. A complete history and physical exam was performed. Lab studies were drawn. A Douglas catheter was placed. 0245: The patient's urinary catheter was irrigated once and it was clear. 0319: I reevaluated the patient. He is feeling much better and notes he has an appointment later today with Dr. Carter and will follow up with him. I discussed his results and discharge instructions and he verbalized complete understanding and agreement. Medical Decision I attest that I have personally reviewed the patient's current medication list. Patient was found to have a low blood pressure on screening and does not require follow-up. The patient is a 70 year old male who presents to the ED with hematuria. The different diagnoses include: worsening thrombocytopenia, bladder tumor, advancement of the renal cell carcinoma, trauma, anemia and hemorrhagic cystitis. Lab results show: WBC is 6.3, Hemoglobin is stable at 11.1, Platelets are stable at 87, BUN is 59, Creatinine is 2 which is baseline for the patient. A urinalysis has trace ketones, 2+ blood, no bacteria, greater than 30 red blood cells and 5 to 10 white blood cells. Urinalysis showed no acute signs of infection. The urine will be sent for culture. The patient does take 81 mg of aspirin daily. He denies any history of hematuria. He does have history of renal cell carcinoma. His creatinine is 2.0 today. It ranges from 1.8-2.0. I do have concern for this patient's presentation of painless hematuria. I've asked patient to follow-up with his PCP for further evaluation. The patient has a history of thrombocytopenia. His platelet count is stable today. Impression Primary Impression: Hematuria Scribe Attestation The scribe's documentation has been prepared under my direction and personally reviewed by me in its entirety. I confirm that the note above accurately reflects all work, treatment, procedures, and medical decision making performed by me. Departure Information Dispostion Home / Self-Care Referrals Pradeep Mayer M.D. (PCP) Patient Instructions ED Hematuria, My [facility] Additional Instructions Rest. Follow up later today with PCP for painless hematuria. You will need some follow up with Urology and a bladder ultrasound
[2016-11-28] MEDS ORDERED: LSX40 PO (02:23)
[2016-11-28] MEDS ORDERED: KPH PO (02:24)
[2016-11-28] MEDS ORDERED: LPT40 PO (02:25)
[2016-11-28] MEDS ORDERED: TPRSR/25 PO (02:26)
[2016-11-28 02:36] LABS: MANUAL MICROSCOPIC REQUIRED? YES; URINE APPEARANCE CLOUDY (CLEAR); URINE BILIRUBIN NEG (NEG); URINE COLOR RED; URINE NITRITE NEG (NEG); URINE PH 5.5 (4.5-7.5); URINE SPECIFIC GRAVITY 1.015 (1.000-1.030); UROBILINOGEN NEG (NEG)
[2016-11-28 02:37] LABS: REVIEW REQ? NO
[2016-11-28 02:42] LABS: URINE RBC >30 /hpf (0-4)
[2016-11-28 02:44] LABS: URINE BACTERIA NEG (NEG)
[2016-11-28 02:57] LABS: HEMATOCRIT 32.2 % (42-52); MEAN CELL VOLUME 94.7 fL (80-100); MEAN CORPUSCULAR HEMOGLOBIN 32.6 pg (25-34); MEAN CORPUSCULAR HGB CONC 34.5 g/dl (32-36); WHITE BLOOD COUNT 6.38 K/uL (4.8-10.8)
[2016-11-28 02:58] LABS: MEAN PLATELET VOLUME 10.7 fL (7.4-10.4); PLATELET COUNT 87 K/uL (130-400)
[2016-11-28 03:05] LABS: BUN/CREATININE RATIO 29.5 (10-20); CALCIUM 8.1 mg/dl (8.5-10.1); POTASSIUM 4.5 mmol/L (3.5-5.1)
[2016-11-28 03:20] LABS: COMPLETE YES; EOS % 0.9 %; IG% 0.8 %; LYMPH % 12.2 %; LYMPH ABS # 0.78 K/uL (1.2-3.4); MONO % 6.6 %; NEUT % 79.5 %
[2016-11-28 03:35] VITALS: BP 105/58; PULSE 70; O2SAT 95
== END 2016-11-28 03:35 | disposition home or self-care (01) ==
LOC: C.EDB 01:36
DX: R31.9 Hematuria, unspecified (principal); Z79.82 Long term (current) use of aspirin; Z79.899 Other long term (current) drug therapy; I25.10 Atherosclerotic heart disease of native coronary artery without angina pectoris; Z86.718 Personal history of other venous thrombosis and embolism; Z85.89 Personal history of malignant neoplasm of other organs and systems; E78.5 Hyperlipidemia, unspecified; Z87.01 Personal history of pneumonia (recurrent); Z80.9 Family history of malignant neoplasm, unspecified; Z82.49 Family history of ischemic heart disease and other diseases of the circulatory system; Z87.891 Personal history of nicotine dependence

== ENCOUNTER 2016-12-02 15:33 | Inpatient (IN) | payer BC, OTHER ==
[~2016-12-02] VITALS: Ht 188 cm; Wt 77.0 kg
[~2016-12-02 15:33] MED LIST changes: -ATOR-24 PO; +KPH PO; -LPT20 PO; +LPT40 PO; +LSX40 PO; -LVQ250 PO; +TPRSR/25 PO; -TPRSR25 PO; -ULT50X PO
[2016-12-02] MEDS ORDERED: SODIUM CHLORIDE 0.9% 1000ML 1,000 ML IV STA (15:43)
[2016-12-02 16:21] LABS: COMPLETE YES; EOS % 0.2 %; HEMATOCRIT 32.1 % (42-52); IG% 1.3 %; LYMPH % 8.9 %; LYMPH ABS # 0.74 K/uL (1.2-3.4); MEAN CELL VOLUME 93.3 fL (80-100); MEAN CORPUSCULAR HEMOGLOBIN 33.7 pg (25-34); MEAN CORPUSCULAR HGB CONC 36.1 g/dl (32-36); MEAN PLATELET VOLUME 10.6 fL (7.4-10.4); MONO % 2.6 %; PLATELET COUNT 100 K/uL (130-400); RED BLOOD COUNT 3.44 M/uL (4.7-6.1); WHITE BLOOD COUNT 8.31 K/uL (4.8-10.8)
[2016-12-02 16:26] LABS: ISTAT CREATININE 1.9 mg/dl (0.6-1.3); ISTAT HEMOGLOBIN 10.2 g/dl (14.0-18.0); ISTAT IONIZED CALCIUM 1.39 mmol/l (1.12-1.32)
[2016-12-02 16:31] LABS: INR 1.1 (0.9-1.1); PARTIAL THROMBOPLASTIN RATIO 1.1; PROTHROMBIN TIME (PATIENT) 11.4 SECONDS (9.0-12.0)
[2016-12-02 16:39] LABS: BUN/CREATININE RATIO 33.9 (10-20); CALCIUM 10.3 mg/dl (8.5-10.1); MAGNESIUM 1.9 mg/dl (1.8-2.4); POTASSIUM 4.3 mmol/L (3.5-5.1)
--- NOTE | 2016-12-02 16:40 | DIAGNOSTIC IMAGING REPORT ---
CHEST ONE VIEW PORTABLE CLINICAL HISTORY: EVALUATE ALTERED MENTAL STATUS/WEAKNESS COMPARISON STUDY: 10/21/2016 FINDINGS: Moderate stable cardiomegaly. Persistent bibasilar parenchymal infiltrative change. Mid and upper lungs are considered clear. Pulmonary vascular structures prominent. IMPRESSION: Mild bibasilar parenchymal infiltrates similar compared to the prior study. Pulmonary vascular congestion. Moderate stable cardiomegaly. The above report was generated using voice recognition software. It may contain grammatical, syntax or spelling errors. Electronically signed by: Pradeep Lozoya M.D. 12/02/2016 4:39 PM Dictated Date/Time: 12/02/2016 4:38 PM
[2016-12-02 16:44] LABS: CKMB/CK RATIO 23.1 (0-3.0)
[2016-12-02 16:44] LABS: MANUAL MICROSCOPIC REQUIRED? NO; REVIEW REQ? YES; URINE APPEARANCE CLEAR (CLEAR); URINE BILIRUBIN NEG (NEG); URINE COLOR YELLOW; URINE NITRITE NEG (NEG); URINE SPECIFIC GRAVITY 1.015 (1.000-1.030); UROBILINOGEN NEG (NEG); ZZUR CULT IF INDIC CLEAN CATCH NO
--- NOTE | 2016-12-02 17:41 | EMERGENCY ROOM VISIT NOTE ---
History Report prepared by Alpesh: Brea Suazo Under the Supervision of: Dr. Anjel Urban D.O. First contact with patient: 15:41 Chief Complaint: WEAKNESS Stated Complaint: PALE,FATIGUE,WEAKNESS History of Present Illness The patient is a 71 year old male who presents to the Emergency Room with complaints of constant weakness beginning a few days ago. The patient states that he has been in and out of the hospital after a heart attack 2 months ago. He reports that he was admitted to the hospital for a blood infection at the end of that month and has been seen here again since then. He notes that he has fallen twice going from his bedroom to his bathroom at night in the last few days. The patient complains of tiredness, shakiness, paleness, difficulty walking, shortness of breath, and decreased appetite. He denies any Source of History: patient Onset: a few days ago Position: other (global) Quality: other (weakness) Timing: constant Note: The patient complains of tiredness, shakiness, paleness, difficulty walking, shortness of breath, and decreased appetite. Review of Systems See HPI for pertinent positives & negatives. A total of 10 systems reviewed and were otherwise negative. 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 (11) Pneumonia (12) Recent inferior myocardial infarction (13) Right shoulder pain Surgical Problems: (1) History of inguinal hernia repair (2) History of sinus surgery Family History FH: heart disease FHx: cancer Hypertension Social History Smoking Status: Former Smoker Alcohol Use: none Drug Use: none Marital Status: Housing Status: lives with family Occupation Status: retired Current/Historical Medications Scheduled Ascorbic Acid (Vitamin C), 1,000 MG PO DAILY Aspirin (Aspirin Ec), 81 MG PO DAILY Atorvastatin (Atorvastatin Calcium), 40 MG PO DAILY Cholecalciferol (Vitamin D3), 1,000 UNIT PO DAILY Cyanocobalamin (Vitamin B-12), 1,000 MCG PO DAILY Denosumab (Xgeva), 120 MCG INJ MONTHLY Folic Acid (Folvite), 1 MG PO DAILY Furosemide (Furosemide), 40 MG PO BID Metoprolol Succinate (Metoprolol Succinate ER), 25 MG PO DAILY Multiple Vitamin (Multi Vitamin Daily), 1 TAB PO DAILY [place]-3 Fatty Acids (Fish Oil 1200 mg), 1 CAP PO DAILY Omeprazole (Prilosec), 20 MG PO DAILY Prednisone (Prednisone), 50 MG PO DAILY Scheduled PRN Nitroglycerin (Nitrostat), 0.4 MG UT UD PRN for Chest Pain Allergies Coded Allergies: Sulfamethoxazole w/Trimethoprim (Verified Allergy, Unknown, Hives, 11/28/16 ) Physical Exam Vital Signs Date Time Temp Pulse Resp B/P (MAP) Pulse Ox O2 Delivery O2 Flow Rate FiO2 12/02/16 17:23 89 24 128/69 12/02/16 17:01 77 18 111/74 97 12/02/16 16:31 79 24 126/71 97 12/02/16 16:29 120/71 12/02/16 16:03 98 12/02/16 16:03 72 14 95 12/02/16 15:37 36.6 67 20 95/67 95 Room Air Physical Exam CONSTITUTIONAL/VITAL SIGNS: Reviewed / noted above. GENERAL: Non-toxic in appearance. INTEGUMENTARY: Warm, dry, and [place]. HEAD: Normocephalic. EYES: Patch over the right eye. ENT/OROPHARYNX: clear and moist. LYMPHADENOPATHY/NECK: Is supple without lymphadenopathy or meningismus. RESPIRATORY: Lungs clear and equal. CARDIOVASCULAR: Regular rate and rhythm. GI/ABDOMEN: Soft and nontender. No organomegaly or pulsatile mass. No rebound or guarding. Normal bowel sounds. EXTREMITIES: Warm and well perfused. BACK: No CVA tenderness. NEUROLOGICAL: Intact without focal deficits. PSYCHIATRIC: normal affect. MUSCULOSKELETAL: Normally developed with good muscle tone. Medical Decision & Procedures ER Provider Diagnostic Interpretation: X ray results and stated below per my interpretation and radiology interpretation. CHEST ONE VIEW PORTABLE FINDINGS: Moderate stable cardiomegaly. Persistent bibasilar parenchymal infiltrative change. Mid and upper lungs are considered clear. Pulmonary vascular structures prominent. IMPRESSION: Mild bibasilar parenchymal infiltrates similar compared to the prior study. Pulmonary vascular congestion. Moderate stable cardiomegaly. The above report was generated using voice recognition software. It may contain grammatical, syntax or spelling errors. Electronically signed by: Pradeep Lozoya M.D. 12/02/2016 4:39 PM Dictated Date/Time: 12/02/2016 4:38 PM Laboratory Results 12/02/16 16:04 Red Blood Count 3.44, Mean Corpuscular Volume 93.3, Mean Corpuscular Hemoglobin 33.7, Mean Corpuscular Hemoglobin Concent 36.1, Mean Platelet Volume 10.6, Neutrophils (%) (Auto) 87.0, Lymphocytes (%) (Auto) 8.9, Monocytes (%) (Auto) 2.6, Eosinophils (%) (Auto) 0.2, Basophils (%) (Auto) 0.0, Neutrophils # (Auto) 7.22, Lymphocytes # (Auto) 0.74, Monocytes # (Auto) 0.22, Eosinophils # (Auto) 0.02, Basophils # (Auto) 0.00 12/02/16 16:04 Test 12/02/16 16:04 12/02/16 16:13 12/02/16 16:30 White Blood Count 8.31 K/uL (4.8-10.8) Red Blood Count 3.44 M/uL (4.7-6.1) Hemoglobin 11.6 g/dL (14.0-18.0) Hematocrit 32.1 % (42-52) Mean Corpuscular Volume 93.3 fL (80-100) Mean Corpuscular Hemoglobin 33.7 pg (25-34) Mean Corpuscular Hemoglobin Concent 36.1 g/dl (32-36) Platelet Count 100 K/uL (130-400) Mean Platelet Volume 10.6 fL (7.4-10.4) Neutrophils (%) (Auto) 87.0 % Lymphocytes (%) (Auto) 8.9 % Monocytes (%) (Auto) 2.6 % Eosinophils (%) (Auto) 0.2 % Basophils (%) (Auto) 0.0 % Neutrophils # (Auto) 7.22 K/uL (1.4-6.5) Lymphocytes # (Auto) 0.74 K/uL (1.2-3.4) Monocytes # (Auto) 0.22 K/uL (0.11-0.59) Eosinophils # (Auto) 0.02 K/uL (0-0.5) Basophils # (Auto) 0.00 K/uL (0-0.2) RDW Standard Deviation 54.5 fL (36.4-46.3) RDW Coefficient of Variation 16.0 % (11.5-14.5) Immature Granulocyte % (Auto) 1.3 % Immature Granulocyte # (Auto) 0.11 K/uL (0.00-0.02) Prothrombin Time 11.4 SECONDS (9.0-12.0) Prothromb Time International Ratio 1.1 (0.9-1.1) Activated Partial Thromboplast Time 27.4 SECONDS (21.0-31.0) Partial Thromboplastin Ratio 1.1 Est Creatinine Clear Calc Drug Dose 38.7 ml/min Estimated GFR () 37.5 Estimated GFR (Non- 32.4 BUN/Creatinine Ratio 33.9 (10-20) Calcium Level 10.3 mg/dl (8.5-10.1) Magnesium Level 1.9 mg/dl (1.8-2.4) Total Bilirubin 0.7 mg/dl (0.2-1) Direct Bilirubin 0.2 mg/dl (0-0.2) Aspartate Amino Transf (AST/SGOT) 25 U/L (15-37) Alanine Aminotransferase (ALT/SGPT) 9 U/L (12-78) Alkaline Phosphatase 51 U/L (45-117) Total Creatine Kinase 29 U/L (39-308) Creatine Kinase MB 6.7 ng/ml (0.5-3.6) Creatine Kinase MB Ratio 23.1 (0-3.0) Troponin I 0.203 ng/ml (0-0.045) Total Protein 5.3 gm/dl (6.4-8.2) Albumin 2.6 gm/dl (3.4-5.0) Lipase 263 U/L (73-393) Bedside Hemoglobin 10.2 g/dl (14.0-18.0) Bedside Hematocrit 30 % (42-52) Bedside Sodium 131 mEq/L (135-144) Bedside Potassium 4.2 mEq/L (3.3-5.0) Bedside Chloride 96 mEq/L (101-112) Bedside Total CO2 24 mEq/l (24-31) Anion Gap 16.0 mmol/L (16-25) Bedside Blood Urea Nitrogen 69 mg/dl (7-18) Bedside Creatinine 1.9 mg/dl (0.6-1.3) Bedside Glucose (other) 144 mg/dl (70-99) Bedside Ionized Calcium (Aisha) 1.39 mmol/l (1.12-1.32) Urine Color YELLOW Urine Appearance CLEAR (CLEAR) Urine pH 5.0 (4.5-7.5) Urine Specific [place] 1.015 (1.000-1.030) Urine Protein NEG (NEG) Urine Glucose (UA) NEG (NEG) Urine Ketones NEG (NEG) Urine Occult Blood NEG (NEG) Urine Nitrite NEG (NEG) Urine Bilirubin NEG (NEG) Urine Urobilinogen NEG (NEG) Urine Leukocyte Esterase NEG (NEG) Urine WBC (Auto) 0 /hpf (0-5) Urine RBC (Auto) 0-4 /hpf (0-4) Urine Hyaline Casts (Auto) 1-5 /lpf (0-5) Urine Epithelial Cells (Auto) 10-20 /lpf (0-5) Urine Bacteria (Auto) NEG (NEG) Urine Pathogenic Casts /lpf (0) Laboratory results as stated above per my review. Medications Administered Medications (Trade) Dose Ordered Sig/Kathy Route Start Time Stop Time Status Last Admin Dose Admin Sodium Chloride 1,000 ml @ 999 mls/hr Q1H1M STAT IV 12/02/16 15:43 12/02/16 16:43 DC 12/02/16 16:02 999 MLS/HR ECG Indication: weakness Rate (beats per minute): 92 Rhythm: sinus rhythm Findings: PAC, T-wave inversion (Lateral) Comparison ECG Date: 18-OCT-2016 Change: no significant change ED Course 1541: Previous medical records were reviewed. The patient was evaluated in room A9. A complete history and physical examination was performed. 1543: Sodium Chloride 1000 ml @ 999 mls/hr IV. 1728: Discussed the patient's case with Dr. Collins. The patient will be evaluated for further treatment and disposition. 1736: On reevaluation, the patient is doing well. I discussed the results and findings with the patient. He verbalized agreement of the treatment plan. I spoke with Dr. Collins of the [facility]. The patient will be evaluated for further management and care. Medical Decision Differential includes acute coronary syndrome, myocardial infarction, CVA, TIA, anemia, infection, pneumonia, UTI, pyelonephritis, poor nutrition, dehydration, electrolyte disturbance,hypoglycemia. Medication Reconciliation: I attest that I have personally reviewed the patient' s current medication list. Blood pressure Screening: Patient was found to have normal blood pressure on screening and does not require follow-up. Consults Time Called: 172 Consulting Physician: Dr. Dennis Rubio Returned Call: [phone] Discussed the patient's case with Dr. Collins. The patient will be evaluated for further treatment and disposition. Impression Primary Impression: Weakness Additional Impression: Elevated troponin Scribe Attestation The scribe's documentation has been prepared under my direction and personally reviewed by me in its entirety. I confirm that the note above accurately reflects all work, treatment, procedures, and medical decision making performed by me. Departure Information Dispostion Being Evaluated By Hospitalist Referrals Pradeep Mayer M.D. (PCP) Patient Instructions [facility] Problem Qualifiers
[2016-12-02 18:16] VITALS: O2SAT 97; Ht 188 cm; Wt 77.0 kg
[2016-12-02] MEDS ORDERED: POLYETHYLENE (MIRALAX) 17 GM PACK PO PRN (18:30)
[2016-12-02] MEDS ORDERED: ONDANSETRON INJ 2 MG/ML 2 ML VIAL IV PRN (18:30)
[2016-12-02] MEDS ORDERED: MAGNESIUM HYDROXIDE SUSP 30 ML UDC PO PRN (18:30)
[2016-12-02] MEDS ORDERED: ACETAMINOPHEN 325 MG TAB PO PRN (18:30)
[2016-12-02] MEDS ORDERED: ALUMINUM/MAGNESIUM/SIMETH (MAALOX MAX) 30 ML UDC PO PRN (18:30)
[2016-12-02 19:00] VITALS: O2SAT 96
--- NOTE | 2016-12-02 19:59 | History and Physical ---
History & Physical Date & Time of Service: Dec 02, 2016 at 19:39 Chief Complaint: Recent Inferior Myocardial Infarction Primary Care Physician: Pradeep Mayer M.D. 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 states that she needs him to get therapy and get stronger prior to returning home. There are no other symptoms to note today; denies chest pain, shortness of breath, denies palpitations, denies edema, denies fevers/chills, nausea/vomiting/diarrhea. 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 Status: Resolved (9) Maxillary sinus cancer Status: Resolved Surgical Problems: (1) History of inguinal hernia repair Status: Resolved (2) History of sinus surgery Permanent Comment: removal of R eye as well as R ethmoid sinus Status: Resolved Family History FH: heart disease FHx: cancer Hypertension Social History Smoking Status: Former Smoker Drug Use: none Marital Status: Housing status: lives with family Occupational Status: retired Multi-Drug Resistant Organisms History of MDRO: No Allergies Coded Allergies: Sulfamethoxazole w/Trimethoprim (Verified Allergy, Unknown, Hives, 11/28/16 ) Home Medications Scheduled Ascorbic Acid (Vitamin C), 1,000 MG PO DAILY Aspirin (Aspirin Ec), 81 MG PO DAILY Atorvastatin (Atorvastatin Calcium), 40 MG PO DAILY Cholecalciferol (Vitamin D3), 1,000 UNIT PO DAILY Cyanocobalamin (Vitamin B-12), 1,000 MCG PO DAILY Denosumab (Xgeva), 120 MCG INJ MONTHLY Folic Acid (Folvite), 1 MG PO DAILY Furosemide (Furosemide), 40 MG PO BID Metoprolol Succinate (Metoprolol Succinate ER), 25 MG PO DAILY Multiple Vitamin (Multi Vitamin Daily), 1 TAB PO DAILY [place]-3 Fatty Acids (Fish Oil 1200 mg), 1 CAP PO DAILY Omeprazole (Prilosec), 20 MG PO DAILY Prednisone (Prednisone), 50 MG PO DAILY Scheduled PRN Nitroglycerin (Nitrostat), 0.4 MG UT UD PRN for Chest Pain Review of Systems Constitutional: + weakness, + fatigue, No fever, No chills Respiratory: No cough, No sputum, No wheezing, No shortness of breath, No dyspnea on exertion, No dyspnea at rest Cardiovascular: No chest pain, No edema, No palpitations Abdomen: No pain, No nausea, No vomiting, No diarrhea, No constipation, No GI bleeding Musculoskeletal: No joint pain, No muscle pain Genitourinary - Male: No hematuria (recent issues with hematuria, now resolved) , No dysuria, No urinary frequency Neurologic: + weakness, + balance problems, No numbness/tingling, No vertigo Psychiatric: No depression symptoms, No anxiety, No insomnia Endocrine: + fatigue Hematologic / Lymphatic: No abnormal bleeding/bruising Integumentary: No rash Allergic / Immunologic: No environmental allergies, No seasonal allergies Physical Exam Vital Signs Date Time Temp Pulse Resp B/P (MAP) Pulse Ox O2 Delivery O2 Flow Rate FiO2 12/02/16 19:00 80 18 107/72 96 12/02/16 18:16 97 Room Air 12/02/16 17:23 89 24 128/69 12/02/16 17:01 77 18 111/74 97 12/02/16 16:31 79 24 126/71 97 12/02/16 16:29 120/71 12/02/16 16:03 98 12/02/16 16:03 72 14 95 12/02/16 15:37 36.6 67 20 95/67 95 Room Air General Appearance: no apparent distress Eyes: + pertinent finding (bandage over R eye) ENT: hearing grossly normal Neck: supple Respiratory/Chest: chest non-tender, lungs clear, normal breath sounds, no respiratory distress, no accessory muscle use Cardiovascular: regular rate, rhythm, no edema, no murmur Abdomen/GI: normal bowel sounds, non tender, soft Extremities/Musculoskelatal: normal capillary refill, no pedal edema Neurologic/Psych: no motor/sensory deficits, alert, normal mood/affect Skin: normal color Lymphatic: no adenopathy Diagnostics Laboratory Results Results Past 24 Hours Test 12/02/16 16:04 12/02/16 16:13 12/02/16 16:30 Range/Units White Blood Count 8.31 4.8-10.8 K/uL Red Blood Count 3.44 4.7-6.1 M/uL Hemoglobin 11.6 14.0-18.0 g/dL Hematocrit 32.1 42-52 % Mean Corpuscular Volume 93.3 80-100 fL Mean Corpuscular Hemoglobin 33.7 25-34 pg Mean Corpuscular Hemoglobin Concent 36.1 32-36 g/dl Platelet Count 100 130-400 K/uL Mean Platelet Volume 10.6 7.4-10.4 fL Neutrophils (%) (Auto) 87.0 % Lymphocytes (%) (Auto) 8.9 % Monocytes (%) (Auto) 2.6 % Eosinophils (%) (Auto) 0.2 % Basophils (%) (Auto) 0.0 % Neutrophils # (Auto) 7.22 1.4-6.5 K/uL Lymphocytes # (Auto) 0.74 1.2-3.4 K/uL Monocytes # (Auto) 0.22 0.11-0.59 K/uL Eosinophils # (Auto) 0.02 0-0.5 K/uL Basophils # (Auto) 0.00 0-0.2 K/uL RDW Standard Deviation 54.5 36.4-46.3 fL RDW Coefficient of Variation 16.0 11.5-14.5 % Immature Granulocyte % (Auto) 1.3 % Immature Granulocyte # (Auto) 0.11 0.00-0.02 K/uL Prothrombin Time 11.4 9.0-12.0 SECONDS Prothromb Time International Ratio 1.1 0.9-1.1 Activated Partial Thromboplast Time 27.4 21.0-31.0 SECONDS Partial Thromboplastin Ratio 1.1 Sodium Level 135 136-145 mmol/L Potassium Level 4.3 3.5-5.1 mmol/L Chloride Level 100 98-107 mmol/L Carbon Dioxide Level 26 21-32 mmol/L Anion Gap 9.0 16.0 16-25 mmol/L Blood Urea Nitrogen 68 7-18 mg/dl Creatinine 2.00 0.60-1.40 mg/dl Est Creatinine Clear Calc Drug Dose 38.7 ml/min Estimated GFR () 37.5 Estimated GFR (Non- 32.4 BUN/Creatinine Ratio 33.9 10-20 Random Glucose 140 70-99 mg/dl Calcium Level 10.3 8.5-10.1 mg/dl Magnesium Level 1.9 1.8-2.4 mg/dl Total Bilirubin 0.7 0.2-1 mg/dl Direct Bilirubin 0.2 0-0.2 mg/dl Aspartate Amino Transf (AST/SGOT) 25 15-37 U/L Alanine Aminotransferase (ALT/SGPT) 9 12-78 U/L Alkaline Phosphatase 51 45-117 U/L Total Creatine Kinase 29 39-308 U/L Creatine Kinase MB 6.7 0.5-3.6 ng/ml Creatine Kinase MB Ratio 23.1 0-3.0 Troponin I 0.203 0-0.045 ng/ml Total Protein 5.3 6.4-8.2 gm/dl Albumin 2.6 3.4-5.0 gm/dl Lipase 263 73-393 U/L Bedside Hemoglobin 10.2 14.0-18.0 g/dl Bedside Hematocrit 30 42-52 % Bedside Sodium 131 135-144 mEq/L Bedside Potassium 4.2 3.3-5.0 mEq/L Bedside Chloride 96 101-112 mEq/L Bedside Total CO2 24 24-31 mEq/l Bedside Blood Urea Nitrogen 69 7-18 mg/dl Bedside Creatinine 1.9 0.6-1.3 mg/dl Bedside Glucose (other) 144 70-99 mg/dl Bedside Ionized Calcium (Aisha) 1.39 1.12-1.32 mmol/l Urine Color YELLOW Urine Appearance CLEAR CLEAR Urine pH 5.0 4.5-7.5 Urine Specific [place] 1.015 1.000-1.030 Urine Protein NEG NEG Urine Glucose (UA) NEG NEG Urine Ketones NEG NEG Urine Occult Blood NEG NEG Urine Nitrite NEG NEG Urine Bilirubin NEG NEG Urine Urobilinogen NEG NEG Urine Leukocyte Esterase NEG NEG Urine WBC (Auto) 0 0-5 /hpf Urine RBC (Auto) 0-4 0-4 /hpf Urine Hyaline Casts (Auto) 1-5 0-5 /lpf Urine Epithelial Cells (Auto) 10-20 0-5 /lpf Urine Bacteria (Auto) NEG NEG Urine Pathogenic Casts 0 /lpf Diagnostic Radiology CHEST ONE VIEW PORTABLE CLINICAL HISTORY: EVALUATE ALTERED MENTAL STATUS/WEAKNESS COMPARISON STUDY: 10/21/2016 FINDINGS: Moderate stable cardiomegaly. Persistent bibasilar parenchymal infiltrative change. Mid and upper lungs are considered clear. Pulmonary vascular structures prominent. IMPRESSION: Mild bibasilar parenchymal infiltrates similar compared to the prior study. Pulmonary vascular congestion. Moderate stable cardiomegaly. 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 of anemia and bleeding Elevated Troponin Recent NSTEMI presented here in September with NSTEMI transferred to [facility] and managed there was discharged on aspirin, statin, b-christina troponin seems to be stable from previous, will trend enzymes, monitor in tele cardiology consulted routinely - patient was to see Dr. Fay on 12/07 CKD stage 3-4 hx. of renal cell carcinoma s/p nephrectomy creatinine is around baseline of 1.9-2.0 given IVFs in the ER; hold off on further hydration due to systolic CHF Autoimmune Hemolytic Anemia patient follows with hematology; was just seen by hematology on November 28 prednisone tapered down to 50mg daily, which we will continue monitor H/H Dilated Cardiomyopathy Systolic CHF currently euvolemic restart Lasix at home dose in AM DVT ppx SCDs: recent retroperitoneal hemorrhage at [facility] FULL CODE Advanced Directives Existing Living Will: No Existing Power of Bicycle Mechanic: No VTE Prophylaxis VTE Risk Assessment Done? Y/N: Yes Risk Level: High
[2016-12-02] MEDS: FUROSEMIDE 40 MG TAB PO SCH (21:10)
[2016-12-02 23:41] VITALS: BP 111/66; PULSE 61; TEMP 36.5; O2SAT 97
[2016-12-03 00:50] LABS: CKMB/CK RATIO 23.1 (0-3.0)
[2016-12-03 04:00] VITALS: BP 106/67; PULSE 87; TEMP 36.4; O2SAT 97
[2016-12-03] MEDS: PANTOprazole SOD 40 MG TAB PO SCH (07:32)
[2016-12-03] MEDS: ATORVASTATIN 40 MG TAB PO SCH (07:32)
[2016-12-03] MEDS: CYANOCOBALAMIN 500 MCG TAB (VIT B-12) PO SCH (07:32)
[2016-12-03] MEDS: METOPROLOL SUCC 25MG EXT REL TAB PO SCH (07:32)
[2016-12-03] MEDS: MULTIVITAMIN TAB PO SCH (07:32)
[2016-12-03] MEDS: FUROSEMIDE 40 MG TAB PO SCH (07:33)
[2016-12-03 07:44] LABS: HEMATOCRIT 34.6 % (42-52); MEAN CORPUSCULAR HEMOGLOBIN 32.3 pg (25-34); MEAN CORPUSCULAR HGB CONC 34.4 g/dl (32-36); RED BLOOD COUNT 3.68 M/uL (4.7-6.1); WHITE BLOOD COUNT 6.99 K/uL (4.8-10.8)
[2016-12-03 08:00] VITALS: BP 91/59; PULSE 116; O2SAT 94
[2016-12-03 08:03] LABS: MEAN PLATELET VOLUME 11.3 fL (7.4-10.4); PLATELET COUNT 94 K/uL (130-400)
[2016-12-03 08:20] LABS: BUN/CREATININE RATIO 33.6 (10-20); CALCIUM 9.4 mg/dl (8.5-10.1); CREATININE 1.7 mg/dl (0.60-1.40); POTASSIUM 3.6 mmol/L (3.5-5.1)
[2016-12-03 08:29] LABS: THYROID STIMULATING HORMONE 0.644 uIu/ml (0.300-4.500)
[2016-12-03 09:03] LABS: CKMB/CK RATIO 19.3 (0-3.0)
--- NOTE | 2016-12-03 09:31 | ECHOCARDIOGRAM REPORT ---
*NOTICE TO RECEIVING LIBERTARIAN AGENCY This information is strictly Confidential and protected under [place] law. [place] law prohibits you from making any further disclosure of this information unless further disclosure is expressly permitted by the written consent of the person to whom it pertains or is authorized by law. A general authorization for the release of medical or other information is not sufficient for this purpose. Hospital accepts no responsibility if the information is made available to any other person, INCLUDING THE PATIENT. Interpretation Summary * Name: ELSY DAS JR Study Date: 12/03/2016 06:41 AM BP: 106/67 mmHg * Patient Location: C.2T\S\E217\S\1 HR: 93 * : 1945 (M/d/yyyy) Gender: Male Height: 74 in * Age: 71 yrs Ethnicity: CA Weight: 180 lb * Ordering Physician: Rory Collins * Referring Physician: Self, Referred * Performed By: Micah Bauer RCS * * Reason For Study: Recent ME * BSA: 2.1 m2 * The study was technically adequate. * There is no comparison study available. * -- Conclusions -- * Ejection Fraction = 60-65%. * There is mild concentric left ventricular hypertrophy. * Mild hypokinesis of the basal inferior wall. * Otherwise, normal wall motion. * Grade I diastolic dysfunction, (abnormal relaxation pattern). * No significnat valvular pathology. Procedure Details * A complete two-dimensional transthoracic echocardiogram was performed (2D, M-mode, Doppler and color flow Doppler). Left Ventricle * The left ventricle is normal in size. * There is no thrombus. * There is mild concentric left ventricular hypertrophy. * Ejection Fraction = 60-65%. * Left ventricular systolic function is normal. * Mild hypokinesis of the basal inferior wall. Otherwise, normal wall motion. Right Ventricle * The right ventricle is normal size. * The right ventricular systolic function is normal as assessed by tricuspid annular plane systolic excursion (TAPSE) (normal >1.5 cm). Atria * The left atrial size is normal. * Right atrial size is normal. * There is no evidence of atrial septal defect, but resolution does not allow assessment for a patent foramen ovale. Mitral Valve * The mitral valve is normal. * There is no mitral valve stenosis. * Significant mitral regurgitation is absent. Tricuspid Valve * The tricuspid valve is normal. * There is no tricuspid stenosis. * Significant tricuspid regurgitation is absent. Aortic Valve * The aortic valve is not well visualized. * Aortic stenosis is absent. * There is no significant aortic regurgitation. Pulmonic Valve * The pulmonary valve is not well seen, but the Doppler examination is normal without significant regurgitation or stenosis. Great Vessels * The aortic root is normal size. Pericardium/Pleural * There is no pericardial effusion. Great Vessels * Normal inferior vena cava diameter and respiratory variation suggests normal central venous pressure. Left Ventricular Diastolic Function * Grade I diastolic dysfunction, (abnormal relaxation pattern). MMode 2D Measurements and Calculations IVSd 1.2 cm LVIDd 4.4 cm LVIDs 2.9 cm LVPWd 1.2 cm IVS/LVPW 0.99 FS 32.3 % EDV(Teich) 85.5 ml ESV(Teich) 33.5 ml EF(Teich) 60.8 % EDV(cubed) 82.5 ml ESV(cubed) 25.6 ml EF(cubed) 69.0 % LV mass(C)d 199.0 grams LV mass(C)dI 95.7 grams/m\S\2 SV(Teich) 52.0 ml SI(Teich) 25.0 ml/m\S\2 SV(cubed) 56.9 ml SI(cubed) 27.4 ml/m\S\2 Ao root diam 3.5 cm Ao root area 9.7 cm\S\2 LVOT diam 2.2 cm LVOT area 3.8 cm\S\2 LVAd ap4 37.8 cm\S\2 LVLd ap4 11.3 cm EDV(MOD-sp4) 104.3 ml EDV(sp4-el) 107.9 ml LVAs ap4 14.2 cm\S\2 LVLs ap4 8.7 cm ESV(MOD-sp4) 19.8 ml ESV(sp4-el) 19.6 ml EF(MOD-sp4) 81.0 % EF(sp4-el) 81.8 % LVAd ap2 29.5 cm\S\2 LVLd ap2 9.9 cm EDV(MOD-sp2) 70.4 ml EDV(sp2-el) 74.4 ml LVAs ap2 17.8 cm\S\2 LVLs ap2 7.8 cm ESV(MOD-sp2) 33.0 ml ESV(sp2-el) 34.5 ml EF(MOD-sp2) 53.1 % EF(sp2-el) 53.6 % LVLd %diff -13.11 % EDV(MOD-bp) 90.9 ml LVLs %diff -11.77 % ESV(MOD-bp) 26.7 ml EF(MOD-bp) 70.7 % SV(MOD-sp4) 84.5 ml SI(MOD-sp4) 40.7 ml/m\S\2 SV(MOD-sp2) 37.4 ml SI(MOD-sp2) 18.0 ml/m\S\2 SV(MOD-bp) 64.3 ml SI(MOD-bp) 30.9 ml/m\S\2 SV(sp4-el) 88.3 ml SI(sp4-el) 42.5 ml/m\S\2 SV(sp2-el) 39.9 ml SI(sp2-el) 19.2 ml/m\S\2 Doppler Measurements and Calculations MV E max celina 43.7 cm/sec MV A max celina 93.6 cm/sec MV E/A 0.47 MV dec time 0.10 sec Ao V2 max 190.0 cm/sec Ao max PG 14.4 mmHg Ao max PG (full) -0.01 mmHg AGATA(V,A) 3.8 cm\S\2 AGATA(V,D) 3.8 cm\S\2 LV V1 max PG 14.5 mmHg LV V1 max 190.1 cm/sec TR max celina 158.8 cm/sec
[2016-12-03] MEDS: ASPIRIN 81 MG ECTAB PO SCH (10:07)
[2016-12-03] MEDS ORDERED: SODIUM CHLORIDE 0.9% 250ML 250 ML IV SCH ×2 (10:45→12:00)
--- NOTE | 2016-12-03 11:03 | Cardiology Consultation ---
Cardiology Consultation Date of Service Dec 03, 2016. (Yari Kirk, CHARISSA) Cardiology Consultation Requesting Physician: Dr. Collins Attending Park Interpreter: Dr. Mahoney HISTORY OF PRESENT ILLNESS: Curry Ashton is a 70-year-old male with a complex history including admission in September 2016 for SOB, found to anemic with Hbg of 6.9 and thrombocytopenia. Transferred to [facility] [place] [place]. 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 He was also found to have EKG changes with lateral T wave inversions during hospital stay with elevated troponin, peaking at 5.4 with and echo demonstrated new anteroseptal, apical, inferoseptal and inferior wall motion abnormality with an ejection fraction 25%-29% range. Medical management recommended given anemia/thrombocytopenia and CKD. Unfortunately after discharge from [facility] [place] [place], he was admitted several days later to [facility] with right arm pain, found to have DVT and started on anticoagulation therapy despite risks with hemolytic anemia. Unfortunately developed acute drop in Hbg, requiring transfusion which was not able to be done at [place] and transferred back to [facility] [place] [place]. Diagnosed with retroperitoneal hemorrhage and Coumadin stopped. Repeat Scan of right arm showed resolution of DVT. He was also found to have MSSA bacteremia. Repeat echo and JOHN completed at [facility] [place] [place] with LVEF 35% in October 2016 without evidence of endocarditis. Patient was brought to [facility] yesterday from home, by his , for weakness, gait instability and lack of appetite. Found to have mild worsening renal function, hyponatremia, chest xray with possible infiltrate. He denied chest pain or SOB. No fever, cough, chills. No orthopnea, PND or edema. No dizziness, syncope or near syncope. no sense of palpitations. At time of consult, patient feeling ok. Primary concern is "pain in roof of his mouth". Denies other symptoms currently. Sitting in chair. at bedside. HR mildly tachycardic on exam. Telemetry reviewed. Sinus tach 100-120. BP 90's. Review of Systems: SEE HPI for pertinent positives. All other 10 point review of systems is negative. PAST MEDICAL HISTORY: 1. 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 2. 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 3. Abdominal aortic aneurysm. 4. History of DVT with inferior vena cava filter placed due to his history of subdural hemorrhage. 5. History of subdural hemorrhage 1993 with residual left-sided weakness. 6. Hyperlipidemia. PAST SURGICAL HISTORY: 1. History of inguinal hernia repair. 2. History of sinus surgery and right eye enucleation. 3. History of laparoscopic radical nephrectomy on 08/23/2015 at [facility]. 4. History of evacuation of a subdural hematoma in 1993. FAMILY HISTORY: 1. Heart disease, details unknown. 2. Cancer, details unknown. 3. Hypertension. SOCIAL HISTORY: The patient is a nonsmoker. He is and lives with his family. He is retired. ALLERGIES: SULFAMETHOXAZOLE/TMP. Reported Home Medications Medications Dose Route/Sig Max Daily Dose Days Date Category Dose Instructions Metoprolol Succinate ER (Metoprolol Succinate) 25 Mg Tabcr 25 Mg PO DAILY 11/28/16 Reported Atorvastatin Calcium (Atorvastatin) 40 Mg Tab 40 Mg PO DAILY 11/28/16 Reported Furosemide 40 Mg Tab 40 Mg PO BID 11/28/16 Reported Prednisone 20 Mg Tab 50 Mg PO DAILY 10/16/16 Reported Vitamin D3 (Cholecalciferol) 1,000 Unit Tab 1,000 Unit PO DAILY 10/16/16 Reported Vitamin B-12 (Cyanocobalamin) 1,000 Mcg Tab 1,000 Mcg PO DAILY 10/16/16 Reported Prilosec (Omeprazole) 20 Mg Capcr 20 Mg PO DAILY 10/16/16 Reported Fish Oil 1200 mg ([place]-3 Fatty Acids) 1 Cap Cap 1 Cap PO DAILY 10/16/16 Reported Nitrostat (Nitroglycerin) 0.4 Mg Tab 0.4 Mg UT UD PRN 10/16/16 Reported Folvite (Folic Acid) 1 Mg Tab 1 Mg PO DAILY 10/16/16 Reported Xgeva (Denosumab) 120 Mg/1.7 Ml Inj 120 Mcg INJ MONTHLY 10/16/16 Reported INJECT 120MCG(1.7ML) UNDER THE SKIN MONTHLY Vitamin C (Ascorbic Acid) 1,000 Mg Tab 1,000 Mg PO DAILY 07/01/15 Reported Multi Vitamin Daily (Multiple Vitamin) 1 Tab Tab 1 Tab PO DAILY 07/01/15 Reported Aspirin Ec (Aspirin) 81 Mg Tab 81 Mg PO DAILY 07/01/15 Reported PHYSICAL EXAMINATION: Last 8 Hrs Date Time Temp Pulse Resp B/P (MAP) Pulse Ox O2 Delivery O2 Flow Rate FiO2 12/03/16 08:00 Room Air 12/03/16 04:00 Room Air 12/03/16 04:00 36.4 87 18 106/67 (80) 97 Room Air GENERAL APPEARANCE: NAD. NECK: No bruits. LUNGS: + course breath sounds b/l. CARDIOVASCULAR: Regular rate and rhythm. No murmurs. ABDOMEN: Soft and nontender. EXTREMITIES: No edema. DATA: Echo completed today 12/03/16: * Ejection Fraction = 60-65%. * There is mild concentric left ventricular hypertrophy. * Mild hypokinesis of the basal inferior wall. * Otherwise, normal wall motion. * Grade I diastolic dysfunction, (abnormal relaxation pattern). * No significant valvular pathology Chest xray on admission: possible infiltrate with mild vasc congestion. Telemetry reviewed - NSR and Sinus tach. No concerning arrhythmias. EKG on admission: Sinus with PAC's. LVH Prior Echocardiogram at [facility] [place] [place] in October 2016: The examination is adequate to evaluate the referral indication. There are no obvious valvular vegetations. However, endocarditis cannot be excluded by this imaging technique. The left ventricular systolic function is moderately reduced. Qualitative LV ejection Fraction = 35%. There is a large sized apical, septal, anteroseptal, anterior, inferior, and lateral wall motion abnormality with hypokinesis to akinesis of the segments. The right ventricular systolic function is normal as assessed by tricuspid annular plane systolic excursion (TAPSE) (normal >1.7 cm). Labs: Last 8 Hrs Date Time Temp Pulse Resp B/P (MAP) Pulse Ox O2 Delivery O2 Flow Rate FiO2 12/03/16 08:00 116 18 91/59 (70) 94 Room Air 12/03/16 08:00 Room Air 12/03/16 04:00 Room Air 12/03/16 04:00 36.4 87 18 106/67 (80) 97 Room Air FINAL IMPRESSION: A 70-year-old male. 1. Weakness, multifactorial with multiple readmissions due to hemolytic anemia/ DVT right arm, retroperitoneal hemorrhage. Would benefit from rehab. 2. Presumed ischemic Cardiomyopathy, resolved per repeat echo earlier today. LVEF now 60-65% 3. Sinus tachycardia - appears dry. Continue metoprolol. Gentle IV fluids with bolus. Reduce furosemide to 40 mg daily. 4. acute on chronic kidney disease with elevated creatinine 5. Elevated troponin on admission 6. history of hemolytic anemia - on high dose steroids. Hbg stable 7. Chronic kidney disease with solitary kidney with previous nephrectomy. RECOMMENDATIONS: Gentle hydration this AM. Reduce furosemide to 40 mg daily. Now that LVEF has normalized, likely does not require high dose diuretic therapy. Has poor PO intake at home as well. Continue metoprolol. If he remains hypotensive with tachycardia - consider PE work up/CT scan vs VQ scan. Has had extensive hospitalizations. Elevated troponin likely due to acute renal insufficiency. No evidence of ACS. Case discussed with Dr. Mahoney. Will follow. (Yari Kirk PA-C) Cardiology Attending Physician: Patient seen and examined at the bedside. is present as well. Patient denies chest pain or unusual shortness of breath. States he has been taking Lasix twice daily for more than 2 months. Repeat echocardiogram demonstrates normalization of LV systolic function with mild basal inferior hypokinesis. Patient denies chest discomfort or unusual shortness of breath. He was evaluated by physical therapy. There planning inpatient rehabilitation at the time of discharge. Patient noted to have acute renal insufficiency with markedly elevated BUN on admission. No dysrhythmias on telemetry. Complains of fatigue and weakness. Patient offers no other complaints at this time. PE: VSS. Gen: NAD, chronically ill. Heart: Regular normal S1 and S2 no murmur, rub, gallop appreciated. Lungs: Diminished breath sounds at the right base. No rales or wheezes appreciated. Ext: No edema. Left lower extremity stasis changes noted. Mild excoriation of his left knee. A/P: Agree with above PAC history, physical exam, assessment and plan. Patient admitted with fatigue and weakness. Lab studies demonstrate acute renal insufficiency I suspect secondary to diuretic therapy. He appears volume depleted. Repeat resting 2-D transthoracic echo demonstrates normalization of LV systolic function. Recommend holding diuretic therapy. Repeat basic metabolic panel in the a.m. Encourage oral hydration. Replace electrolytes as needed. Will continue to follow during hospitalization. Thank you for allowing me to take part in the care of your patient. Darin Mahoney DO, [facility] (James Mahoney DO)
[2016-12-03 11:36] VITALS: BP 96/59; PULSE 111; TEMP 37.6; O2SAT 93
[2016-12-03] MEDS ORDERED: MAGIC SWIZZLE PO (13:14)
[2016-12-03] MEDS ORDERED: MOMLX PO (13:14)
[2016-12-03] MEDS ORDERED: MRLP17X PO (13:14)
[2016-12-03] MEDS ORDERED: LSX40 PO (13:14)
[2016-12-03] MEDS ORDERED: MLXESC PO (13:14)
[2016-12-03] MEDS ORDERED: ORJ MT (13:14)
[2016-12-03] MEDS ORDERED: BENZOCAINE 20% (ORAJEL) 11.9 GM TUBE MT PRN (13:15)
--- NOTE | 2016-12-03 13:16 | Discharge Instructions ---
Discharge Instructions Date of Service Dec 03, 2016. Admission Reason for Admission: Recent Inferior Myocardial Infarction Discharge Discharge Diagnosis / Problem: GENERALIZED WEAKNESS /CORONARY ARTERY DISEASE Discharge Goals Goal(s): Decrease discomfort, Improve function, Increase independence, Improve disease control, Diagnostic testing Activity Recommendations Activity Level: Assistance Required Therapies: Physical Therapy, Occupational Therapy Shower/Bathe: no limitations . Additional Information Patient informed of condition: Yes Advance Directives: No DNR: No Level of Care: Skilled Communicable Disease: No Prognosis: Stable Douglas Catheter: No Instructions / Follow-Up Instructions / Follow-Up FOLLOW UP WITH FAMILY PHYSICIAN AFTER DISCHARGE [facility] Current Hospital Diet Patient's current hospital diet: AHA Diet (Heart Healthy) Discharge Diet Recommended Diet: AHA Diet (Heart Healthy) Diet Texture: Mechanical Soft (ground) Pending Studies Studies pending at discharge: no Laboratory Results Lipid Panel Test 10/17/16 06:02 Range/Units Triglycerides Level 143 0-150 mg/dl Cholesterol Level 133 0-200 mg/dl HDL Cholesterol 53 mg/dl Cholesterol/HDL Ratio 2.5 LDL Cholesterol, Calculated 51 mg/dl Medical Emergencies . Who to Call and When: Medical Emergencies: If at any time you feel your situation is an emergency, please call 911 immediately. . Non-Emergent Contact Non-Emergency issues call your: Primary Care Provider . . "Provider Documentation" section prepared by Lalita Krueger. . Core Measure Problem Core Measures: None
--- NOTE | 2016-12-03 13:35 | Progress Note ---
Internal Med Progress Note Date of Service: Dec 03, 2016. Provider Documentation: SUBJECTIVE: no complain of chest pain or SOB feels weak over all complains of soreness on roof of mouth -started while in [place] no fever or chills OBJECTIVE: Vital Signs-as noted below Exam: General-no sign of distress Eyes-s/p enucleation of rt eye -patch present ENT-does not have any teeth , does not use denture, whitish plaque on ant part of roof of mouth , near to upper gum , tender to touch , no bleeding noted Neck-no JVD noted Lungs-faint crackles on rt lower base , no wheeze Heart-regular S1/S2 Abdomen-soft, non tender Extremities-no lower ext edema noted Neuro-AAo x3, no focal deficit Lab data as noted below. 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, recent NSTEMI in September 2016, dilated cardiomyopathy on Lasix , recent DVT of upper extremity, recent retroperitoneal hemorrhage. , presented with generalize weakness Generalized Weakness due to deconditioning with multiple recent hospital stay , medical co morbidities possibly related to long-stay at [place] last month no evidence of active infection blood cultures ordered given recent hx of MSSA bacteremia no evidence of cardiac compromise -no angina , no evidence of decompensated CHF Hb stable 11. 9 PT/OT eval requested discharge planning - will likely need placement referral made for [facility] SOB /CHAUDHARY : Possible due to deconditioning no angina or cardiac compromise repeat ECHO : shows improvement of EF 60-65 % no hypoxia lower ext Doppler ordered to R/o DVT cont PT/OT Elevated Troponin Recent NSTEMI presented here in September with NSTEMI transferred to [place] and managed there was discharged on aspirin, statin, b-christina troponin seems to be stable from previous, Echo shows improved EF 60-65 % -improved from prior scan , mild hypokinesis on inf basal wall ( noted prior ) no evidence of ACS appreciate cardiology eval cont out pt routine cardiac meds SORENESS OF MOUTH : has small spot of soreness on roof of mouth anteriorly pt mentions of having solid food casing injury ( pt is does not have teeth /denture ) diet changed to soft consistency oral jel /Magic swizzle ordered pt is asked to avoid hard solid food diet updated on D/c instruction to rehab as well MIKE on CKD stage 3-4 possible due to dehydration hx. of renal cell carcinoma s/p nephrectomy creatinine is around baseline of 1.9-2.0 given IVFs in the ER; Cr improved 1.7 today Lasix will be on hold ( appreciate input form cardiology) as pt's EF improved D/c Fluid restriction Autoimmune Hemolytic Anemia patient follows with hematology; was just seen by hematology on November 28 prednisone tapered down to 50mg daily, which we will continue HB stable 11.9 Dilated Cardiomyopathy Systolic CHF EF improved to 60-65 % today pt appears to be clinically alex Lasix on hold /no need for fluid restriction Cardiology following diuretic dose will be adjusted by Cardiology tomorrow prior to transfer to rehab DVT ppx SCDs: recent retroperitoneal hemorrhage at [place] DISPOSITION presents with generalized weakness PT/OTe eval requested pt will benefit with rehab referral made to [facility] can be transferred to [facility] in next 24-48 hrs if remains stable medically present at bedside -updated Vital Signs: Date Time Temp Pulse Resp B/P (MAP) Pulse Ox O2 Delivery O2 Flow Rate FiO2 12/03/16 12:00 Room Air 12/03/16 11:36 37.6 111 18 96/59 (71) 93 Room Air 12/03/16 08:00 116 18 91/59 (70) 94 Room Air 12/03/16 08:00 Room Air 12/03/16 04:00 Room Air 12/03/16 04:00 36.4 87 18 106/67 (80) 97 Room Air 12/03/16 00:00 Room Air 12/02/16 23:41 36.5 61 18 111/66 (81) 97 Room Air 12/02/16 20:00 Room Air 12/02/16 19:00 80 18 107/72 96 12/02/16 18:16 97 Room Air 12/02/16 17:23 89 24 128/69 12/02/16 17:01 77 18 111/74 97 12/02/16 16:31 79 24 126/71 97 12/02/16 16:29 120/71 12/02/16 16:03 98 12/02/16 16:03 72 14 95 12/02/16 15:37 36.6 67 20 95/67 95 Room Air Lab Results: Results Past 24 Hours Test 12/02/16 16:04 12/02/16 16:13 12/02/16 16:30 12/03/16 00:19 Range/Units White Blood Count 8.31 4.8-10.8 K/uL Red Blood Count 3.44 4.7-6.1 M/uL Hemoglobin 11.6 14.0-18.0 g/dL Hematocrit 32.1 42-52 % Mean Corpuscular Volume 93.3 80-100 fL Mean Corpuscular Hemoglobin 33.7 25-34 pg Mean Corpuscular Hemoglobin Concent 36.1 32-36 g/dl Platelet Count 100 130-400 K/uL Mean Platelet Volume 10.6 7.4-10.4 fL Neutrophils (%) (Auto) 87.0 % Lymphocytes (%) (Auto) 8.9 % Monocytes (%) (Auto) 2.6 % Eosinophils (%) (Auto) 0.2 % Basophils (%) (Auto) 0.0 % Neutrophils # (Auto) 7.22 1.4-6.5 K/uL Lymphocytes # (Auto) 0.74 1.2-3.4 K/uL Monocytes # (Auto) 0.22 0.11-0.59 K/uL Eosinophils # (Auto) 0.02 0-0.5 K/uL Basophils # (Auto) 0.00 0-0.2 K/uL RDW Standard Deviation 54.5 36.4-46.3 fL RDW Coefficient of Variation 16.0 11.5-14.5 % Immature Granulocyte % (Auto) 1.3 % Immature Granulocyte # (Auto) 0.11 0.00-0.02 K/uL Prothrombin Time 11.4 9.0-12.0 SECONDS Prothromb Time International Ratio 1.1 0.9-1.1 Activated Partial Thromboplast Time 27.4 21.0-31.0 SECONDS Partial Thromboplastin Ratio 1.1 Sodium Level 135 136-145 mmol/L Potassium Level 4.3 3.5-5.1 mmol/L Chloride Level 100 98-107 mmol/L Carbon Dioxide Level 26 21-32 mmol/L Anion Gap 9.0 16.0 16-25 mmol/L Blood Urea Nitrogen 68 7-18 mg/dl Creatinine 2.00 0.60-1.40 mg/dl Est Creatinine Clear Calc Drug Dose 38.7 ml/min Estimated GFR () 37.5 Estimated GFR (Non- 32.4 BUN/Creatinine Ratio 33.9 10-20 Random Glucose 140 70-99 mg/dl Calcium Level 10.3 8.5-10.1 mg/dl Magnesium Level 1.9 1.8-2.4 mg/dl Total Bilirubin 0.7 0.2-1 mg/dl Direct Bilirubin 0.2 0-0.2 mg/dl Aspartate Amino Transf (AST/SGOT) 25 15-37 U/L Alanine Aminotransferase (ALT/SGPT) 9 12-78 U/L Alkaline Phosphatase 51 45-117 U/L Total Creatine Kinase 29 32 39-308 U/L Creatine Kinase MB 6.7 7.4 0.5-3.6 ng/ml Creatine Kinase MB Ratio 23.1 23.1 0-3.0 Troponin I 0.203 0.221 0-0.045 ng/ml Total Protein 5.3 6.4-8.2 gm/dl Albumin 2.6 3.4-5.0 gm/dl Lipase 263 73-393 U/L Bedside Hemoglobin 10.2 14.0-18.0 g/dl Bedside Hematocrit 30 42-52 % Bedside Sodium 131 135-144 mEq/L Bedside Potassium 4.2 3.3-5.0 mEq/L Bedside Chloride 96 101-112 mEq/L Bedside Total CO2 24 24-31 mEq/l Bedside Blood Urea Nitrogen 69 7-18 mg/dl Bedside Creatinine 1.9 0.6-1.3 mg/dl Bedside Glucose (other) 144 70-99 mg/dl Bedside Ionized Calcium (Aisha) 1.39 1.12-1.32 mmol/l Urine Color YELLOW Urine Appearance CLEAR CLEAR Urine pH 5.0 4.5-7.5 Urine Specific [place] 1.015 1.000-1.030 Urine Protein NEG NEG Urine Glucose (UA) NEG NEG Urine Ketones NEG NEG Urine Occult Blood NEG NEG Urine Nitrite NEG NEG Urine Bilirubin NEG NEG Urine Urobilinogen NEG NEG Urine Leukocyte Esterase NEG NEG Urine WBC (Auto) 0 0-5 /hpf Urine RBC (Auto) 0-4 0-4 /hpf Urine Hyaline Casts (Auto) 1-5 0-5 /lpf Urine Epithelial Cells (Auto) 10-20 0-5 /lpf Urine Bacteria (Auto) NEG NEG Urine Pathogenic Casts 0 /lpf Test 12/03/16 07:13 12/03/16 08:15 Range/Units White Blood Count 6.99 4.8-10.8 K/uL Red Blood Count 3.68 4.7-6.1 M/uL Hemoglobin 11.9 14.0-18.0 g/dL Hematocrit 34.6 42-52 % Mean Corpuscular Volume 94.0 80-100 fL Mean Corpuscular Hemoglobin 32.3 25-34 pg Mean Corpuscular Hemoglobin Concent 34.4 32-36 g/dl RDW Standard Deviation 55.0 36.4-46.3 fL RDW Coefficient of Variation 15.9 11.5-14.5 % Platelet Count 94 130-400 K/uL Mean Platelet Volume 11.3 7.4-10.4 fL Sodium Level 137 136-145 mmol/L Potassium Level 3.6 3.5-5.1 mmol/L Chloride Level 99 98-107 mmol/L Carbon Dioxide Level 31 21-32 mmol/L Anion Gap 7.0 3-11 mmol/L Blood Urea Nitrogen 57 7-18 mg/dl Creatinine 1.70 0.60-1.40 mg/dl Est Creatinine Clear Calc Drug Dose 43.3 ml/min Estimated GFR () 45.7 Estimated GFR (Non- 39.4 BUN/Creatinine Ratio 33.6 10-20 Random Glucose 81 70-99 mg/dl Calcium Level 9.4 8.5-10.1 mg/dl Thyroid Stimulating Hormone (TSH) 0.644 0.300-4.500 uIu/ml Total Creatine Kinase 27 39-308 U/L Creatine Kinase MB 5.2 0.5-3.6 ng/ml Creatine Kinase MB Ratio 19.3 0-3.0 Troponin I 0.196 0-0.045 ng/ml Microbiology Results 12/03/16 Blood Culture, Received Pending 12/03/16 Blood Culture, Received Pending
[2016-12-03] MEDS ORDERED: MAGIC SWIZZLE PO SCH (14:00)
--- NOTE | 2016-12-03 15:30 | DIAGNOSTIC IMAGING REPORT ---
ULTRASOUND VENOUS DOPPLER LWR EXT BILA CLINICAL HISTORY: Tachycardia. Possible pulmonary embolism. Leg swelling. COMPARISON STUDY: None FINDINGS: On the right, no intraluminal thrombus was visualized. The common femoral superficial femoral and popliteal veins were patent and fully compressible. There is normal color-flow within the proximal trifurcation veins on the right. On the left, there is thrombus seen within the superficial femoral vein, popliteal vein, as well as the posterior tibial peroneal and anterior tibial veins. There are superficial femoral artery aneurysms with thin the left leg. Proximally there is a 2.5 cm aneurysm and in the midportion there is a 2.5 cm aneurysm. There is incidentally significant left SFA stenosis. IMPRESSION: 1. No evidence of right lower extremity DVT 2. Moderately extensive acute left lower extremity DVT involving the superficial femoral, popliteal, and proximal trifurcation vessels 3. Left superficial femoral artery aneurysms. Left superficial femoral artery stenosis. Electronically signed by: Adam Hodges M.D. 12/03/2016 3:28 PM Dictated Date/Time: 12/03/2016 3:25 PM
[2016-12-03] MEDS: LIDOCAINE HCL 2% VISCOUS SOLN 60 ML, DiphenhydrAMINE HCL SYRUP 150 MG, ALUMINUM/MAGNESI... MT SCH ×8 (15:31→22:10)
[2016-12-03 15:38] VITALS: BP 93/64; PULSE 84; TEMP 36.5; O2SAT 95
--- NOTE | 2016-12-03 17:09 | Progress Note ---
Progress Note Date of Service Dec 03, 2016. Progress Note ATTENDING NOTE : Lower ext Doppler result reviewed : IMPRESSION: 1. No evidence of right lower extremity DVT 2. Moderately extensive acute left lower extremity DVT involving the superficial femoral, popliteal, and proximal trifurcation vessels 3. Left superficial femoral artery aneurysms. Left superficial femoral artery stenosis. -Pt is not a candidate for anticoagulation for DVT -extensive bleeding complication /recent retroperitoneal Hge has IVC filter vascular surgery consulted for for left sup femoral artery aneurysm
[2016-12-03 19:37] VITALS: BP 103/64; PULSE 77; TEMP 36.8; O2SAT 97
[2016-12-03 23:12] VITALS: BP 104/68; PULSE 74; TEMP 36.4; O2SAT 97
[2016-12-04 02:59] VITALS: BP 112/72; PULSE 80; TEMP 36.6; O2SAT 95
[2016-12-04] MEDS: LIDOCAINE HCL 2% VISCOUS SOLN 60 ML, DiphenhydrAMINE HCL SYRUP 150 MG, ALUMINUM/MAGNESI... MT SCH ×8 (05:48→13:51)
[2016-12-04 06:44] LABS: HEMATOCRIT 31.7 % (42-52); MEAN CELL VOLUME 93.8 fL (80-100); MEAN CORPUSCULAR HEMOGLOBIN 33.4 pg (25-34); MEAN CORPUSCULAR HGB CONC 35.6 g/dl (32-36); RED BLOOD COUNT 3.38 M/uL (4.7-6.1); WHITE BLOOD COUNT 7.45 K/uL (4.8-10.8)
[2016-12-04 07:15] LABS: MEAN PLATELET VOLUME 10.5 fL (7.4-10.4); PLATELET COUNT 83 K/uL (130-400)
[2016-12-04 07:17] LABS: BUN/CREATININE RATIO 32.2 (10-20); CALCIUM 8.7 mg/dl (8.5-10.1); CREATININE 1.7 mg/dl (0.60-1.40); POTASSIUM 3.6 mmol/L (3.5-5.1)
[2016-12-04] MEDS: METOPROLOL SUCC 25MG EXT REL TAB PO SCH (07:46)
[2016-12-04] MEDS: ASPIRIN 81 MG ECTAB PO SCH (07:46)
[2016-12-04] MEDS: PANTOprazole SOD 40 MG TAB PO SCH (07:46)
[2016-12-04] MEDS: ATORVASTATIN 40 MG TAB PO SCH (07:46)
[2016-12-04] MEDS: CYANOCOBALAMIN 500 MCG TAB (VIT B-12) PO SCH (07:46)
[2016-12-04] MEDS: MULTIVITAMIN TAB PO SCH (07:47)
[2016-12-04 07:50] VITALS: BP 113/74; PULSE 86; TEMP 36.6; O2SAT 94
[2016-12-04] MEDS ORDERED: FUROSEMIDE 40 MG TAB PO SCH (09:00)
--- NOTE | 2016-12-04 09:28 | Progress Note ---
Subjective Date of Service: Dec 04, 2016. Subjective Pt evaluation today including: conversation w/ patient, physical exam, lab review, review of studies, review of inpatient medication list Saw/examined the patient in room 217 No issues to note today, denies chest pain/shortness of breath Good PO intake Still feels weak on his feet - working with PT/OT Problem List Medical Problems: (1) Acute on chronic renal failure Status: Acute (2) Anemia Status: Acute (3) Anemia Status: Acute (4) CAD (coronary artery disease) Status: Chronic (5) Cardiac ischemia Status: Acute (6) Elevated troponin Status: Acute (7) Elevated troponin Status: Acute (8) Frequent falls Status: Acute (9) Hematuria Status: Acute (10) Hematuria of undiagnosed cause Status: Acute (11) Thrombocytopenia Status: Acute (12) Weakness Status: Acute (13) Weakness Status: Acute Review of Systems Constitutional: + weakness, + fatigue, No fever, No chills Respiratory: No cough, No sputum, No wheezing, No shortness of breath, No dyspnea on exertion, No dyspnea at rest, No hemoptysis Cardiac: No chest pain, No edema, No palpitations Abdomen: No pain, No nausea, No vomiting, No diarrhea Musculoskeletal: No joint pain Psychiatric: No depression symptoms Heme: No abnormal bleeding/bruising Medications Current Inpatient Medications Medications (Trade) Dose Ordered Sig/Kathy Route Start Time Stop Time Status Last Admin Dose Admin Acetaminophen (Tylenol Tab) 650 mg Q4H PRN PO 12/02/16 18:30 01/01/17 18:29 Al Hydrox/Mg Hydrox/Simethicone (Maalox Max Susp) 15 ml Q4H PRN PO 12/02/16 18:30 01/01/17 18:29 Magnesium Hydroxide (Milk Of Magnesia Susp) 30 ml Q12H PRN PO 12/02/16 18:30 01/01/17 18:29 Ondansetron HCl (Zofran Inj) 4 mg Q6H PRN IV 12/02/16 18:30 01/01/17 18:29 Polyethylene (Miralax Powder Packet) 17 gm DAILY PRN PO 12/02/16 18:30 01/01/17 18:29 Aspirin (Ecotrin Tab) 81 mg DAILY PO 12/03/16 09:00 01/02/17 08:59 12/04/16 07:46 81 MG Atorvastatin Calcium (Lipitor Tab) 40 mg DAILY PO 12/03/16 09:00 01/02/17 08:59 12/04/16 07:46 40 MG Cyanocobalamin (Vitamin B-12 Tab) 1,000 mcg DAILY PO 12/03/16 09:00 01/02/17 08:59 12/04/16 07:46 1,000 MCG Folic Acid (Folvite Tab) 1 mg DAILY PO 12/03/16 09:00 01/02/17 08:59 12/04/16 07:46 1 MG Metoprolol Succinate (Toprol Xl Tab) 25 mg DAILY PO 12/03/16 09:00 01/02/17 08:59 12/04/16 07:46 25 MG Multivitamins (Multivitamin Tab) 1 tab DAILY PO 12/03/16 09:00 01/02/17 08:59 12/04/16 07:47 1 TAB Prednisone (PredniSONE TAB) 50 mg DAILY PO 12/03/16 09:00 01/02/17 08:59 12/04/16 07:46 50 MG Pantoprazole Sodium (Protonix Tab) 40 mg DAILY PO 12/03/16 09:00 01/02/17 08:59 12/04/16 07:46 40 MG Benzocaine (Orajel 2% Oral Gel) 1 appln Q6 PRN VA 12/03/16 13:15 01/02/17 13:14 Lidocaine HCl/ Diphenhydramine HCl/Al Hydroxide/ Mg Hydroxide/ Glycerin/Barcode Q8 VA 12/03/16 15:00 12/06/16 06:01 12/04/16 05:48 5 ML Objective Vital Signs Date Time Temp Pulse Resp B/P (MAP) Pulse Ox O2 Delivery O2 Flow Rate FiO2 12/04/16 08:00 Room Air 12/04/16 07:50 36.6 86 16 113/74 (87) 94 Room Air 12/04/16 06:00 Room Air 12/04/16 02:59 36.6 80 19 112/72 (85) 95 Room Air 12/04/16 00:01 Room Air 12/03/16 23:12 36.4 74 19 104/68 (80) 97 Room Air 12/03/16 20:00 Room Air 12/03/16 19:37 36.8 77 20 103/64 (77) 97 Room Air 12/03/16 16:00 Room Air 12/03/16 15:38 36.5 84 18 93/64 (74) 95 Room Air 12/03/16 12:00 Room Air 12/03/16 11:36 37.6 111 18 96/59 (71) 93 Room Air Physical Exam General Appearance: no apparent distress Eyes: + pertinent finding (R eye bandaged/removed 20 yrs. prior) ENT: hearing grossly normal Respiratory/Chest: lungs clear, normal breath sounds, no respiratory distress, no accessory muscle use Cardiovascular: regular rate, rhythm, no edema, no murmur Abdomen: normal bowel sounds, non tender, soft Extremities: normal inspection, no pedal edema Neurologic/Psychiatric: no motor/sensory deficits, alert, normal mood/affect Skin: normal color Laboratory Results Last 24 Hours Test 12/04/16 06:24 White Blood Count 7.45 K/uL Red Blood Count 3.38 M/uL Hemoglobin 11.3 g/dL Hematocrit 31.7 % Mean Corpuscular Volume 93.8 fL Mean Corpuscular Hemoglobin 33.4 pg Mean Corpuscular Hemoglobin Concent 35.6 g/dl RDW Standard Deviation 54.5 fL RDW Coefficient of Variation 15.9 % Platelet Count 83 K/uL Mean Platelet Volume 10.5 fL Sodium Level 135 mmol/L Potassium Level 3.6 mmol/L Chloride Level 98 mmol/L Carbon Dioxide Level 31 mmol/L Anion Gap 6.0 mmol/L Blood Urea Nitrogen 55 mg/dl Creatinine 1.70 mg/dl Est Creatinine Clear Calc Drug Dose 42.8 ml/min Estimated GFR () 45.7 Estimated GFR (Non- 39.4 BUN/Creatinine Ratio 32.2 Random Glucose 78 mg/dl Calcium Level 8.7 mg/dl Assessment and Plan This is a 71 year old male with a complex medical history including 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, recent NSTEMI in September 2016, dilated cardiomyopathy on Lasix , recent DVT of upper extremity, recent retroperitoneal hemorrhage Generalized Weakness possibly related to long-stay at [facility] last month will need PT/OT which have been ordered discharge planning - will likely need placement electrolytes, TSH wnl Hgb stable plan for d/c to [facility] today for rehab Elevated Troponin Recent NSTEMI presented here in September with NSTEMI transferred to [facility] and managed there was discharged on aspirin, statin, b-christina troponin seems to be stable from previous, will trend enzymes, monitor in tele cardiology consulted routinely - patient was to see Dr. Fay on 12/07 Cardiomyopathy Systolic CHF echo shows EF of ~65%, cardiomyopathy resolved Lasix changed to once daily dosing to prevent further dehydration CKD stage 3-4 hx. of renal cell carcinoma s/p nephrectomy creatinine is around baseline of 1.9-2.0 given IVFs in the ER; hold off on further hydration due to systolic CHF Lasix now once daily dosing Autoimmune Hemolytic Anemia patient follows with hematology; was just seen by hematology on November 28 prednisone tapered down to 50mg daily, which we will continue monitor H/H DVT ppx SCDs: recent retroperitoneal hemorrhage at [facility] FULL CODE
--- NOTE | 2016-12-04 10:41 | Clinical Documentation Query ---
CLINICAL DOCUMENTATION QUERY Dr. SUMMERS, In your clinical opinion is this patient being managed for: ( X ) acute DVT LLE ( ) Other explanation of clinical findings (Please Explain) ( ) Unable to determine (Please Define) ( ) Need to Discuss ( ) Not Agree The medical record reflects the following clinical findings, treatment, and risk factors. Clinical Indicators: 71 yo male presenting with constant weakness. LE doppler showed Moderately extensive acute left lower extremity DVT involving the superficial femoral, popliteal, and proximal trifurcation vessels. This has been mentioned briefly in 1 progress note but has not appeared on subsequent note. Treatment: vascular surgery consult pending Risk Factors:extended illness with decreased mobility Please clarify and document your clinical opinion in the progress notes and discharge summary. Terms such as "probable", "suspected", "likely", "questionable", "possible", or "still to be ruled out" are acceptable. IF IN AGREEMENT, YOU MUST DOCUMENT ABOVE DIAGNOSTIC STATEMENT IN DAILY PROGRESS NOTES AND DISCHARGE SUMMARY. This document is not part of the patient's record. Thank You, Virginia Pompa RN [phone]
[2016-12-04 11:39] VITALS: BP 95/65; PULSE 89; TEMP 37; O2SAT 92
--- NOTE | 2016-12-04 13:24 | Cardiology Follow-Up ---
Subjective General Date of Service: Dec 04, 2016. Pt evaluation today including: conversation w/ patient, physical exam, chart review, lab review, review of studies, review of inpatient medication list History of Present Illness The patient is a 71 year old male seen in follow-up. Resting comfortably. Denies chest pain or shortness of breath. Intermittent sinus tachycardia noted on telemetry. No new problems overnight. Patient offers no complaints currently. Awaiting placement. Allergies Coded Allergies: Sulfamethoxazole w/Trimethoprim (Verified Allergy, Unknown, Hives, 11/28/16 ) Social History Smoking Status: Former Smoker Hx Tobacco Use In Past Year?: No Hx Alcohol Use - Type And Amou: No Hx Substance Use - Type And Am: No Problem List Medical Problems: (1) Acute on chronic renal failure Status: Acute (2) Anemia Status: Acute (3) Anemia Status: Acute (4) CAD (coronary artery disease) Status: Chronic (5) Cardiac ischemia Status: Acute (6) Elevated troponin Status: Acute (7) Elevated troponin Status: Acute (8) Frequent falls Status: Acute (9) Hematuria Status: Acute (10) Hematuria of undiagnosed cause Status: Acute (11) Thrombocytopenia Status: Acute (12) Weakness Status: Acute (13) Weakness Status: Acute Review of Systems Respiratory: + dyspnea on exertion, No cough, No wheezing, No shortness of breath, No dyspnea at rest, No hemoptysis Cardiac: No chest pain, No orthopnea, No PND, No edema, No claudication, No palpitations Physical Exam Vital Signs Last Vital Signs Documentation Date Time Temp Pulse Resp B/P (MAP) Pulse Ox O2 Delivery O2 Flow Rate FiO2 12/04/16 12:00 Room Air 12/04/16 11:39 37.0 89 18 95/65 (75) 92 Physical Exam Constitutional: Level of Distress: NAD Lungs: Auscultation: no wheezing, no rales/crackles, no rhonchi Cardiovascular: Heart Auscultation: RRR, normal S1, normal S2, no murmurs Peripheral Pulses: Radial Pulse: normal on the right Abdomen: Bowel Sounds: normal Inspection & Palpation: soft, non-distended, no tenderness, guarding & rebound Extremities: no cyanosis, no edema, no clubbing, no ulcers Neurologic: Gait & Station: pertinent finding (no focal motor deficit.) Assessment and Plan Assessment and Plan FINAL IMPRESSION: 1. 70-year-old patient admitted with multifactorial weakness secondary to anemia, and dehydration. - Diuretics placed on hold Weakness, multifactorial with multiple readmissions due to hemolytic anemia/DVT right arm, retroperitoneal hemorrhage. Would benefit from rehab. 2. Presumed ischemic Cardiomyopathy with normalization of LV systolic function 3. Extensive acute left lower extremity DVT - history of IVC filter placement. - Patient is not a long-term candidate for anticoagulation 4. Sinus tachycardia -secondary to volume depletion 5. Acute on chronic renal insufficiency - Creatinine unchanged today 6. Elevated troponin on admission not indicative of coronary plaque rupture event 7. Hemolytic anemia - on high dose steroids. Hbg stable 8. H/o solitary kidney with previous nephrectomy. RECOMMENDATIONS: Continue to hold diuretic therapy at this time. Encourage oral hydration. Continue to monitor volume status and renal function closely. Patient may require low-dose furosemide in the future. If discharge would recommend assessing daily weights as well as repeat basic metabolic panel in one week. Other medications will be continued as previously ordered. Laboratory Results Last 24 Hours Test 12/04/16 06:24 White Blood Count 7.45 K/uL Red Blood Count 3.38 M/uL Hemoglobin 11.3 g/dL Hematocrit 31.7 % Mean Corpuscular Volume 93.8 fL Mean Corpuscular Hemoglobin 33.4 pg Mean Corpuscular Hemoglobin Concent 35.6 g/dl RDW Standard Deviation 54.5 fL RDW Coefficient of Variation 15.9 % Platelet Count 83 K/uL Mean Platelet Volume 10.5 fL Sodium Level 135 mmol/L Potassium Level 3.6 mmol/L Chloride Level 98 mmol/L Carbon Dioxide Level 31 mmol/L Anion Gap 6.0 mmol/L Blood Urea Nitrogen 55 mg/dl Creatinine 1.70 mg/dl Est Creatinine Clear Calc Drug Dose 42.8 ml/min Estimated GFR () 45.7 Estimated GFR (Non- 39.4 BUN/Creatinine Ratio 32.2 Random Glucose 78 mg/dl Calcium Level 8.7 mg/dl
--- NOTE | 2016-12-04 13:43 | Surgery Consultation ---
Consultation Date of Service Dec 04, 2016. Chief Complaint femoral art aneurysms, AAA History of Present Illness The patient is a 71 year old male with multiple medical problems, including recent NSTEMI and acute DVT, seen in consultation today for eval d/t incidental finding of femoral art aneurysms on a venous doppler US. Pt admits chronic fatigue, malaise. Denies JACQUES, fever, chills, chest pain, SOB, abd pain, N/V, rest pain, claudication, ulcerations other complaints. No previous hx of DVT per pt, however, pt with IVC filter noted on CT scan. Vitals Vital Signs Past 12 Hours Date Time Temp Pulse Resp B/P (MAP) Pulse Ox O2 Delivery O2 Flow Rate FiO2 12/04/16 12:00 Room Air 12/04/16 11:39 37.0 89 18 95/65 (75) 92 12/04/16 08:00 Room Air 12/04/16 07:50 36.6 86 16 113/74 (87) 94 Room Air 12/04/16 06:00 Room Air 12/04/16 02:59 36.6 80 19 112/72 (85) 95 Room Air Allergies Coded Allergies: Sulfamethoxazole w/Trimethoprim (Verified Allergy, Unknown, Hives, 11/28/16 ) Home Medications Scheduled Ascorbic Acid (Vitamin C), 1,000 MG PO DAILY Aspirin (Aspirin Ec), 81 MG PO DAILY Atorvastatin (Atorvastatin Calcium), 40 MG PO DAILY Cholecalciferol (Vitamin D3), 1,000 UNIT PO DAILY Cyanocobalamin (Vitamin B-12), 1,000 MCG PO DAILY Denosumab (Xgeva), 120 MCG INJ MONTHLY Folic Acid (Folvite), 1 MG PO DAILY Furosemide (Furosemide), 40 MG PO BID Metoprolol Succinate (Metoprolol Succinate ER), 25 MG PO DAILY Multiple Vitamin (Multi Vitamin Daily), 1 TAB PO DAILY [facility]-3 Fatty Acids (Fish Oil 1200 mg), 1 CAP PO DAILY Omeprazole (Prilosec), 20 MG PO DAILY Prednisone (Prednisone), 50 MG PO DAILY [Magic Swizzle], 5 ML PO Q8 Scheduled PRN Aluminum/Magnesium/Simeth (Mag-Al Plus Xs 400-400-40 mg/5Ml), 15 ML PO Q4H PRN for Dyspepsia Benzocaine (Hurricaine), 1 APPLN MT Q6 PRN for mouth sore Magnesium Hydroxide (Milk of Magnesia), 30 ML PO Q12H PRN for Constipation Nitroglycerin (Nitrostat), 0.4 MG UT UD PRN for Chest Pain Polyethylene (Miralax), 17 GM PO DAILY PRN for Constipation Problem List Medical Problems: (1) AAA (abdominal aortic aneurysm) (2) CAD (coronary artery disease) (3) DVT (deep venous thrombosis) (4) Head and neck cancer (5) History of DVT (deep vein thrombosis) (6) History of subdural hemorrhage (7) Hyperlipidemia (8) Impotence of organic origin (9) Malignant neoplasm (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 (11) Pneumonia (12) Recent inferior myocardial infarction (13) Right shoulder pain Surgical Problems: (1) History of inguinal hernia repair (2) History of sinus surgery Surgical / Medical History Hx Cardiac Surgery: No Hx Abdominal Surgery: Yes ("rupture" [id number]) Hx Cancer Surgery: Yes (right eye enucleation, sinuses 1993) Hx Thoracic Surgery: No Hx Orthopedic: No Hx Urinary Tract Surgery: No HX Other Surgery: Yes Past Medical/Surgical History: Blood Dyscrasias, Cancer, Chronic Steroid Use, Heart Disease, High Cholesterol, Hypertension, Kidney Disease Family History FH: heart disease FHx: cancer Hypertension Social History Smoking Status: Former Smoker Hx Tobacco Use In Past Year?: No Hx Alcohol Use - Type & Amnt: No Hx Substance Use -Type & Amnt: No Review of Systems Constitutional: + malaise, No chills, No fever Skin: No change in color Eyes: No visual changes (s/p enucleation of R eye) ENMT: No sore throat Respiratory: No cough, No CHAUDHARY, No hemoptysis, No short of breath Cardiovascular: No chest pain, No palpitations, No syncope, No edema, No intermittent claudication Gastrointestinal: No abdominal pain, No nausea, No vomiting Neurologic: + weakness, No dizziness, No headache, No lethargy, No numbness, No tingling Physical Exam Constitutional: General Apperance: well-nourished, well-developed Level of Distress: NAD, chronically ill Psychiatric: Mental Status: active & alert, normal mood, normal affect Orientation: oriented except where noted, to time, to place, to person Memory: recent memory normal, remote memory normal Head: normocephalic, atraumatic Eyes: EOM: pertinent finding (R eye dressing in place) ENMT: normal ENT inspection, hearing grossly normal Neck: supple, trachea midline Lungs: Respiratory effort: no dyspnea Auscultation: no wheezing, no rales/crackles, no rhonchi, decreased breath sounds Cardiovascular: Apical Impulse: not displaced Heart Auscultation: RRR, no murmurs, no rubs, no gallops Peripheral Pulses: Pulses: full and equal, in all extremities except if noted Bruits: none appreciated Carotid Pulse: normal on the left, normal on the right Brachial Pulses: normal on the left, normal on the right Radial Pulse: normal on the left, normal on the right Femoral Pulse: normal on the left, normal on the right (prominent) Posterior Tibialis Pulse: decreased on the left, decreased on the right Dorsalis Pedis Pulse: decreased on the left, decreased on the right Abdomen: Bowel Sounds: normal Inspection & Palpation: soft, non-distended, no tenderness, guarding & rebound Musculoskeletal: normal strength (5/5 throughout), normal tone Extremities: Upper Right: no cyanosis, no edema, no varicosities Upper Left: no cyanosis, no edema, no varicosities Lower Right: no cyanosis, no varicosities, no palpable cord, edema Lower Left: no cyanosis, no varicosities, no palpable cord, edema Neurologic: Cranial Nerves: grossly intact Sensation: grossly intact Assessment and Plan ASSESSMENT and PLAN: 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 Ordered dedicated arterial US to eval the aneurysms and will make further recommendations after that performed. If pt is discharged before we get to discuss the US, we can see in office as outpt to discuss US findings. No indications for urgent intervention at this time.
[2016-12-04 16:02] VITALS: BP 94/63; PULSE 87; TEMP 36.6; O2SAT 92
--- NOTE | 2016-12-04 17:39 | DIAGNOSTIC IMAGING REPORT ---
BILATERAL LOWER EXTREMITY ARTERIAL DOPPLER ULTRASOUND CLINICAL HISTORY: Femoral artery aneurysms. COMPARISON STUDY: Bilateral lower extremity venous Doppler December 03, 2016. TECHNIQUE: Grayscale and color and duplex Doppler sonography of the arterial systems of both lower extremities was performed. Ankle to brachial indices could not be obtained in this patient. FINDINGS: There is biphasic flow within the right common femoral artery. There is extensive atherosclerotic plaque within each lower extremity. There is age indeterminate occlusion of the right superficial femoral artery with distal reconstitution. However, distal flow is monophasic and dampened. There is monophasic flow within the right anterior tibial, posterior tibial and dorsalis pedis. There is minimal flow within the right peroneal artery. There is biphasic flow within the left common femoral artery. There is a 2.3 x 2.1 cm aneurysm within the proximal left superficial femoral artery and a 2.8 x 2.5 cm aneurysm within the mid left superficial femoral artery. These aneurysms contain eccentric neural thrombus. An elevated peak systolic velocity of 264 cm/s was noted within the mid left superficial femoral artery consistent with a hemodynamically significant stenosis. There is monophasic dampened flow downstream from this stenosis. Extensive left lower extremity deep venous thrombus is again noted. IMPRESSION: 1. Extensive atherosclerotic plaque within each lower extremity. Age indeterminate occlusion of the right superficial femoral artery with distal reconstitution. However, distal flow is dampened and monophasic, as described above. 2. Hemodynamically significant stenosis within the left superficial femoral artery with monophasic flow distal to the stenosis. 3. 2.8 x 2.5 cm aneurysm within the mid left superficial femoral artery and 2.3 x 2.1 cm aneurysm within the proximal left superficial femoral artery. Aneurysm sacs contain extensive eccentric mural thrombus. 4. Redemonstration of extensive left lower extremity deep venous thrombus as shown on exam of December 03, 2016. Electronically signed by: Naren Hodges M.D. 12/04/2016 5:38 PM Dictated Date/Time: 12/04/2016 5:30 PM
[2016-12-04 17:42] VITALS: BP 94/63; PULSE 87; TEMP 36.6; O2SAT 92
--- NOTE | 2016-12-04 17:49 | Discharge Summary ---
Discharge Summary Date of Service Dec 04, 2016. 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 states that she needs him to get therapy and get stronger prior to returning home. There are no other symptoms to note today; denies chest pain, shortness of breath, denies palpitations, denies edema, denies fevers/chills, nausea/vomiting/diarrhea. Physical Exam (per Admitting): General Appearance: no apparent distress Eyes: + pertinent finding (bandage over R eye) ENT: hearing grossly normal Neck: supple Respiratory/Chest: chest non-tender, lungs clear, normal breath sounds, no respiratory distress, no accessory muscle use Cardiovascular: regular rate, rhythm, no edema, no murmur Abdomen/GI: normal bowel sounds, non tender, soft Extremities/Musculoskelatal: normal capillary refill, no pedal edema Neurologic/Psych: no motor/sensory deficits, alert, normal mood/affect Skin: normal color Lymphatic: no adenopathy Hospital Course This is a 71 year old male with a complex medical history including 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, recent NSTEMI in September 2016, dilated cardiomyopathy on Lasix , recent DVT of upper extremity, recent retroperitoneal hemorrhage Generalized Weakness possibly related to long-stay at [facility] last month will need PT/OT which have been ordered discharge planning - will likely need placement electrolytes, TSH wnl Hgb stable plan for d/c to [facility] today for rehab Elevated Troponin Recent NSTEMI presented here in September with NSTEMI transferred to [facility] and managed there was discharged on aspirin, statin, b-christina troponin seems to be stable from previous, will trend enzymes, monitor in tele cardiology consulted routinely - patient was to see Dr. Fay on 12/07 Cardiomyopathy Systolic CHF echo shows EF of ~65%, cardiomyopathy resolved Lasix changed to once daily dosing to prevent further dehydration CKD stage 3-4 hx. of renal cell carcinoma s/p nephrectomy creatinine is around baseline of 1.9-2.0 given IVFs in the ER; hold off on further hydration due to systolic CHF Lasix now once daily dosing Autoimmune Hemolytic Anemia patient follows with hematology; was just seen by hematology on November 28 prednisone tapered down to 50mg daily, which we will continue monitor H/H DVT ppx SCDs: recent retroperitoneal hemorrhage at [facility] FULL CODE Total time spent on discharge = 45 minutes This includes examination of the patient, discharge planning, medication reconciliation, and communication with other providers. Discharge Instructions Follow-up with vascular surgery and family physician after stay at rehab facility
== END 2016-12-04 18:05 | DRG 300 ==
LOC: C.EDB 15:34 → C.2T 18:32 → ENRESERV 18:47
PROVIDERS: ADMIT Family Medicine; ATTEND Family Medicine
DX: I82.431 Acute embolism and thrombosis of right popliteal vein (principal); D59.1 Other autoimmune hemolytic anemias; N18.4 Chronic kidney disease, stage 4 (severe); I50.20 Unspecified systolic (congestive) heart failure; I42.0 Dilated cardiomyopathy; C79.51 Secondary malignant neoplasm of bone; N17.9 Acute kidney failure, unspecified; I71.4 Abdominal aortic aneurysm, without rupture; I72.4 Aneurysm of artery of lower extremity; I82.811 Embolism and thrombosis of superficial veins of right lower extremity; R31.9 Hematuria, unspecified; I25.10 Atherosclerotic heart disease of native coronary artery without angina pectoris; Z86.718 Personal history of other venous thrombosis and embolism; E78.5 Hyperlipidemia, unspecified; Z85.22 Personal history of malignant neoplasm of nasal cavities, middle ear, and accessory sinuses; Z87.891 Personal history of nicotine dependence; Z90.01 Acquired absence of eye; Z85.528 Personal history of other malignant neoplasm of kidney; Z90.5 Acquired absence of kidney; Z86.73 Personal history of transient ischemic attack (TIA), and cerebral infarction without residual deficits; I25.2 Old myocardial infarction; Z95.828 Presence of other vascular implants and grafts; Z92.3 Personal history of irradiation; Z79.52 Long term (current) use of systemic steroids

== ENCOUNTER → 2016-12-06 | Outpatient (CLI) | payer BC ==
[~2016-12-06] MED LIST changes: +ACET-1311 PO; -ALCL0.05 TOP; +IPRASOL4 INH; -KPH PO; +LEVO-17 PO; -LSX40 PO; +MAGIC SWIZZLE PO; +MAGIC1 PO; +MLXESC PO; +MOMLX PO; +MRLP17X PO; -OMEG10007 PO; +ORJ MT; +POLY335019 PO; -TRMCR130WC TOP
== END ==
LOC: C.LABSPEC 16:55
PROVIDERS: ATTEND Internal Medicine
DX: R06.02 Shortness of breath (principal); R05 Cough; R50.9 Fever, unspecified

== ENCOUNTER → 2016-12-06 | Outpatient (CLI) | payer BC ==
[2016-12-06 13:50] LABS: HEMATOCRIT 37.4 % (42-52); MEAN CELL VOLUME 93.5 fL (80-100); MEAN CORPUSCULAR HEMOGLOBIN 32.5 pg (25-34); MEAN CORPUSCULAR HGB CONC 34.8 g/dl (32-36); MEAN PLATELET VOLUME 11.4 fL (7.4-10.4); PLATELET COUNT 126 K/uL (130-400); WHITE BLOOD COUNT 13.69 K/uL (4.8-10.8)
[2016-12-06 13:55] LABS: ALB/GLOB RATIO 0.9 (0.9-2); ALKALINE PHOSPHATASE 64 U/L (45-117); ALT/SGPT 22 U/L (12-78); AST/SGOT 42 U/L (15-37); BLOOD UREA NITROGEN 48 mg/dl (7-18); CALCIUM 9.6 mg/dl (8.5-10.1); CARBON DIOXIDE 27 mmol/L (21-32); CHLORIDE 101 mmol/L (98-107); GLUCOSE 93 mg/dl (70-99); POTASSIUM 4.5 mmol/L (3.5-5.1); SODIUM 136 mmol/L (136-145)
[2016-12-06 14:01] LABS: BASO % 0.1 %; BASO ABS # 0.02 K/uL (0-0.2); COMPLETE YES; ECHINOCYTES 1+; EOS % 0.7 %; IG% 0.9 %; LYMPH % 5.8 %; LYMPH ABS # 0.79 K/uL (1.2-3.4); MONO % 2.2 %; NEUT % 90.3 %
== END ==
LOC: C.LABCC 12:32
PROVIDERS: ATTEND Internal Medicine
DX: R06.02 Shortness of breath (principal); R05 Cough; R50.9 Fever, unspecified

== ENCOUNTER 2016-12-08 01:06 | Inpatient (IN) | payer BC, OTHER ==
[2016-12-08] VITALS (12 sets, daily range): BP systolic 81–95; BP diastolic 53–64; PULSE 77–115; TEMP 36.4–37; O2SAT 91–98; Ht 188 cm; Wt 84.8 kg
[~2016-12-08] VITALS: Ht 188 cm; Wt 84.8 kg
[~2016-12-08 01:06] MED LIST changes: -ACET-1311 PO; -IPRASOL4 INH; -LEVO-17 PO; -MAGIC1 PO; -POLY335019 PO
[2016-12-08] MEDS ORDERED: SODIUM CHLORIDE 0.9% 1000ML 1,000 ML IV STA ×2 (01:23→02:32)
--- NOTE | 2016-12-08 01:28 | EMERGENCY ROOM VISIT NOTE ---
History Report prepared by Alpesh: Kia Steinberg Under the Supervision of: Dr. Ochoa Kenny M.D. First contact with patient: 01:17 Stated Complaint: SOB/ [facility] History of Present Illness The patient is a 71 year old male who presents to the Emergency Room from [facility] with complaints of persistent shortness of breath starting a few days ago. The patient had a blood culture today which was positive for gram + cocci. Worsening shob over the evening requiring NC O2. Denies pain nor other symptoms. Has been on Levaquin last 48 hours for pneumonia by CXR. He has a history of sinus cancer, and renal cell carcinoma. He currently denies chest pain, or any other complaints. Review of chart notes EF 60-65% on admission last week. Source of History: patient Onset: a few days ago Position: other (global) Quality: other (shortness of breath) Timing: other (persistent) Associated Symptoms: No chest pain Review of Systems See HPI for pertinent positives & negatives. A total of 10 systems reviewed and were otherwise negative. 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 (11) Pneumonia (12) Recent inferior myocardial infarction (13) Respiratory failure, acute (14) Right shoulder pain Surgical Problems: (1) History of inguinal hernia repair (2) History of sinus surgery Family History FH: heart disease FHx: cancer Hypertension Social History Smoking Status: Former Smoker Alcohol Use: none Drug Use: none Marital Status: Housing Status: lives with family Occupation Status: retired Current/Historical Medications Scheduled Ascorbic Acid (Vitamin C), 1,000 MG PO DAILY Aspirin (Aspirin Ec), 81 MG PO DAILY Atorvastatin (Atorvastatin Calcium), 40 MG PO DAILY Cholecalciferol (Vitamin D3), 1,000 UNIT PO DAILY Cyanocobalamin (Vitamin B-12), 1,000 MCG PO DAILY Denosumab (Xgeva), 120 MCG INJ MONTHLY Diphenhy/Alum/Mag/Sucralfa (Magic Swizzle - Diphenhy/Alum/Mag/Sucralfa), 1 TSP PO Q8 Folic Acid (Folvite), 1 MG PO DAILY Ipratropium-Albuterol (Duoneb), 1 TREATMENT INH Q6H Levofloxacin (Levaquin), 250 MG PO DAILY Metoprolol Succinate (Metoprolol Succinate ER), 25 MG PO DAILY [place]-3 Fatty Acids (Fish Oil 1200 mg), 1 CAP PO DAILY Omeprazole (Prilosec), 20 MG PO DAILY Prednisone (Prednisone), 50 MG PO DAILY Scheduled PRN Acetaminophen (Tylenol), 650 MG PO Q6H PRN for MILD PAIN Aluminum/Magnesium/Simeth (Mag-Al Plus Xs 400-400-40 mg/5Ml), 15 ML PO Q4H PRN for Dyspepsia Benzocaine (Hurricaine), 1 APPLN MT Q6 PRN for mouth sore Nitroglycerin (Nitrostat), 0.4 MG UT UD PRN for Chest Pain Polyethylene Glycol 3350 (Miralax), 17 GM PO DAILY PRN for Constipation Allergies Coded Allergies: Sulfamethoxazole w/Trimethoprim (Verified Allergy, Unknown, Hives, 11/28/16 ) Physical Exam Vital Signs Date Time Temp Pulse Resp B/P (MAP) Pulse Ox O2 Delivery O2 Flow Rate FiO2 12/08/16 04:46 105 31 93 Mask 7.0 12/08/16 04:16 103 34 92 Mask 7.0 12/08/16 04:01 90/53 12/08/16 03:46 120 28 93 Mask 7.0 12/08/16 03:16 119 36 95 Mask 7.0 12/08/16 03:11 116 33 94 Mask 7.0 12/08/16 03:01 100/53 12/08/16 02:42 93 Mask 7.0 12/08/16 02:41 127 31 87 Nasal Cannula 5.0 12/08/16 02:11 99 33 94 Nasal Cannula 5.0 12/08/16 02:01 116/60 12/08/16 01:41 137 31 12/08/16 01:41 135 32 100/56 94 Nasal Cannula 5.0 12/08/16 01:15 88 Room Air 12/08/16 01:15 37.2 140 33 90/53 92 Nasal Cannula 5.0 Physical Exam GENERAL: Patient is ill appearing and in mild distress. HEENT: No acute trauma, normocephalic atraumatic, mucous membranes dry, no nasal congestion, no scleral icterus. NECK: No stridor, no adenopathy, no meningismus, trachea is midline. LUNGS: Diffuse crackles in all lung vail, with decrease breath sounds in mostly left and some in right, mildly dyspneic with a junky cough. HEART: Tachycardic rate and regular rhythm. No murmurs, rubs, gallops appreciated. ABDOMEN: Soft, nontender, bowel sounds positive, no masses appreciated, no peritonitis. BACK: No midline tenderness, no CVA tenderness EXTREMITIES: Normal motion all extremities, no cyanosis, no edema. NEUROLOGIC: Alert and oriented, no acute motor or sensory deficits, no focal weakness, cranial nerves grossly intact. SKIN: No rash, no jaundice, no diaphoresis. Poor skin turgor. Multiple aged bruising over arms. Medical Decision & Procedures ER Provider Diagnostic Interpretation: X-ray as per my interpretation: CHEST X-RAY Diffuse bilateral congestive findings versus infiltrates, worse in the left lower lung. Laboratory Results 12/08/16 01:26 Red Blood Count 3.75, Mean Corpuscular Volume 94.1, Mean Corpuscular Hemoglobin 32.5, Mean Corpuscular Hemoglobin Concent 34.6, Mean Platelet Volume 11.1, Neutrophils (%) (Auto) 83.2, Lymphocytes (%) (Auto) 12.8, Monocytes (%) (Auto) 2.1, Eosinophils (%) (Auto) 1.0, Basophils (%) (Auto) 0.2, Neutrophils # (Auto) 10.73, Lymphocytes # (Auto) 1.65, Monocytes # (Auto) 0.27, Eosinophils # (Auto) 0.13, Basophils # (Auto) 0.02 12/08/16 01:26 Test 12/08/16 01:26 12/08/16 01:35 12/08/16 03:21 White Blood Count 12.89 K/uL (4.8-10.8) Red Blood Count 3.75 M/uL (4.7-6.1) Hemoglobin 12.2 g/dL (14.0-18.0) Hematocrit 35.3 % (42-52) Mean Corpuscular Volume 94.1 fL (80-100) Mean Corpuscular Hemoglobin 32.5 pg (25-34) Mean Corpuscular Hemoglobin Concent 34.6 g/dl (32-36) Platelet Count 125 K/uL (130-400) Mean Platelet Volume 11.1 fL (7.4-10.4) Neutrophils (%) (Auto) 83.2 % Lymphocytes (%) (Auto) 12.8 % Monocytes (%) (Auto) 2.1 % Eosinophils (%) (Auto) 1.0 % Basophils (%) (Auto) 0.2 % Neutrophils # (Auto) 10.73 K/uL (1.4-6.5) Lymphocytes # (Auto) 1.65 K/uL (1.2-3.4) Monocytes # (Auto) 0.27 K/uL (0.11-0.59) Eosinophils # (Auto) 0.13 K/uL (0-0.5) Basophils # (Auto) 0.02 K/uL (0-0.2) RDW Standard Deviation 55.3 fL (36.4-46.3) RDW Coefficient of Variation 16.0 % (11.5-14.5) Immature Granulocyte % (Auto) 0.7 % Immature Granulocyte # (Auto) 0.09 K/uL (0.00-0.02) Prothrombin Time 12.6 SECONDS (9.0-12.0) Prothromb Time International Ratio 1.2 (0.9-1.1) Anion Gap 5.0 mmol/L (3-11) Estimated GFR () 42.6 Estimated GFR (Non- 36.8 BUN/Creatinine Ratio 27.0 (10-20) Calcium Level 8.7 mg/dl (8.5-10.1) Magnesium Level 2.1 mg/dl (1.8-2.4) Total Bilirubin 1.0 mg/dl (0.2-1) Direct Bilirubin 0.3 mg/dl (0-0.2) Aspartate Amino Transf (AST/SGOT) 51 U/L (15-37) Alanine Aminotransferase (ALT/SGPT) 14 U/L (12-78) Alkaline Phosphatase 67 U/L (45-117) Total Creatine Kinase 42 U/L (39-308) Creatine Kinase MB 3.2 ng/ml (0.5-3.6) Creatine Kinase MB Ratio 7.6 (0-3.0) Troponin I 1.000 ng/ml (0-0.045) Pro-B-Type Natriuretic Peptide 38875 pg/ml (0-900) Total Protein 5.0 gm/dl (6.4-8.2) Albumin 2.2 gm/dl (3.4-5.0) Procalcitonin 0.84 ng/ml (0-0.5) Bedside Lactic Acid Venous 1.49 mmol/L (0.90-1.70) Laboratory results as reviewed by me. Medications Administered Medications (Trade) Dose Ordered Sig/Kathy Route Start Time Stop Time Status Last Admin Dose Admin Sodium Chloride 1,000 ml @ 999 mls/hr Q1H1M STAT IV 12/08/16 01:23 12/08/16 02:23 DC 12/08/16 01:34 999 MLS/HR Sodium Chloride 1,000 ml @ 999 mls/hr Q1H1M STAT IV 12/08/16 02:32 12/08/16 03:32 DC 12/08/16 02:32 999 MLS/HR Piperacillin Sod/ Tazobactam Sod (Zosyn Iv) 4.5 gm NOW STAT IV 12/08/16 02:36 12/08/16 02:38 DC 12/08/16 03:59 4.5 GM Methylprednisolone Sodium Succinate (Solu-Medrol IV) 40 mg STK-MED ONCE .ROUTE 12/08/16 04:07 12/08/16 04:08 DC 12/08/16 04:07 40 MG ECG Indication: SOB/dyspnea Rate (beats per minute): 142 Rhythm: sinus tachycardia Findings: PAC (multiple), other (Nonspecific ST changes throughout) ED Course 0117: The patient was evaluated in room B09. A complete history and physical exam was performed. 0123: Sodium Chloride 1000 ml @ 999 mls/hr IV 0232: Sodium Chloride 1000 ml @ 999 mls/hr IV. Upon reevaluation, the patient is resting comfortably. After receiving the initial liter of fluid, he denies any worsening shortness of breath. His blood pressure has improved. Discussed results and treatment plan with the patient. He verbalized understanding and agreement with the treatment plan. The patient will be evaluated for further management. 0236: Vancomycin HCl 2100 mg/Sodium Chloride 542 ml @ 200 mls/hr IV, Zosyn IV 4.5 gm IV 0309: I discussed the patient's case with Dr. Tran, from [facility] Service. I reevaluated the patient who currently feels comfortable. His heart rate is in the one-teens. He is breathing comfortably. Medical Decision Differential: Infectious, Reactive Airway Disease, Pneumonia, Pneumothorax, COPD , CHF, ACS, Pulmonary Embolism, MSK, GI, Dissection, amongst other etiologies entertained. 71 yr old male arrives for evaluation of shortness of breath in setting of positive blood cultures, recent pneumonia diagnosis and hypoxia. Recently Dc from hospital following NSTEMI, then developed PNA and started on Levaquin 48 hours ago. Worsening overnight. He is tachycardic, hypotensive and hypoxic on arrival. Afebrile with normal Lactic acid. Known positive blood culture ( though could be false positive), but with symptoms felt treating aggressively as sepsis clearly indicated. Given 1 L initially which he tolerated well thus further fluids given. BP improved and HR coming down. Review chart notes this is where his vitals tend to run on last admission. EF last time good but there was not that his lasix was recently held thus some concern of not wanting to overdue fluids. Given empiric abx with zosyn/vanc as possible hospital acquired source. Seems likely this is all PNA related though I suspect there is component of underlying CHF possible thus with leveling of vitals felt further fluids would be contraindicated. Exam not consistent with COPD nor PE at this time. Will bring in to hospitalist for further evaluation/treatment/ management. Medication Reconcilliation Current Medication List: was personally reviewed by me Blood Pressure Screening Patient's blood pressure: Low blood pressure Consults Time Called: [phone] Consulting Physician: Dr. Tran, from [facility] Returned Call: 030 I discussed the patient's case with Dr. Tran, from [facility] Service. Impression Primary Impression: Sepsis Additional Impressions: Bilateral pneumonia Hypoxia Critical Care I have personally spent greater than 45 minutes of critical care time in the direct management of this patient. This includes bedside care, interpretation of diagnostic studies, and testing, discussion with consultants, patient, and family members, and other required patient management activities. This 45 minutes is in excess of all separately billable procedures. Scribe Attestation The scribe's documentation has been prepared under my direction and personally reviewed by me in its entirety. I confirm that the note above accurately reflects all work, treatment, procedures, and medical decision making performed by me. Departure Information Dispostion Being Evaluated By Hospitalist Referrals JosephineKristen (PCP) Problem Qualifiers
[2016-12-08 01:45] LABS: BASO % 0.2 %; BASO ABS # 0.02 K/uL (0-0.2); COMPLETE YES; HEMATOCRIT 35.3 % (42-52); IG% 0.7 %; LYMPH % 12.8 %; LYMPH ABS # 1.65 K/uL (1.2-3.4); MEAN CELL VOLUME 94.1 fL (80-100); MEAN CORPUSCULAR HEMOGLOBIN 32.5 pg (25-34); MEAN CORPUSCULAR HGB CONC 34.6 g/dl (32-36); MEAN PLATELET VOLUME 11.1 fL (7.4-10.4); MONO % 2.1 %; NEUT % 83.2 %; PLATELET COUNT 125 K/uL (130-400); RED BLOOD COUNT 3.75 M/uL (4.7-6.1); WHITE BLOOD COUNT 12.89 K/uL (4.8-10.8)
[2016-12-08 01:59] LABS: INR 1.2 (0.9-1.1); PROTHROMBIN TIME (PATIENT) 12.6 SECONDS (9.0-12.0)
[2016-12-08 02:01] LABS: ALT/SGPT 14 U/L (12-78); AST/SGOT 51 U/L (15-37); BLOOD UREA NITROGEN 49 mg/dl (7-18); CALCIUM 8.7 mg/dl (8.5-10.1); CARBON DIOXIDE 28 mmol/L (21-32); CHLORIDE 101 mmol/L (98-107); GLUCOSE 73 mg/dl (70-99); MAGNESIUM 2.1 mg/dl (1.8-2.4); POTASSIUM 5.1 mmol/L (3.5-5.1); SODIUM 134 mmol/L (136-145)
[2016-12-08 02:20] LABS: ALKALINE PHOSPHATASE 67 U/L (45-117); CKMB/CK RATIO 7.6 (0-3.0)
[2016-12-08] MEDS ORDERED: VANCOMYCIN INJ 2,100 MG in SODIUM CHLORIDE 0.9% 500ML 500 ML IV STA (02:36)
[2016-12-08] MEDS ORDERED: PIPERACILLIN/TAZOBACTAM 4.5 GM/100ML D5W IV STA (02:36)
[2016-12-08] MEDS ORDERED: IPRASOL4 INH (02:48)
[2016-12-08] MEDS ORDERED: MAGIC1 PO (02:50)
[2016-12-08] MEDS ORDERED: LEVO-17 PO (02:55)
[2016-12-08] MEDS ORDERED: ACET-1311 PO (02:57)
[2016-12-08] MEDS ORDERED: POLY335019 PO (02:58)
[2016-12-08] MEDS ORDERED: LEVALBUTEROL/IPRATROPIUM NEB INH STA (03:23)
[2016-12-08] MEDS ORDERED: LEVALBUTEROL/IPRATROPIUM NEB INH PRN (03:30)
[2016-12-08] MEDS ORDERED: METHYLPREDNISOLONE IV 40 MG in SYRINGE 0 ML IV ONE (03:30)
[2016-12-08] MEDS ORDERED: LEVALBUTEROL 1.25MG/0.5ML NEB INH STA (04:36)
[2016-12-08] MEDS ORDERED: IPRATROPIUM BROMIDE NEB SOLN 0.02% 2.5 ML VIAL INH STA (04:36)
[2016-12-08] MEDS ORDERED: ONDANSETRON INJ 2 MG/ML 2 ML VIAL IV PRN (04:45)
[2016-12-08] MEDS ORDERED: HYDROmorphone INJ 0.5 MG/0.5 ML SYR IV PRN (04:45)
[2016-12-08] MEDS ORDERED: NITROGLYCERIN 0.4 MG SL PER TAB CHARGE SL PRN (04:45)
[2016-12-08] MEDS ORDERED: LEVALBUTEROL 1.25MG/0.5ML NEB INH PRN (04:45)
[2016-12-08] MEDS ORDERED: IPRATROPIUM BROMIDE NEB SOLN 0.02% 2.5 ML VIAL INH PRN (04:45)
[2016-12-08] MEDS ORDERED: PIPERACILL/TAZOBAC CONSULT ACTIVE PRN (05:00)
--- NOTE | 2016-12-08 05:16 | History and Physical ---
History & Physical Date & Time of Service: Dec 08, 2016 at 05:16 Chief Complaint: Sob/ [facility] Primary Care Physician: Dr. Pradeep Mayer History of Present Illness Source: patient, spouse, hospital records Recent confinement last week for generalized weakness. Patient also found to have an acute lower extremity DVT. IVC filter placed as patient was deemed not to be a good candidate for activation. Patient discharged to [facility] for rehabilitation. As per patient's , patient noted to be coughing the last few days, breathing a little labored. Patient denies aspiration. Patient denies chest pain. Outpatient chest x-ray showed bilateral bronchopneumonia. Patient started on Levaquin. Patient brought to the emergency room with worsening symptoms. Noted to be hypotensive and febrile. Patient received normal saline, Tylenol Vanco and Zosyn at the emergency room for sepsis. Past Medical/Surgical History Medical Problems: (1) AAA (abdominal aortic aneurysm) Status: Chronic (2) CAD (coronary artery disease) Status: Chronic (3) maxillary sinus CA status post surgery Status: Resolved (4) History of DVT (deep vein thrombosis) Permanent Comment: [place] filter placed as pt had just had subdural hemorrhage Status: Resolved (5) History of subdural hemorrhage Permanent Comment: 1993; residual L sided weakness Status: Resolved (6) Hyperlipidemia Status: Chronic Renal cell carcinoma left with bone metastases status post left nephrectomy, chemoradiation Surgical Problems: (1) History of inguinal hernia repair Status: Resolved (2) History of sinus surgery Permanent Comment: removal of R eye as well as R ethmoid sinus Status: Resolved Nephrectomy Craniotomy for subdural hematoma Family History FH: heart disease FHx: cancer Hypertension Social History Smoking Status: Former Smoker Alcohol Use: none Drug Use: none Marital Status: Housing status: other (currently undergoing rehabilitation at [facility]) Occupational Status: retired Multi-Drug Resistant Organisms History of MDRO: No Allergies Coded Allergies: Sulfamethoxazole w/Trimethoprim (Verified Allergy, Unknown, Hives, 11/28/16 ) Home Medications Scheduled Ascorbic Acid (Vitamin C), 1,000 MG PO DAILY Aspirin (Aspirin Ec), 81 MG PO DAILY Atorvastatin (Atorvastatin Calcium), 40 MG PO DAILY Cholecalciferol (Vitamin D3), 1,000 UNIT PO DAILY Cyanocobalamin (Vitamin B-12), 1,000 MCG PO DAILY Denosumab (Xgeva), 120 MCG INJ MONTHLY Diphenhy/Alum/Mag/Sucralfa (Magic Swizzle - Diphenhy/Alum/Mag/Sucralfa), 1 TSP PO Q8 Folic Acid (Folvite), 1 MG PO DAILY Ipratropium-Albuterol (Duoneb), 1 TREATMENT INH Q6H Levofloxacin (Levaquin), 250 MG PO DAILY Metoprolol Succinate (Metoprolol Succinate ER), 25 MG PO DAILY [place]-3 Fatty Acids (Fish Oil 1200 mg), 1 CAP PO DAILY Omeprazole (Prilosec), 20 MG PO DAILY Prednisone (Prednisone), 50 MG PO DAILY Scheduled PRN Acetaminophen (Tylenol), 650 MG PO Q6H PRN for MILD PAIN Aluminum/Magnesium/Simeth (Mag-Al Plus Xs 400-400-40 mg/5Ml), 15 ML PO Q4H PRN for Dyspepsia Benzocaine (Hurricaine), 1 APPLN MT Q6 PRN for mouth sore Nitroglycerin (Nitrostat), 0.4 MG UT UD PRN for Chest Pain Polyethylene Glycol 3350 (Miralax), 17 GM PO DAILY PRN for Constipation Review of Systems As per history of present illness, all other ROS negative. Physical Exam Vital Signs Date Time Temp Pulse Resp B/P (MAP) Pulse Ox O2 Delivery O2 Flow Rate FiO2 12/08/16 04:46 105 31 93 Mask 7.0 12/08/16 04:16 103 34 92 Mask 7.0 12/08/16 04:01 90/53 12/08/16 03:46 120 28 93 Mask 7.0 12/08/16 03:16 119 36 95 Mask 7.0 12/08/16 03:11 116 33 94 Mask 7.0 12/08/16 03:01 100/53 12/08/16 02:42 93 Mask 7.0 12/08/16 02:41 127 31 87 Nasal Cannula 5.0 12/08/16 02:11 99 33 94 Nasal Cannula 5.0 12/08/16 02:01 116/60 12/08/16 01:41 137 31 12/08/16 01:41 135 32 100/56 94 Nasal Cannula 5.0 12/08/16 01:15 88 Room Air 12/08/16 01:15 37.2 140 33 90/53 92 Nasal Cannula 5.0 General Appearance: + pertinent finding (respiratory distress) Head: + pertinent finding (dressing covering the right orbit) Eyes: + pertinent finding (pale palpebral conjunctiva on the left) ENT: + pertinent finding Neck: supple (Jasmyne mucosa) Respiratory/Chest: + respiratory distress, + pertinent finding (occasional wheeze) Cardiovascular: + tachycardia Abdomen/GI: soft Extremities/Musculoskelatal: non-tender, + pertinent finding (left lower extremity swelling greater than the right) Neurologic/Psych: + pertinent finding (coherent) Skin: + pallor Diagnostics Laboratory Results Results Past 24 Hours Test 12/08/16 01:26 12/08/16 01:35 12/08/16 03:21 Range/Units White Blood Count 12.89 4.8-10.8 K/uL Red Blood Count 3.75 4.7-6.1 M/uL Hemoglobin 12.2 14.0-18.0 g/dL Hematocrit 35.3 42-52 % Mean Corpuscular Volume 94.1 80-100 fL Mean Corpuscular Hemoglobin 32.5 25-34 pg Mean Corpuscular Hemoglobin Concent 34.6 32-36 g/dl Platelet Count 125 130-400 K/uL Mean Platelet Volume 11.1 7.4-10.4 fL Neutrophils (%) (Auto) 83.2 % Lymphocytes (%) (Auto) 12.8 % Monocytes (%) (Auto) 2.1 % Eosinophils (%) (Auto) 1.0 % Basophils (%) (Auto) 0.2 % Neutrophils # (Auto) 10.73 1.4-6.5 K/uL Lymphocytes # (Auto) 1.65 1.2-3.4 K/uL Monocytes # (Auto) 0.27 0.11-0.59 K/uL Eosinophils # (Auto) 0.13 0-0.5 K/uL Basophils # (Auto) 0.02 0-0.2 K/uL RDW Standard Deviation 55.3 36.4-46.3 fL RDW Coefficient of Variation 16.0 11.5-14.5 % Immature Granulocyte % (Auto) 0.7 % Immature Granulocyte # (Auto) 0.09 0.00-0.02 K/uL Prothrombin Time 12.6 9.0-12.0 SECONDS Prothromb Time International Ratio 1.2 0.9-1.1 Sodium Level 134 136-145 mmol/L Potassium Level 5.1 3.5-5.1 mmol/L Chloride Level 101 98-107 mmol/L Carbon Dioxide Level 28 21-32 mmol/L Anion Gap 5.0 3-11 mmol/L Blood Urea Nitrogen 49 7-18 mg/dl Creatinine 1.80 0.60-1.40 mg/dl Estimated GFR () 42.6 Estimated GFR (Non- 36.8 BUN/Creatinine Ratio 27.0 10-20 Random Glucose 73 70-99 mg/dl Calcium Level 8.7 8.5-10.1 mg/dl Magnesium Level 2.1 1.8-2.4 mg/dl Total Bilirubin 1.0 0.2-1 mg/dl Direct Bilirubin 0.3 0-0.2 mg/dl Aspartate Amino Transf (AST/SGOT) 51 15-37 U/L Alanine Aminotransferase (ALT/SGPT) 14 12-78 U/L Alkaline Phosphatase 67 45-117 U/L Total Creatine Kinase 42 39-308 U/L Creatine Kinase MB 3.2 0.5-3.6 ng/ml Creatine Kinase MB Ratio 7.6 0-3.0 Troponin I 1.000 0-0.045 ng/ml Pro-B-Type Natriuretic Peptide 31894 0-900 pg/ml Total Protein 5.0 6.4-8.2 gm/dl Albumin 2.2 3.4-5.0 gm/dl Procalcitonin 0.84 0-0.5 ng/ml Bedside Lactic Acid Venous 1.49 0.90-1.70 mmol/L Microbiology Results 12/08/16 Blood Culture, Received Pending 12/08/16 Blood Culture, Received Pending Diagnostic Radiology Bilateral infiltrates as per my interpretation EKG As per my interpretation: Rate 140 sinus tachycardia, downsloping ST depression in lateral leads Impression Assessment and Plan AP Acute hypoxemic respiratory failure secondary to healthcare associated pneumonia Immunocompromised patient, chronic steroid therapy for autoimmune hemolytic anemia Gram-positive bacteremia on initial blood cultures Hypotension, mild hyponatremia, borderline hyperkalemia ? Question adrenal insufficiency, history chronic steroid therapy Troponin elevation secondary to demand ischemia Metastatic L renal cell carcinoma status post surgery, chemoradiation (2015); chemotherapy currently on hold secondary to poor functional status History of maxillary sinus cancer status post surgery, radiation () Chronic diastolic heart failure, patient on the dry side CAD/PVD as per records Chronic anemia, hemoglobin is baseline Chronic thrombocytopenia CRI, creatinine at baseline History recent DVT status post IVC filter placement, patient not a candidate for anti-coagulation Past tobacco abuse PCU Supplemental O2 Baseline ABG Cultures, Vanco and Zosyn Nebs RTC, prn Solu-Medrol 1 dose for wheezing Continue home prednisone Low threshold for initiation of parenteral steroids for possible adrenal insufficiency if hypotension persists IVF Follow troponin DVT prophylaxis SCDs Re: Thrombocytopenia Full code as per patient Total critical care time was 45 minutes. VTE Prophylaxis VTE Risk Assessment Done? Y/N: Yes Risk Level: High
[2016-12-08 05:27] LABS: ARTERIAL BLD GAS O2 SATURATION 89.9 % (90-95); ARTERIAL BLOOD GAS BASE EXCESS -2.5 mEq/L (-9-1.8); ARTERIAL BLOOD GAS HCO3 21 mmol/L (19-24); ARTERIAL BLOOD GAS PO2 58 mm/Hg (80-95); ARTERIAL BLOOD GAS pH 7.47 (7.35-7.45)
[2016-12-08 05:28] LABS: ALLEN TEST POS (POS); O2 ADMINISTRATION 7L
[2016-12-08] MEDS ORDERED: ACETAMINOPHEN 325 MG TAB PO ONE (06:00)
[2016-12-08] MEDS: IPRATROPIUM BROMIDE NEB SOLN 0.02% 2.5 ML VIAL INH SCH ×3 (06:53→19:17)
[2016-12-08] MEDS: LEVALBUTEROL 1.25MG/0.5ML NEB INH SCH ×3 (06:54→19:17)
[2016-12-08] MEDS ORDERED: POLYETHYLENE (MIRALAX) 17 GM PACK PO PRN (07:00)
[2016-12-08 07:56] LABS: BUN/CREATININE RATIO 27.5 (10-20); CALCIUM 7.9 mg/dl (8.5-10.1); CREATININE 1.7 mg/dl (0.60-1.40); POTASSIUM 4.7 mmol/L (3.5-5.1)
[2016-12-08] MEDS: PANTOprazole SOD 40 MG TAB PO SCH (08:20)
[2016-12-08] MEDS: ASPIRIN 81 MG ECTAB PO SCH (08:20)
[2016-12-08] MEDS: METOPROLOL SUCC 25MG EXT REL TAB PO SCH ×2 (08:21→08:28)
[2016-12-08] MEDS: ATORVASTATIN 40 MG TAB PO SCH (08:21)
[2016-12-08] MEDS ORDERED: LEVALBUTEROL/IPRATROPIUM NEB INH SCH (09:00)
[2016-12-08] MEDS ORDERED: VANCOMYCIN CONSULT ACTIVE PRN (09:00)
--- NOTE | 2016-12-08 09:24 | DIAGNOSTIC IMAGING REPORT ---
CHEST ONE VIEW PORTABLE CLINICAL HISTORY: Fever and shortness of breath. COMPARISON STUDY: Chest radiograph December 02, 2016. FINDINGS: There is no pneumothorax or pleural effusion. Right basilar consolidation has increased. Multifocal airspace opacities within the left lung have increased. Cardiomediastinal silhouette is stable. IMPRESSION: Bilateral airspace opacities which have significantly progressed since prior exam. The findings favor extensive multifocal pneumonia. Pulmonary edema could appear similar. Radiographic follow up is recommended. Electronically signed by: Naren Hodges M.D. 12/08/2016 9:23 AM Dictated Date/Time: 12/08/2016 9:22 AM
[2016-12-08] MEDS: PIPERACILL/TAZOBAC IV 3.375 GM in DEXTROSE 5% 100ML IV SCH ×2 (10:05→17:28)
--- NOTE | 2016-12-08 10:16 | Pharmacy Progress Note ---
Pharmacy Abx Initial Consult Date of Service Dec 08, 2016. Pharmacy Dosing Scope Date of Consult: 12/08/16 Consultation requested by: Dr. Tran Pharmacy is consulted to initiate Vancomycin and Zosyn IV/PO dosing therapy, order appropriate labs and adjust drug dose/frequency. Subjective The patient is a 71 year old male admitted on Dec 08, 2016 at 03:56. Objective Height (Feet): 6 Height (Inches): 2.00 Weight (Kilograms): 82.000 Vital Signs (Past 12Hrs) Vital Signs Past 12 Hours Date Time Temp Pulse Resp B/P (MAP) Pulse Ox O2 Delivery O2 Flow Rate FiO2 12/08/16 08:28 111 94/55 (68) 12/08/16 08:01 36.8 106 24 90/58 (69) 92 Oxymask 8.0 12/08/16 06:54 77 20 93 Mask 8.0 12/08/16 06:15 37.0 112 34 93/64 92 Mask 8.0 12/08/16 05:30 37.6 121 36 109/46 96 Mask 7.0 12/08/16 05:19 118 34 93/56 92 Nebulizer 7.0 12/08/16 05:15 115 26 95 Mask 7.0 12/08/16 04:46 105 31 93 Mask 7.0 12/08/16 04:16 103 34 92 Mask 7.0 12/08/16 04:01 90/53 12/08/16 03:46 120 28 93 Mask 7.0 12/08/16 03:16 119 36 95 Mask 7.0 12/08/16 03:11 116 33 94 Mask 7.0 12/08/16 03:01 100/53 12/08/16 02:42 93 Mask 7.0 12/08/16 02:41 127 31 87 Nasal Cannula 5.0 12/08/16 02:11 99 33 94 Nasal Cannula 5.0 12/08/16 02:01 116/60 12/08/16 01:41 137 31 12/08/16 01:41 135 32 100/56 94 Nasal Cannula 5.0 12/08/16 01:15 88 Room Air 12/08/16 01:15 37.2 140 33 90/53 92 Nasal Cannula 5.0 Lab Results (24Hrs) Laboratory Tests (24 Hours) Test 12/08/16 01:26 White Blood Count 12.89 K/uL (4.8-10.8) H Red Blood Count 3.75 M/uL (4.7-6.1) L Hemoglobin 12.2 g/dL (14.0-18.0) L Hematocrit 35.3 % (42-52) L Mean Corpuscular Volume 94.1 fL (80-100) Mean Corpuscular Hemoglobin 32.5 pg (25-34) Mean Corpuscular Hemoglobin Concent 34.6 g/dl (32-36) Platelet Count 125 K/uL (130-400) L Mean Platelet Volume 11.1 fL (7.4-10.4) H Neutrophils (%) (Auto) 83.2 % Lymphocytes (%) (Auto) 12.8 % Monocytes (%) (Auto) 2.1 % Eosinophils (%) (Auto) 1.0 % Basophils (%) (Auto) 0.2 % Neutrophils # (Auto) 10.73 K/uL (1.4-6.5) H Lymphocytes # (Auto) 1.65 K/uL (1.2-3.4) Monocytes # (Auto) 0.27 K/uL (0.11-0.59) Eosinophils # (Auto) 0.13 K/uL (0-0.5) Basophils # (Auto) 0.02 K/uL (0-0.2) Procalcitonin 0.84 ng/ml (0-0.5) H Total Creatine Kinase 42 U/L (39-308) Micro Results Date/Time Source Procedure Growth Status 12/08/16 01:26 Blood Blood Culture Pending Received 12/08/16 01:20 Blood Blood Culture Pending Received Risk Factors for Resistance * Recent discharge to SNF for rehab * Hospitalization for 48 hours or more within the past 90 days * Immunocompromised (chronic steroid therapy) * Antimicrobial use within the last 90 days for MSSA bacteremia Assessment & Plan Assessment 71 year old male admitted with sepsis likely secondary to pneumonia. 1/2 BC resulted gram positive cocci on 12/06. * Repeat BC pending * + Leukocytosis and elevated procalcitonin * Multiple recent hospital admissions, recent treatment for MSSA bacteremia * h/o CKD - Scr currently at baseline Plan Vancomycin and Zosyn for treatment of sepsis/pna Vancomycin IV * Loading dose: 2100 mg (25.7 mg/kg) * Maintenance dose: 1250 mg IV (15 mg/kg) every 18 hours * Goal trough level for sepsis/pna : 15 to 20 mcg/mL * Trough level ordered for 12/10/16 Piperacillin/tazobactam * 4.5 g bolus administered over 30 minutes, then 3.375 g IV extended infusion every 8 hours for CrCl greater than 20 mL/min Pharmacy will continue to follow and will adjust dose/frequency as necessary. Thank you.
[2016-12-08] MEDS: TRAMADOL HCL 50 MG TAB PO PRN (10:47)
--- NOTE | 2016-12-08 11:25 | Progress Note ---
Subjective Date of Service: Dec 08, 2016. Subjective Pt evaluation today including: conversation w/ patient, physical exam, lab review, review of studies, review of inpatient medication list Saw/examined the patient in room 280 +weak, lethargic +shortness of breath +lack of appetite +fevers/chills c/o sores in his mouth Problem List Medical Problems: (1) Acute on chronic renal failure Status: Acute (2) Anemia Status: Acute (3) Anemia Status: Acute (4) Bilateral pneumonia Status: Acute (5) CAD (coronary artery disease) Status: Chronic (6) Cardiac ischemia Status: Acute (7) Elevated troponin Status: Acute (8) Elevated troponin Status: Acute (9) Frequent falls Status: Acute (10) Hematuria Status: Acute (11) Hematuria of undiagnosed cause Status: Acute (12) Hypoxia Status: Acute (13) Sepsis Status: Acute (14) Thrombocytopenia Status: Acute (15) Weakness Status: Acute (16) Weakness Status: Acute Review of Systems Constitutional: + fever, + chills, + weakness, + fatigue, + problem reported ( decreased appetite) Eyes: No worsening of vision ENT: No hearing loss Respiratory: + shortness of breath, No cough, No sputum, No wheezing, No dyspnea on exertion, No dyspnea at rest, No hemoptysis Cardiac: No chest pain, No edema, No palpitations Abdomen: No pain, No nausea, No vomiting, No diarrhea, No constipation, No GI bleeding Male : No dysuria, No urinary frequency Psychiatric: No depression symptoms Heme: No abnormal bleeding/bruising Endo: + fatigue Medications Current Inpatient Medications Medications (Trade) Dose Ordered Sig/Kathy Route Start Time Stop Time Status Last Admin Dose Admin Acetaminophen (Tylenol Tab) 650 mg Q4H PRN PO 12/08/16 04:45 01/07/17 04:44 Nitroglycerin (Nitrostat Tab) 0.4 mg UD PRN SL 12/08/16 04:45 01/07/17 04:44 Hydromorphone HCl (Dilaudid Inj) 0.5 mg Q3H PRN IV 12/08/16 04:45 12/22/16 04:44 Tramadol HCl (Ultram Tab) 25 mg Q6H PRN PO 12/08/16 04:45 01/07/17 04:44 12/08/16 10:47 25 MG Ondansetron HCl (Zofran Inj) 4 mg Q6H PRN IV 12/08/16 04:45 01/07/17 04:44 Vancomycin HCl (Consult) 1 ea UD PRN N/A 12/08/16 09:00 01/07/17 08:59 Aspirin (Ecotrin Tab) 81 mg DAILY PO 12/08/16 09:00 01/07/17 08:59 12/08/16 08:20 81 MG Atorvastatin Calcium (Lipitor Tab) 40 mg DAILY PO 12/08/16 09:00 01/07/17 08:59 12/08/16 08:21 40 MG Folic Acid (Folvite Tab) 1 mg DAILY PO 12/08/16 09:00 01/07/17 08:59 12/08/16 08:21 1 MG Prednisone (PredniSONE TAB) 50 mg DAILY PO 12/08/16 09:00 01/07/17 08:59 12/08/16 08:20 50 MG Pantoprazole Sodium (Protonix Tab) 40 mg QAM PO 12/08/16 09:00 01/07/17 08:59 12/08/16 08:20 40 MG Polyethylene (Miralax Powder Packet) 17 gm DAILY PRN PO 12/08/16 07:00 01/07/17 06:59 Metoprolol Succinate (Toprol Xl Tab) 12.5 mg QAM PO 12/08/16 09:00 01/07/17 08:59 Ipratropium [place] (Atrovent 0.02% 0.5MG/2.5ML Neb) 0.5 mg Q6R INH 12/08/16 09:00 01/07/17 08:59 12/08/16 06:53 0.5 MG Levalbuterol (Xopenex 1.25MG/ 0.5ML Neb) 1.25 mg Q6R INH 12/08/16 09:00 01/07/17 08:59 12/08/16 06:54 1.25 MG Ipratropium [place] (Atrovent 0.02% 0.5MG/2.5ML Neb) 0.5 mg Q4H PRN INH 12/08/16 04:45 01/07/17 04:44 Levalbuterol (Xopenex 1.25MG/ 0.5ML Neb) 1.25 mg Q4H PRN INH 12/08/16 04:45 01/07/17 04:44 Piperacillin Sod/ Tazobactam Sod (Consult) 1 ea UD PRN N/A 12/08/16 05:00 01/07/17 04:59 Piperacillin Sod/ Tazobactam Sod 3.375 gm/Dextrose 115 ml @ 28.75 mls/ hr Q8H IV 12/08/16 10:00 12/15/16 09:59 12/08/16 10:05 28.75 MLS/HR Vancomycin HCl 1250 mg/Sodium Chloride 275 ml @ 125 mls/hr Q18H IV 12/08/16 22:00 12/15/16 04:59 Objective Vital Signs Date Time Temp Pulse Resp B/P (MAP) Pulse Ox O2 Delivery O2 Flow Rate FiO2 12/08/16 08:28 111 94/55 (68) 12/08/16 08:01 36.8 106 24 90/58 (69) 92 Oxymask 8.0 12/08/16 06:54 77 20 93 Mask 8.0 12/08/16 06:15 37.0 112 34 93/64 92 Mask 8.0 12/08/16 05:30 37.6 121 36 109/46 96 Mask 7.0 12/08/16 05:19 118 34 93/56 92 Nebulizer 7.0 12/08/16 05:15 115 26 95 Mask 7.0 12/08/16 04:46 105 31 93 Mask 7.0 12/08/16 04:16 103 34 92 Mask 7.0 12/08/16 04:01 90/53 12/08/16 03:46 120 28 93 Mask 7.0 12/08/16 03:16 119 36 95 Mask 7.0 12/08/16 03:11 116 33 94 Mask 7.0 12/08/16 03:01 100/53 12/08/16 02:42 93 Mask 7.0 12/08/16 02:41 127 31 87 Nasal Cannula 5.0 12/08/16 02:11 99 33 94 Nasal Cannula 5.0 12/08/16 02:01 116/60 12/08/16 01:41 137 31 12/08/16 01:41 135 32 100/56 94 Nasal Cannula 5.0 12/08/16 01:15 88 Room Air 12/08/16 01:15 37.2 140 33 90/53 92 Nasal Cannula 5.0 Physical Exam General Appearance: + mild distress, + pertinent finding (lethargic, tired, weak) ENT: + pertinent finding (+oral sores, lip sores) Respiratory/Chest: chest non-tender, lungs clear, normal breath sounds, no respiratory distress, no accessory muscle use Cardiovascular: no edema, no gallop, no JVD, no murmur, + tachycardia (regular rhythm) Abdomen: normal bowel sounds, non tender, soft Extremities: normal inspection, no pedal edema Neurologic/Psychiatric: no motor/sensory deficits, alert, oriented x 3, + pertinent finding (alert, weak, tired, lethargic, oriented x3) Laboratory Results Last 24 Hours Test 12/08/16 01:26 12/08/16 01:35 12/08/16 05:18 12/08/16 07:06 White Blood Count 12.89 K/uL Red Blood Count 3.75 M/uL Hemoglobin 12.2 g/dL Hematocrit 35.3 % Mean Corpuscular Volume 94.1 fL Mean Corpuscular Hemoglobin 32.5 pg Mean Corpuscular Hemoglobin Concent 34.6 g/dl Platelet Count 125 K/uL Mean Platelet Volume 11.1 fL Neutrophils (%) (Auto) 83.2 % Lymphocytes (%) (Auto) 12.8 % Monocytes (%) (Auto) 2.1 % Eosinophils (%) (Auto) 1.0 % Basophils (%) (Auto) 0.2 % Neutrophils # (Auto) 10.73 K/uL Lymphocytes # (Auto) 1.65 K/uL Monocytes # (Auto) 0.27 K/uL Eosinophils # (Auto) 0.13 K/uL Basophils # (Auto) 0.02 K/uL RDW Standard Deviation 55.3 fL RDW Coefficient of Variation 16.0 % Immature Granulocyte % (Auto) 0.7 % Immature Granulocyte # (Auto) 0.09 K/uL Prothrombin Time 12.6 SECONDS Prothromb Time International Ratio 1.2 Sodium Level 134 mmol/L 134 mmol/L Potassium Level 5.1 mmol/L 4.7 mmol/L Chloride Level 101 mmol/L 104 mmol/L Carbon Dioxide Level 28 mmol/L 22 mmol/L Anion Gap 5.0 mmol/L 8.0 mmol/L Blood Urea Nitrogen 49 mg/dl 47 mg/dl Creatinine 1.80 mg/dl 1.70 mg/dl Estimated GFR () 42.6 45.7 Estimated GFR (Non- 36.8 39.4 BUN/Creatinine Ratio 27.0 27.5 Random Glucose 73 mg/dl 84 mg/dl Calcium Level 8.7 mg/dl 7.9 mg/dl Magnesium Level 2.1 mg/dl Total Bilirubin 1.0 mg/dl Direct Bilirubin 0.3 mg/dl Aspartate Amino Transf (AST/SGOT) 51 U/L Alanine Aminotransferase (ALT/SGPT) 14 U/L Alkaline Phosphatase 67 U/L Total Creatine Kinase 42 U/L Creatine Kinase MB 3.2 ng/ml Creatine Kinase MB Ratio 7.6 Troponin I 1.000 ng/ml 0.777 ng/ml Pro-B-Type Natriuretic Peptide 94292 pg/ml Total Protein 5.0 gm/dl Albumin 2.2 gm/dl Procalcitonin 0.84 ng/ml Bedside Lactic Acid Venous 1.49 mmol/L Arterial Blood pH 7.47 Arterial Blood Partial Pressure CO2 29 mmHg Arterial Blood Partial Pressure O2 58 mm/Hg Arterial Blood HCO3 21 mmol/L Arterial Blood Oxygen Saturation 89.9 % Arterial Blood Base Excess -2.5 mEq/L Arterial Blood Gas Delivery 7L Duong Test POS Est Creatinine Clear Calc Drug Dose 45.6 ml/min Assessment and Plan This is a 71 year old male with a complex medical history including 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 with fevers, lethargy, +bacteremia, shortness of breath Acute Hypoxemic Respiratory Failure likely secondary to pneumonia ABGs obtained, pH and CO2 look good, decreased O2 had fevers on December 06; had blood cultures obtained - gram positive cocci grown thus far multiple hospital admissions recently on abx. recently taken off of Lasix due to normalization of EF will give one time dose of low dose Lasix monitor breathing status and wean O2 accordingly HCAP Health care associated pneumonia numerous admissions recently, coming from [facility] CXR Bilateral airspace opacities which have significantly progressed since prior exam. The findings favor extensive multifocal pneumonia. Pulmonary edema could appear similar. Radiographic follow up is recommended. started on Zosyn + Vancomycin will add Levaquin no lactic acidemia, monitor Gram Positive Cocci Bacteremia likely secondary to pneumonia numerous hospital stays, so now on Vancomycin recheck blood cultures, await further speciation Elevated Troponin patient with recent NSTEMI in September 2016 denies chest pain presented with significant tachycardia, sinus in nature secondary to sepsis, infection HRs improving now trend cardiac enzymes, monitor in tele, check EKG continue aspirin, b-christina, statin Generalized Weakness possibly related to long-stay at [place] last month will need PT/OT which have been ordered discharge planning - will likely need placement electrolytes, TSH wnl Hgb stable plan for d/c to [facility] today for rehab Cardiomyopathy Systolic CHF echo shows EF of ~65%, cardiomyopathy resolved will give one dose of low dose Lasix monitor CKD stage 3-4 hx. of renal cell carcinoma s/p nephrectomy creatinine is around baseline of 1.9-2.0 given IVFs in the ER; hold off on further hydration due to systolic CHF one dose of Lasix Autoimmune Hemolytic Anemia patient follows with hematology; was just seen by hematology on November 28 prednisone tapered down to 50mg daily, which we will continue monitor H/H DVT ppx SCDs: recent retroperitoneal hemorrhage at [place]; thrombocytopenia DNR - after discussion with patient
[2016-12-08] MEDS ORDERED: FUROSEMIDE 20 MG TAB PO ONE (11:30)
[2016-12-08] MEDS: LEVOFLOXACIN 500 MG TAB PO SCH (12:28)
[2016-12-08] MEDS ORDERED: MAGIC SWIZZLE PO SCH (14:00)
[2016-12-08] MEDS: LIDOCAINE HCL 2% VISCOUS SOLN 60 ML, DiphenhydrAMINE HCL SYRUP 150 MG, ALUMINUM/MAGNESI... MT SCH ×8 (16:30→21:34)
[2016-12-08 17:17] LABS: CKMB/CK RATIO 9.8 (0-3.0)
[2016-12-08] MEDS: ACETAMINOPHEN 325 MG TAB PO PRN (18:40)
[2016-12-08] MEDS: VANCOMYCIN INJ 1,250 MG in SODIUM CHLORIDE 0.9% 250ML 250 ML IV SCH (21:59)
[2016-12-08 23:33] LABS: CKMB/CK RATIO 11.8 (0-3.0)
[2016-12-09] VITALS (11 sets, daily range): BP systolic 90–115; BP diastolic 52–66; PULSE 81–102; TEMP 36.3–36.8; O2SAT 90–98
[2016-12-09] MEDS: PIPERACILL/TAZOBAC IV 3.375 GM in DEXTROSE 5% 100ML IV SCH ×3 (01:54→18:26)
[2016-12-09] MEDS: LEVALBUTEROL 1.25MG/0.5ML NEB INH SCH ×4 (01:55→19:15)
[2016-12-09] MEDS: IPRATROPIUM BROMIDE NEB SOLN 0.02% 2.5 ML VIAL INH SCH ×4 (01:55→19:15)
[2016-12-09 05:16] LABS: HEMATOCRIT 28.1 % (42-52); MEAN CELL VOLUME 92.4 fL (80-100); MEAN CORPUSCULAR HEMOGLOBIN 32.2 pg (25-34); MEAN CORPUSCULAR HGB CONC 34.9 g/dl (32-36); RED BLOOD COUNT 3.04 M/uL (4.7-6.1); WHITE BLOOD COUNT 15.99 K/uL (4.8-10.8)
[2016-12-09 05:41] LABS: BASO % 0.1 %; BASO ABS # 0.01 K/uL (0-0.2); COMPLETE YES; EOS % 0.1 %; IG% 0.7 %; LYMPH % 4.1 %; LYMPH ABS # 0.66 K/uL (1.2-3.4); MEAN PLATELET VOLUME 10.9 fL (7.4-10.4); MONO % 1.4 %; NEUT % 93.6 %; PLATELET COUNT 94 K/uL (130-400); PLT ESTIMATE DECREASED
[2016-12-09 05:48] LABS: BUN/CREATININE RATIO 28.8 (10-20); CALCIUM 7.5 mg/dl (8.5-10.1); CREATININE 1.8 mg/dl (0.60-1.40); POTASSIUM 4.6 mmol/L (3.5-5.1)
[2016-12-09 06:02] LABS: CKMB/CK RATIO 15.6 (0-3.0)
[2016-12-09] MEDS: METOPROLOL SUCC 25MG EXT REL TAB PO SCH (08:24)
[2016-12-09] MEDS: ASPIRIN 81 MG ECTAB PO SCH (08:25)
[2016-12-09] MEDS: ATORVASTATIN 40 MG TAB PO SCH (08:25)
[2016-12-09] MEDS: LIDOCAINE HCL 2% VISCOUS SOLN 60 ML, DiphenhydrAMINE HCL SYRUP 150 MG, ALUMINUM/MAGNESI... MT SCH ×16 (08:34→20:47)
[2016-12-09] MEDS: PANTOprazole SOD 40 MG TAB PO SCH (08:34)
--- NOTE | 2016-12-09 09:32 | Progress Note ---
Subjective Date of Service: Dec 09, 2016. Subjective Pt evaluation today including: conversation w/ patient, physical exam, lab review, review of studies, review of inpatient medication list Saw/examined the patient in room 280 +weakness feeling better after bowel movement +breathing issues continue Problem List Medical Problems: (1) Acute on chronic renal failure Status: Acute (2) Anemia Status: Acute (3) Anemia Status: Acute (4) Bilateral pneumonia Status: Acute (5) CAD (coronary artery disease) Status: Chronic (6) Cardiac ischemia Status: Acute (7) Elevated troponin Status: Acute (8) Elevated troponin Status: Acute (9) Frequent falls Status: Acute (10) Hematuria Status: Acute (11) Hematuria of undiagnosed cause Status: Acute (12) Hypoxia Status: Acute (13) Sepsis Status: Acute (14) Thrombocytopenia Status: Acute (15) Weakness Status: Acute (16) Weakness Status: Acute Review of Systems Constitutional: No fever, No chills Respiratory: + cough, + shortness of breath, No sputum, No wheezing, No dyspnea on exertion Cardiac: No chest pain, No edema, No palpitations Abdomen: No pain, No nausea, No vomiting, No diarrhea Heme: No abnormal bleeding/bruising Medications Current Inpatient Medications Medications (Trade) Dose Ordered Sig/Kathy Route Start Time Stop Time Status Last Admin Dose Admin Acetaminophen (Tylenol Tab) 650 mg Q4H PRN PO 12/08/16 04:45 01/07/17 04:44 12/08/16 18:40 650 MG Nitroglycerin (Nitrostat Tab) 0.4 mg UD PRN SL 12/08/16 04:45 01/07/17 04:44 Hydromorphone HCl (Dilaudid Inj) 0.5 mg Q3H PRN IV 12/08/16 04:45 12/22/16 04:44 Tramadol HCl (Ultram Tab) 25 mg Q6H PRN PO 12/08/16 04:45 01/07/17 04:44 12/08/16 10:47 25 MG Ondansetron HCl (Zofran Inj) 4 mg Q6H PRN IV 12/08/16 04:45 01/07/17 04:44 Vancomycin HCl (Consult) 1 ea UD PRN N/A 12/08/16 09:00 01/07/17 08:59 Aspirin (Ecotrin Tab) 81 mg DAILY PO 12/08/16 09:00 01/07/17 08:59 12/09/16 08:25 81 MG Atorvastatin Calcium (Lipitor Tab) 40 mg DAILY PO 12/08/16 09:00 01/07/17 08:59 12/09/16 08:25 40 MG Folic Acid (Folvite Tab) 1 mg DAILY PO 12/08/16 09:00 01/07/17 08:59 12/09/16 08:25 1 MG Prednisone (PredniSONE TAB) 50 mg DAILY PO 12/08/16 09:00 01/07/17 08:59 12/09/16 08:25 50 MG Pantoprazole Sodium (Protonix Tab) 40 mg QAM PO 12/08/16 09:00 01/07/17 08:59 12/09/16 08:34 40 MG Polyethylene (Miralax Powder Packet) 17 gm DAILY PRN PO 12/08/16 07:00 01/07/17 06:59 Metoprolol Succinate (Toprol Xl Tab) 12.5 mg QAM PO 12/08/16 09:00 01/07/17 08:59 Ipratropium [place] (Atrovent 0.02% 0.5MG/2.5ML Neb) 0.5 mg Q6R INH 12/08/16 09:00 01/07/17 08:59 12/09/16 07:18 0.5 MG Levalbuterol (Xopenex 1.25MG/ 0.5ML Neb) 1.25 mg Q6R INH 12/08/16 09:00 01/07/17 08:59 12/09/16 07:18 1.25 MG Ipratropium [place] (Atrovent 0.02% 0.5MG/2.5ML Neb) 0.5 mg Q4H PRN INH 12/08/16 04:45 01/07/17 04:44 Levalbuterol (Xopenex 1.25MG/ 0.5ML Neb) 1.25 mg Q4H PRN INH 12/08/16 04:45 01/07/17 04:44 Piperacillin Sod/ Tazobactam Sod (Consult) 1 ea UD PRN N/A 12/08/16 05:00 01/07/17 04:59 Piperacillin Sod/ Tazobactam Sod 3.375 gm/Dextrose 115 ml @ 28.75 mls/ hr Q8H IV 12/08/16 10:00 12/15/16 09:59 12/09/16 01:54 28.75 MLS/HR Vancomycin HCl 1250 mg/Sodium Chloride 275 ml @ 125 mls/hr Q18H IV 12/08/16 22:00 12/15/16 04:59 12/08/16 21:59 125 MLS/HR Levofloxacin (Levaquin Tab) 500 mg DAILY@11 PO 12/08/16 11:00 12/15/16 10:59 12/08/16 12:28 500 MG Lidocaine HCl/ Diphenhydramine HCl/Al Hydroxide/ Mg Hydroxide/ Glycerin/Barcode TID MT 12/08/16 14:00 01/07/17 13:59 12/09/16 08:34 5 ML Objective Vital Signs Date Time Temp Pulse Resp B/P (MAP) Pulse Ox O2 Delivery O2 Flow Rate FiO2 12/09/16 07:29 36.3 86 20 96/59 (71) 90 Mask 8.0 12/09/16 07:18 86 16 90 Mask 8.0 12/09/16 04:15 36.7 84 20 92/63 (73) 95 Oxymask 8.0 12/09/16 04:00 Oxymask 8.0 12/09/16 01:55 82 16 94 Mask 8.0 12/09/16 00:00 Oxymask 8.0 12/08/16 23:45 36.7 83 20 92/53 (66) 93 Oxymask 8.0 12/08/16 20:00 Oxymask 8.0 12/08/16 19:59 91/56 (68) 12/08/16 19:55 36.4 84 20 81/53 (62) 98 Oxymask 8.0 12/08/16 19:17 94 18 95 Mask 8.0 12/08/16 16:00 Mask 8.0 12/08/16 13:57 87 20 94 Mask 8.0 12/08/16 12:00 Mask 8.0 12/08/16 11:00 36.4 96 22 95/60 (72) 91 Oxymask 8.0 Nasal Cannula Physical Exam General Appearance: no apparent distress, + pertinent finding (+weak, ill- appearing, elderly) Eyes: + pertinent finding (R eye bandage) Respiratory/Chest: chest non-tender, lungs clear, normal breath sounds, no respiratory distress, no accessory muscle use Cardiovascular: no edema, no gallop, no JVD, no murmur, + tachycardia Extremities: normal inspection, no pedal edema Neurologic/Psychiatric: no motor/sensory deficits, alert, normal mood/affect Laboratory Results Last 24 Hours Test 12/08/16 16:39 12/08/16 22:51 12/09/16 05:08 Total Creatine Kinase 55 U/L 51 U/L 55 U/L Creatine Kinase MB 5.4 ng/ml 6.0 ng/ml 8.6 ng/ml Creatine Kinase MB Ratio 9.8 11.8 15.6 Troponin I 0.410 ng/ml 0.333 ng/ml 0.274 ng/ml White Blood Count 15.99 K/uL Red Blood Count 3.04 M/uL Hemoglobin 9.8 g/dL Hematocrit 28.1 % Mean Corpuscular Volume 92.4 fL Mean Corpuscular Hemoglobin 32.2 pg Mean Corpuscular Hemoglobin Concent 34.9 g/dl Platelet Count 94 K/uL Mean Platelet Volume 10.9 fL Neutrophils (%) (Auto) 93.6 % Lymphocytes (%) (Auto) 4.1 % Monocytes (%) (Auto) 1.4 % Eosinophils (%) (Auto) 0.1 % Basophils (%) (Auto) 0.1 % Neutrophils # (Auto) 14.97 K/uL Lymphocytes # (Auto) 0.66 K/uL Monocytes # (Auto) 0.23 K/uL Eosinophils # (Auto) 0.01 K/uL Basophils # (Auto) 0.01 K/uL RDW Standard Deviation 52.7 fL RDW Coefficient of Variation 15.6 % Immature Granulocyte % (Auto) 0.7 % Immature Granulocyte # (Auto) 0.11 K/uL Platelet Estimate DECREASED Sodium Level 135 mmol/L Potassium Level 4.6 mmol/L Chloride Level 104 mmol/L Carbon Dioxide Level 22 mmol/L Anion Gap 9.0 mmol/L Blood Urea Nitrogen 52 mg/dl Creatinine 1.80 mg/dl Est Creatinine Clear Calc Drug Dose 43.0 ml/min Estimated GFR () 42.6 Estimated GFR (Non- 36.8 BUN/Creatinine Ratio 28.8 Random Glucose 124 mg/dl Calcium Level 7.5 mg/dl Assessment and Plan This is a 71 year old male with a complex medical history including 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, recent NSTEMI in September 2016, recent DVT of upper extremity, recent retroperitoneal hemorrhage - was at [facility] from December 02 to December 04 due to weakness - now coming from [facility] with fevers, lethargy, +bacteremia, shortness of breath Acute Hypoxemic Respiratory Failure 12/09 currently on facemask, continue this for now and wean as tolerated if no improvement, will check another ABG check CXR in AM 12/08 likely secondary to pneumonia ABGs obtained, pH and CO2 look good, decreased O2 had fevers on December 06; had blood cultures obtained - gram positive cocci grown thus far multiple hospital admissions recently on abx. recently taken off of Lasix due to normalization of EF will give one time dose of low dose Lasix monitor breathing status and wean O2 accordingly HCAP 12/09 for now continue Vanco, Levaquin, Zosyn cultures from 12/06 grew coag neg staph will check CXR in AM check CBC in AM adjust antibiotics accordingly 12/08 Health care associated pneumonia numerous admissions recently, coming from [facility] CXR Bilateral airspace opacities which have significantly progressed since prior exam. The findings favor extensive multifocal pneumonia. Pulmonary edema could appear similar. Radiographic follow up is recommended. started on Zosyn + Vancomycin will add Levaquin no lactic acidemia, monitor Gram Positive Cocci Bacteremia likely secondary to pneumonia numerous hospital stays, so now on Vancomycin Coag Negative Staph x1 Elevated Troponin patient with recent NSTEMI in September 2016 denies chest pain presented with significant tachycardia, sinus in nature secondary to sepsis, infection HRs improving now trend cardiac enzymes, monitor in tele, check EKG continue aspirin, b-christina, statin Generalized Weakness possibly related to long-stay at [place] last month will need PT/OT which have been ordered discharge planning - will likely need placement electrolytes, TSH wnl Hgb stable plan for d/c to [facility] today for rehab Cardiomyopathy Systolic CHF echo shows EF of ~65%, cardiomyopathy resolved will give one dose of low dose Lasix monitor CKD stage 3-4 hx. of renal cell carcinoma s/p nephrectomy creatinine is around baseline of 1.9-2.0 given IVFs in the ER; hold off on further hydration due to systolic CHF one dose of Lasix Autoimmune Hemolytic Anemia patient follows with hematology; was just seen by hematology on November 28 prednisone tapered down to 50mg daily, which we will continue monitor H/H DVT ppx SCDs: recent retroperitoneal hemorrhage at [place]; thrombocytopenia DNR - after discussion with patient
[2016-12-09] MEDS: LEVOFLOXACIN 500 MG TAB PO SCH (11:24)
[2016-12-09 11:30] LABS: CKMB/CK RATIO 16.1 (0-3.0)
[2016-12-09] MEDS ORDERED: MAGIC SWIZZLE PO SCH (13:00)
[2016-12-09] MEDS: VANCOMYCIN INJ 1,250 MG in SODIUM CHLORIDE 0.9% 250ML 250 ML IV SCH (15:49)
[2016-12-10] VITALS (14 sets, daily range): BP systolic 93–126; BP diastolic 49–81; PULSE 88–132; TEMP 36.3–37.1; O2SAT 87–94
[2016-12-10] MEDS: LEVALBUTEROL 1.25MG/0.5ML NEB INH SCH ×4 (02:00→19:27)
[2016-12-10] MEDS: IPRATROPIUM BROMIDE NEB SOLN 0.02% 2.5 ML VIAL INH SCH ×4 (02:00→19:27)
[2016-12-10] MEDS: PIPERACILL/TAZOBAC IV 3.375 GM in DEXTROSE 5% 100ML IV SCH ×3 (02:11→18:13)
[2016-12-10] MEDS: TRAMADOL HCL 50 MG TAB PO PRN (03:16)
[2016-12-10] MEDS ORDERED: METOPROLOL TARTRATE 1 MG/ML VIAL IV STA ×2 (03:37→04:56)
[2016-12-10] MEDS ORDERED: METOPROLOL TARTRATE 1 MG/ML VIAL ONE ×2 (03:47→05:55)
[2016-12-10] MEDS ORDERED: FUROSEMIDE INJ 60 MG in SYRINGE 0 ML IV STA (04:10)
[2016-12-10 04:33] LABS: BASO % 0.1 %; BASO ABS # 0.01 K/uL (0-0.2); COMPLETE YES; EOS % 0.1 %; IG% 0.7 %; LYMPH % 4.9 %; LYMPH ABS # 0.85 K/uL (1.2-3.4); MEAN CELL VOLUME 91.9 fL (80-100); MEAN CORPUSCULAR HEMOGLOBIN 32.6 pg (25-34); MEAN CORPUSCULAR HGB CONC 35.5 g/dl (32-36); MEAN PLATELET VOLUME 11.4 fL (7.4-10.4); MONO % 1.2 %; PLATELET COUNT 137 K/uL (130-400); RED BLOOD COUNT 3.59 M/uL (4.7-6.1); WHITE BLOOD COUNT 17.22 K/uL (4.8-10.8)
[2016-12-10 04:34] LABS: ALLEN TEST POS (POS); ARTERIAL BLD GAS O2 SATURATION 87.8 % (90-95); ARTERIAL BLOOD GAS BASE EXCESS -3.7 mEq/L (-9-1.8); ARTERIAL BLOOD GAS HCO3 19 mmol/L (19-24); ARTERIAL BLOOD GAS PO2 52 mm/Hg (80-95); ARTERIAL BLOOD GAS pH 7.49 (7.35-7.45); O2 ADMINISTRATION 8 L
[2016-12-10 04:43] LABS: BUN/CREATININE RATIO 24.4 (10-20); CALCIUM 7.7 mg/dl (8.5-10.1); CREATININE 1.9 mg/dl (0.60-1.40); MAGNESIUM 2.3 mg/dl (1.8-2.4); POTASSIUM 5.4 mmol/L (3.5-5.1)
[2016-12-10] MEDS ORDERED: DEXTROSE 50% 50 ML SYR IV ONE (05:00)
[2016-12-10] MEDS ORDERED: METHYLPREDNISOLONE IV 40 MG in SYRINGE 0 ML IV STA (05:09)
[2016-12-10] MEDS ORDERED: DEXTROSE 50% 50 ML SYR ONE (05:38)
[2016-12-10] MEDS ORDERED: METOPROLOL SUCC 25MG EXT REL TAB PO ONE (06:13)
--- NOTE | 2016-12-10 06:45 | DIAGNOSTIC IMAGING REPORT ---
CHEST ONE VIEW PORTABLE HISTORY: 71 years-old Male acute respiratory distress COMPARISON: Chest radiograph 12/08/2016 TECHNIQUE: Portable upright AP view of the chest FINDINGS: Cardiac silhouette is upper limits of normal. There is atherosclerosis of the aorta. There is no pneumothorax. Multifocal multilobar distribution of alveolar opacities are present, most severe throughout the left lung right lung base with relative preservation of the right upper lobe. Disease has progressed throughout the left upper lobe. There is blunting of the right costophrenic angle suggesting trace pleural effusion. There is mild prominence of the pulmonary vascularity. The bones appear grossly intact. IMPRESSION: Progressive multifocal multilobar distribution of alveolar opacities, notably within the left upper lobe suggesting pneumonia. Pulmonary edema can have a similar appearance. Follow-up imaging is recommended. The above report was generated using voice recognition software. It may contain grammatical, syntax or spelling errors. Electronically signed by: Audi Phipps M.D. 12/10/2016 6:44 AM Dictated Date/Time: 12/10/2016 6:42 AM
[2016-12-10] MEDS: ASPIRIN 81 MG ECTAB PO SCH (07:48)
[2016-12-10] MEDS: PANTOprazole SOD 40 MG TAB PO SCH (07:48)
[2016-12-10] MEDS: ATORVASTATIN 40 MG TAB PO SCH (07:48)
[2016-12-10] MEDS: LIDOCAINE HCL 2% VISCOUS SOLN 60 ML, DiphenhydrAMINE HCL SYRUP 150 MG, ALUMINUM/MAGNESI... MT SCH ×16 (07:49→21:39)
[2016-12-10] MEDS ORDERED: VANCOMYCIN TROUGH SCH (09:30)
[2016-12-10] MEDS: VANCOMYCIN INJ 1,250 MG in SODIUM CHLORIDE 0.9% 250ML 250 ML IV SCH (09:42)
[2016-12-10] MEDS: LEVOFLOXACIN 500 MG TAB PO SCH (10:20)
--- NOTE | 2016-12-10 11:50 | Progress Note ---
Subjective Date of Service: Dec 10, 2016. Subjective Pt evaluation today including: conversation w/ patient, physical exam, lab review, review of studies, review of inpatient medication list Saw/examined the patient in room 280 Doing better today, clinically improved, no longer weak no cough/shortness of breath Problem List Medical Problems: (1) Acute on chronic renal failure Status: Acute (2) Anemia Status: Acute (3) Anemia Status: Acute (4) Bilateral pneumonia Status: Acute (5) CAD (coronary artery disease) Status: Chronic (6) Cardiac ischemia Status: Acute (7) Elevated troponin Status: Acute (8) Elevated troponin Status: Acute (9) Frequent falls Status: Acute (10) Hematuria Status: Acute (11) Hematuria of undiagnosed cause Status: Acute (12) Hypoxia Status: Acute (13) Sepsis Status: Acute (14) Thrombocytopenia Status: Acute (15) Weakness Status: Acute (16) Weakness Status: Acute Review of Systems Constitutional: + weakness, No fever, No chills Respiratory: No cough, No sputum, No shortness of breath Cardiac: No chest pain, No edema, No palpitations Abdomen: No pain, No nausea, No vomiting, No diarrhea Musculoskeletal: No joint pain Medications Current Inpatient Medications Medications (Trade) Dose Ordered Sig/Kathy Route Start Time Stop Time Status Last Admin Dose Admin Acetaminophen (Tylenol Tab) 650 mg Q4H PRN PO 12/08/16 04:45 01/07/17 04:44 12/08/16 18:40 650 MG Nitroglycerin (Nitrostat Tab) 0.4 mg UD PRN SL 12/08/16 04:45 01/07/17 04:44 Hydromorphone HCl (Dilaudid Inj) 0.5 mg Q3H PRN IV 12/08/16 04:45 12/22/16 04:44 Tramadol HCl (Ultram Tab) 25 mg Q6H PRN PO 12/08/16 04:45 01/07/17 04:44 12/10/16 03:16 25 MG Ondansetron HCl (Zofran Inj) 4 mg Q6H PRN IV 12/08/16 04:45 01/07/17 04:44 Vancomycin HCl (Consult) 1 ea UD PRN N/A 12/08/16 09:00 01/07/17 08:59 Aspirin (Ecotrin Tab) 81 mg DAILY PO 12/08/16 09:00 01/07/17 08:59 12/10/16 07:48 81 MG Atorvastatin Calcium (Lipitor Tab) 40 mg DAILY PO 12/08/16 09:00 01/07/17 08:59 12/10/16 07:48 40 MG Folic Acid (Folvite Tab) 1 mg DAILY PO 12/08/16 09:00 01/07/17 08:59 12/10/16 07:48 1 MG Pantoprazole Sodium (Protonix Tab) 40 mg QAM PO 12/08/16 09:00 01/07/17 08:59 12/10/16 07:48 40 MG Polyethylene (Miralax Powder Packet) 17 gm DAILY PRN PO 12/08/16 07:00 01/07/17 06:59 Ipratropium [place] (Atrovent 0.02% 0.5MG/2.5ML Neb) 0.5 mg Q6R INH 12/08/16 09:00 01/07/17 08:59 12/10/16 07:02 0.5 MG Levalbuterol (Xopenex 1.25MG/ 0.5ML Neb) 1.25 mg Q6R INH 12/08/16 09:00 01/07/17 08:59 12/10/16 07:02 1.25 MG Ipratropium [place] (Atrovent 0.02% 0.5MG/2.5ML Neb) 0.5 mg Q4H PRN INH 12/08/16 04:45 01/07/17 04:44 12/09/16 11:10 0.5 MG Levalbuterol (Xopenex 1.25MG/ 0.5ML Neb) 1.25 mg Q4H PRN INH 12/08/16 04:45 01/07/17 04:44 12/09/16 11:10 1.25 MG Piperacillin Sod/ Tazobactam Sod (Consult) 1 ea UD PRN N/A 12/08/16 05:00 01/07/17 04:59 Piperacillin Sod/ Tazobactam Sod 3.375 gm/Dextrose 115 ml @ 28.75 mls/ hr Q8H IV 12/08/16 10:00 12/15/16 09:59 12/10/16 09:42 28.75 MLS/HR Vancomycin HCl 1250 mg/Sodium Chloride 275 ml @ 125 mls/hr Q18H IV 12/08/16 22:00 12/15/16 04:59 12/10/16 09:42 125 MLS/HR Levofloxacin (Levaquin Tab) 500 mg DAILY@11 PO 12/08/16 11:00 12/15/16 10:59 12/10/16 10:20 500 MG Lidocaine HCl/ Diphenhydramine HCl/Al Hydroxide/ Mg Hydroxide/ Glycerin/Barcode QID MT 12/09/16 13:00 01/08/17 12:59 12/10/16 07:49 5 ML Prednisone (PredniSONE TAB) 50 mg DAILY PO 12/11/16 09:00 01/07/17 08:59 Metoprolol Succinate (Toprol Xl Tab) 12.5 mg QAM PO 12/11/16 09:00 01/07/17 08:59 Enteral Nutritional Formula (Boost) 1 can TIDM PO 12/10/16 12:00 01/09/17 11:59 UNV Objective Vital Signs Date Time Temp Pulse Resp B/P (MAP) Pulse Ox O2 Delivery O2 Flow Rate FiO2 12/10/16 11:08 36.8 103 16 95/63 (74) 87 Mask 8.0 12/10/16 08:00 Oxymask 8.0 12/10/16 07:22 36.5 131 24 95/60 (72) 90 Nasal Cannula 8.0 12/10/16 07:02 120 22 92 Mask 8.0 12/10/16 05:44 129 117/77 (90) 12/10/16 05:17 144 114/64 12/10/16 04:26 118 117/73 (88) 12/10/16 04:00 Oxymask 8.0 12/10/16 03:59 136 118/68 12/10/16 03:37 37.1 132 26 126/81 (96) 92 Oxymask 8.0 12/10/16 02:00 110 22 94 Mask 8.0 12/10/16 00:00 Oxymask 7.0 12/09/16 23:29 36.7 90 20 96/64 (75) 96 Oxymask 7.0 12/09/16 20:07 36.8 102 20 115/66 (82) 93 Oxymask 7.0 12/09/16 20:00 Oxymask 7.0 12/09/16 19:15 86 18 92 Mask 8.0 12/09/16 16:00 Oxymask 8.0 12/09/16 15:20 36.4 95 20 90/52 (65) 98 Oxymask 8.0 12/09/16 14:08 86 16 90 Mask 8.0 12/09/16 12:00 Oxymask 8.0 Physical Exam General Appearance: no apparent distress, + pertinent finding (+weak) Respiratory/Chest: lungs clear, normal breath sounds, no respiratory distress, no accessory muscle use Cardiovascular: regular rate, rhythm, no edema, no murmur Neurologic/Psychiatric: no motor/sensory deficits, alert, normal mood/affect Laboratory Results Last 24 Hours Test 12/10/16 03:54 12/10/16 04:24 12/10/16 04:58 12/10/16 05:55 White Blood Count 17.22 K/uL Red Blood Count 3.59 M/uL Hemoglobin 11.7 g/dL Hematocrit 33.0 % Mean Corpuscular Volume 91.9 fL Mean Corpuscular Hemoglobin 32.6 pg Mean Corpuscular Hemoglobin Concent 35.5 g/dl Platelet Count 137 K/uL Mean Platelet Volume 11.4 fL Neutrophils (%) (Auto) 93.0 % Lymphocytes (%) (Auto) 4.9 % Monocytes (%) (Auto) 1.2 % Eosinophils (%) (Auto) 0.1 % Basophils (%) (Auto) 0.1 % Neutrophils # (Auto) 16.03 K/uL Lymphocytes # (Auto) 0.85 K/uL Monocytes # (Auto) 0.20 K/uL Eosinophils # (Auto) 0.01 K/uL Basophils # (Auto) 0.01 K/uL RDW Standard Deviation 52.6 fL RDW Coefficient of Variation 15.6 % Immature Granulocyte % (Auto) 0.7 % Immature Granulocyte # (Auto) 0.12 K/uL Sodium Level 136 mmol/L Potassium Level 5.4 mmol/L Chloride Level 105 mmol/L Carbon Dioxide Level 21 mmol/L Anion Gap 10.0 mmol/L Blood Urea Nitrogen 46 mg/dl Creatinine 1.90 mg/dl Est Creatinine Clear Calc Drug Dose 40.8 ml/min Estimated GFR () 39.9 Estimated GFR (Non- 34.5 BUN/Creatinine Ratio 24.4 Random Glucose 61 mg/dl Calcium Level 7.7 mg/dl Magnesium Level 2.3 mg/dl Chemistry Specimen Hemolysis Arterial Blood pH 7.49 Arterial Blood Partial Pressure CO2 25 mmHg Arterial Blood Partial Pressure O2 52 mm/Hg Arterial Blood HCO3 19 mmol/L Arterial Blood Oxygen Saturation 87.8 % Arterial Blood Base Excess -3.7 mEq/L Arterial Blood Gas Delivery 8 L Duong Test POS Bedside Glucose 61 mg/dl 87 mg/dl Test 12/10/16 09:49 Potassium Level 4.7 mmol/L Vancomycin Level Trough 24.3 mcg/ml Assessment and Plan This is a 71 year old male with a complex medical history including 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, recent NSTEMI in September 2016, recent DVT of upper extremity, recent retroperitoneal hemorrhage - was at [facility] from December 02 to December 04 due to weakness - now coming from [facility] with fevers, lethargy, +bacteremia, shortness of breath Acute Hypoxemic Respiratory Failure 12/10 wean O2 as tolerated feeling better CXR similar to previous, repeat in 1-2 days 12/09 currently on facemask, continue this for now and wean as tolerated if no improvement, will check another ABG check CXR in AM 12/08 likely secondary to pneumonia ABGs obtained, pH and CO2 look good, decreased O2 had fevers on December 06; had blood cultures obtained - gram positive cocci grown thus far multiple hospital admissions recently on abx. recently taken off of Lasix due to normalization of EF will give one time dose of low dose Lasix monitor breathing status and wean O2 accordingly HCAP 12/10 will d/c Vanco continue Zosyn + Levaquin for now repeat CXR in a few days clinically improved WBC elevated, though on high dose steroids due to autoimmune hemolytic anemia 12/09 for now continue Vanco, Levaquin, Zosyn cultures from 12/06 grew coag neg staph will check CXR in AM check CBC in AM adjust antibiotics accordingly 12/08 Health care associated pneumonia numerous admissions recently, coming from [facility] CXR Bilateral airspace opacities which have significantly progressed since prior exam. The findings favor extensive multifocal pneumonia. Pulmonary edema could appear similar. Radiographic follow up is recommended. started on Zosyn + Vancomycin will add Levaquin no lactic acidemia, monitor Gram Positive Cocci Bacteremia likely secondary to pneumonia numerous hospital stays, so now on Vancomycin Coag Negative Staph x1 Autoimmune Hemolytic Anemia patient follows with hematology spoke with Dr. Carter, will cut the prednisone to 40mg on 12/11, if Hgb stable, cut by 10mg per week Elevated Troponin patient with recent NSTEMI in September 2016 denies chest pain presented with significant tachycardia, sinus in nature secondary to sepsis, infection HRs improving now trend cardiac enzymes, monitor in tele, check EKG continue aspirin, b-christina, statin Generalized Weakness possibly related to long-stay at [place] last month will need PT/OT which have been ordered discharge planning - will likely need placement electrolytes, TSH wnl Hgb stable plan for d/c to [facility] [place] [facility] today for rehab Cardiomyopathy Systolic CHF echo shows EF of ~65%, cardiomyopathy resolved will give one dose of low dose Lasix monitor CKD stage 3-4 hx. of renal cell carcinoma s/p nephrectomy creatinine is around baseline of 1.9-2.0 given IVFs in the ER; hold off on further hydration due to systolic CHF one dose of Lasix DVT ppx SCDs: recent retroperitoneal hemorrhage at [place]; thrombocytopenia DNR - after discussion with patient
[2016-12-10] MEDS: BOOST VANILLA PO SCH ×4 (12:00→18:12)
[2016-12-10] MEDS: ACETAMINOPHEN 325 MG TAB PO PRN (23:43)
[2016-12-11] VITALS (14 sets, daily range): BP systolic 93–127; BP diastolic 51–89; PULSE 68–150; TEMP 36.5–36.7; O2SAT 88–100
[2016-12-11] MEDS: LEVALBUTEROL 1.25MG/0.5ML NEB INH SCH ×4 (01:52→19:15)
[2016-12-11] MEDS: IPRATROPIUM BROMIDE NEB SOLN 0.02% 2.5 ML VIAL INH SCH ×4 (01:52→19:15)
[2016-12-11] MEDS: PIPERACILL/TAZOBAC IV 3.375 GM in DEXTROSE 5% 100ML IV SCH ×3 (02:30→17:32)
[2016-12-11 06:51] LABS: BLOOD UREA NITROGEN 47 mg/dl (7-18); BUN/CREATININE RATIO 24.5 (10-20); CARBON DIOXIDE 23 mmol/L (21-32); CHLORIDE 104 mmol/L (98-107); GLUCOSE 70 mg/dl (70-99); SODIUM 136 mmol/L (136-145)
[2016-12-11] MEDS: BOOST VANILLA PO SCH ×6 (08:00→16:52)
[2016-12-11] MEDS: ATORVASTATIN 40 MG TAB PO SCH (08:17)
[2016-12-11] MEDS: METOPROLOL SUCC 25MG EXT REL TAB PO SCH (08:17)
[2016-12-11] MEDS: ASPIRIN 81 MG ECTAB PO SCH (08:17)
[2016-12-11] MEDS: PANTOprazole SOD 40 MG TAB PO SCH (08:18)
[2016-12-11] MEDS: LIDOCAINE HCL 2% VISCOUS SOLN 60 ML, DiphenhydrAMINE HCL SYRUP 150 MG, ALUMINUM/MAGNESI... MT SCH ×16 (08:28→21:30)
[2016-12-11] MEDS ORDERED: LORAZEPAM 2 MG/ML 1 ML VIAL ONE (08:48)
[2016-12-11] MEDS ORDERED: LORAZEPAM 0.5 MG TAB PO PRN (09:00)
[2016-12-11] MEDS ORDERED: LORAZEPAM INJ 0.5 MG in SYRINGE 0.75 ML IV PRN (09:15)
--- NOTE | 2016-12-11 09:17 | Progress Note ---
Internal Med Progress Note Date of Service: Dec 11, 2016. Provider Documentation: SUBJECTIVE: pt found to be very tachycardic , tachypneic this AM -as he was OOB on toilet HR went up to 180's seen pt at bedside very anxious , complains of pain on left leg , hyperventilating lungs auscultation -normal breath sound , clear with occasional wheeze EKG shows sinus tach ordered for IV Dilaudid-pt mentions some improvement of symptom PRN Ativan ordered for anxiety OBJECTIVE: Vital Signs-as noted below Exam: General-anxious , in distress for SOB , left leg pain Eyes-has patch on rt eye s/p sinus surgery in past Neck-no JVD Lungs-adequate air flow , occasional wheeze Heart-regular tachycardic Abdomen-soft, non tender Extremities-tenderness on left lower ext Neuro-anxious , no focal deficit Lab data as noted below. 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, recent NSTEMI in September 2016, recent DVT of upper extremity, recent retroperitoneal hemorrhage - was at [facility] from December 02 to December 04 due to weakness - now coming from [facility] with fevers, lethargy, +bacteremia, shortness of breath Acute Hypoxemic Respiratory Failure due to Pneumonia -health care associated , Cxray shows diffuse left sided infiltrate on Levaquin and Zosyn became very tachypneic today -possible due to Pain and anxiety related cont supplement 02 and broad spectrum ABx no evidence of sepsis persisted leukocytosis -on chronic steroid LEFT LOWER EXT PAIN : has hematoma due to anticoagulation pt mentions of intractable pain ,worse with minimum activity increased current regimen of pain meds -Dilaudid 0.5 mg Q2 hrs PRN pain management consulted for further assistance Autoimmune Hemolytic Anemia patient follows with hematology spoke with Dr. Carter, will cut the prednisone to 40mg on 12/11, if Hgb stable, taper by 10mg per week Elevated Troponin patient with recent NSTEMI in September 2016 denies chest pain presented with significant tachycardia, sinus in nature continue aspirin, b-christina, statin Generalized Weakness possibly related to long-stay at [place] last month appreciate PT/OT eval will need rehab /SNF plan for d/c to [facility] for rehab-when medically stable Cardiomyopathy Systolic CHF echo shows EF of ~65%, cardiomyopathy resolved Lasix D/salima CKD stage 3-4 hx. of renal cell carcinoma s/p nephrectomy creatinine is around baseline of 1.9-2.0 DVT ppx SCDs: recent retroperitoneal hemorrhage at [place]; thrombocytopenia DNR - after discussion with patient DISPOSITION will need rehab referral made to [facility] Vital Signs: Date Time Temp Pulse Resp B/P (MAP) Pulse Ox O2 Delivery O2 Flow Rate FiO2 12/11/16 09:02 127/89 (102) 12/11/16 08:16 150 40 104/51 (68) 12/11/16 07:27 99 18 91 Mask 13.0 12/11/16 07:15 36.7 68 22 108/64 (79) 89 Oxymask 12.0 12/11/16 04:17 36.5 95 18 105/69 (81) 88 Oxymask 12.0 12/11/16 04:00 Oxymask 10.0 12/11/16 01:52 88 18 93 Mask 10.0 12/11/16 00:00 Oxymask 10.0 12/10/16 23:32 36.7 92 18 113/49 (70) 90 Oxymask 12.0 12/10/16 20:00 Oxymask 10.0 12/10/16 19:41 36.3 92 24 93/58 (70) 90 Nasal Cannula 10.0 12/10/16 19:27 88 18 92 Mask 10.0 12/10/16 16:00 90 Nasal Cannula 10.0 Mask 12/10/16 15:48 36.5 99 22 108/68 (81) 87 Mask 8.0 12/10/16 15:47 36.8 103 22 95/63 (74) 91 Mask 8.0 12/10/16 14:12 97 22 91 Mask 8.0 12/10/16 12:00 Oxymask 8.0 12/10/16 11:08 36.8 103 16 95/63 (74) 87 Mask 8.0 Lab Results: Results Past 24 Hours Test 12/10/16 09:49 12/11/16 05:46 12/11/16 07:10 Range/Units Potassium Level 4.7 4.9 3.5-5.1 mmol/L Vancomycin Level Trough 24.3 SEE COMMENT mcg/ml Sodium Level 136 136-145 mmol/L Chloride Level 104 98-107 mmol/L Carbon Dioxide Level 23 21-32 mmol/L Anion Gap 9.0 3-11 mmol/L Blood Urea Nitrogen 47 7-18 mg/dl Creatinine 1.90 0.60-1.40 mg/dl Est Creatinine Clear Calc Drug Dose 40.0 ml/min Estimated GFR () 39.9 Estimated GFR (Non- 34.5 BUN/Creatinine Ratio 24.5 10-20 Random Glucose 70 70-99 mg/dl Calcium Level 8.0 8.5-10.1 mg/dl
[2016-12-11] MEDS ORDERED: LORAZEPAM INJ 0.5 MG in SYRINGE 0.75 ML IV ONE (09:30)
--- NOTE | 2016-12-11 09:41 | Progress Note ---
Progress Note Date of Service Dec 11, 2016. Progress Note pt's Last admission updated regarding AM events over phone Lower ext Doppler showed -diffuse atherosclerotic plaque /left femoral artery aneurysm was seen by Dr Henderson in last visit follow up appointment was scheduled for 11/23/16 in office requesting for a vascular eval while in patient Dr henderson consulted
[2016-12-11] MEDS ORDERED: HYDROmorphone INJ 0.5 MG/0.5 ML SYR IV PRN (10:00)
[2016-12-11] MEDS ORDERED: TRAMADOL HCL 50 MG TAB PO PRN (10:45)
[2016-12-11] MEDS: LEVOFLOXACIN 500 MG TAB PO SCH (10:57)
--- NOTE | 2016-12-11 13:06 | DIAGNOSTIC IMAGING REPORT ---
CHEST ONE VIEW PORTABLE CLINICAL HISTORY: sob /pneumonia dyspnea COMPARISON STUDY: 12/10/2016 FINDINGS: Findings of pulmonary edema versus diffuse bilateral parenchymal infiltrative change considered similar as compared to the prior study. No evidence for significant cardiac enlargement. Upper right lung is considered generally clear. IMPRESSION: No change from the prior exam. Persistent bilateral parenchymal infiltrative change versus atypical pulmonary edema The above report was generated using voice recognition software. It may contain grammatical, syntax or spelling errors. Electronically signed by: Pradeep Lozoya M.D. 12/11/2016 1:04 PM Dictated Date/Time: 12/11/2016 12:52 PM
[2016-12-12] MEDS: PIPERACILL/TAZOBAC IV 3.375 GM in DEXTROSE 5% 100ML IV SCH ×2 (02:16→09:24)
[2016-12-12] MEDS: IPRATROPIUM BROMIDE NEB SOLN 0.02% 2.5 ML VIAL INH SCH ×2 (02:36→08:17)
[2016-12-12] MEDS: LEVALBUTEROL 1.25MG/0.5ML NEB INH SCH ×2 (02:36→08:18)
[2016-12-12 02:37] VITALS: PULSE 102; O2SAT 94
[2016-12-12 04:06] VITALS: BP 98/68; PULSE 59; TEMP 36.8; O2SAT 95
[2016-12-12] MEDS ORDERED: FUROSEMIDE INJ 80 MG in SYRINGE 0 ML IV STA (04:26)
[2016-12-12] MEDS: MoRPHine SULFATE 2 MG/ML CARP IV PRN ×5 (04:46→09:25)
[2016-12-12] MEDS: METOPROLOL TARTRATE 1 MG/ML VIAL IV PRN ×2 (04:51→06:18)
[2016-12-12 06:10] LABS: BASO ABS # 0.01 K/uL (0-0.2); COMPLETE YES; EOS % 0.1 %; HEMATOCRIT 34.8 % (42-52); IG% 1.2 %; LYMPH % 6.8 %; LYMPH ABS # 1.42 K/uL (1.2-3.4); MEAN CORPUSCULAR HEMOGLOBIN 33.2 pg (25-34); MEAN CORPUSCULAR HGB CONC 35.6 g/dl (32-36); MEAN PLATELET VOLUME 11.3 fL (7.4-10.4); MONO % 0.9 %; PLATELET COUNT 132 K/uL (130-400); RED BLOOD COUNT 3.74 M/uL (4.7-6.1); WHITE BLOOD COUNT 20.76 K/uL (4.8-10.8)
[2016-12-12] MEDS ORDERED: METOPROLOL TARTRATE 1 MG/ML VIAL IV ONE (06:30)
[2016-12-12 06:46] LABS: BUN/CREATININE RATIO 24.8 (10-20); CALCIUM 8.3 mg/dl (8.5-10.1); POTASSIUM 5.2 mmol/L (3.5-5.1)
[2016-12-12 07:10] VITALS: BP 99/62; PULSE 109; TEMP 36.7; O2SAT 97
[2016-12-12] MEDS: BOOST VANILLA PO SCH ×2 (08:00)
--- NOTE | 2016-12-12 08:07 | DIAGNOSTIC IMAGING REPORT ---
CHEST ONE VIEW PORTABLE CLINICAL HISTORY: SOB /CHF dyspnea COMPARISON STUDY: 12/11/2016 FINDINGS: Similar exam. Diffuse infiltrative change left hemithorax and right base. Upper right lung remains generally clear. IMPRESSION: No change compared to the prior exam. Diffuse left hemithoracic and right basilar infiltrate versus pulmonary edema. The above report was generated using voice recognition software. It may contain grammatical, syntax or spelling errors. Electronically signed by: Pradeep Lozoya M.D. 12/12/2016 8:06 AM Dictated Date/Time: 12/12/2016 8:04 AM
[2016-12-12] MEDS: METOPROLOL SUCC 25MG EXT REL TAB PO SCH (08:13)
[2016-12-12] MEDS: LIDOCAINE HCL 2% VISCOUS SOLN 60 ML, DiphenhydrAMINE HCL SYRUP 150 MG, ALUMINUM/MAGNESI... MT SCH ×4 (08:13)
[2016-12-12] MEDS: ATORVASTATIN 40 MG TAB PO SCH (08:13)
[2016-12-12] MEDS: PANTOprazole SOD 40 MG TAB PO SCH (08:13)
[2016-12-12] MEDS: ASPIRIN 81 MG ECTAB PO SCH (08:13)
[2016-12-12 08:20] VITALS: O2SAT 96
--- NOTE | 2016-12-12 08:27 | Progress Note ---
Internal Med Progress Note Date of Service: Dec 12, 2016. Provider Documentation: SUBJECTIVE: was very SOB , tachypneic last night ; complains of pain in hip and leg -given IV morphine with minimum improvement Cxay shows pulmonary congestion Lasix 80 mg IV ordered Douglas placed as pt developed urinary retention this AM pt is still very tachypneic RR 42 , tachycardic unable to tolerate getting head up of bed due to severe pain , confused in and out Cxray this AM shows persisted left sided diffuse infiltrate , and rt basilar infiltrate very poor prognosis decline in status Spoke with pt - Called Michelle -updated regarding pt's condition palliative care would be appropriate OBJECTIVE: Vital Signs-as noted below Exam: General-in distress, Eyes-has patch on rt eye s/p sinus surgery in past Neck-no JVD Lungs-adequate air flow , occasional wheeze Heart-regular tachycardic Abdomen-soft, non tender Extremities-tenderness on left lower ext Neuro-anxious , no focal deficit Lab data as noted below. 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, recent NSTEMI in September 2016, recent DVT of upper extremity, recent retroperitoneal hemorrhage - was at [facility] from December 02 to December 04 due to weakness - now coming from [facility] with fevers, lethargy, +bacteremia, shortness of breath Acute Hypoxemic Respiratory Failure due to Pneumonia -health care associated , Cxray shows diffuse left sided infiltrate on Levaquin and Zosyn continued to have decline in respiratory status very tachypneic and tachycardic no improvement of serial Cxray while being on broad spectrum Abx given Lasix yesterday for possible CHF getting IV morphine .5 mg Q 30 mins PRN for pain /discomfort pt appears to be comfortable after repeated IV morphine dose pt continues to have rapid decline in status D/w Pt at bedside -wants to be comfortable , does not want to medications just to keep him alive had repeated D/w -now present at bedside aware of the poor prognosis Did discuss the role for palliative care /comfort care -if all standard care of treatment can no be helpful other option would be doing more aggressive support for respiratory failure - Bipap ( relative contraindication is setting of sinus surgery ; D/w Respiratory therapy -may be able to do it given there will be chance for considerable air leaK ) possible Bronch mentioned does not want aggressive measures just want pt to be comfortable palliative care consult placed LEFT LOWER EXT PAIN : has hematoma due to anticoagulation pt mentions of intractable pain ,worse with minimum activity increased current regimen of pain meds -Dilaudid 0.5 mg Q2 hrs PRN pain management consulted -appreciate in put Per Dr Norwood -pt's current respiratory distress is not due to pain primary respiratory failure due to HCAP concerned regarding frequent dose of IV Morphine may compromise breathing drive but for if family and pt does not want aggressive treatment cont IV morphine for palliation of symptom and comfort would be appropriate updated Autoimmune Hemolytic Anemia patient follows with hematology Dr. Carter, prednisone to 40mg daily , if Hgb stable, taper by 10mg per week unable to take oral meds this Am due to respiratory distress , high risk for aspiration Elevated Troponin patient with recent NSTEMI in September 2016 denies chest pain presented with significant tachycardia, sinus tachycardiac Cardiomyopathy Systolic CHF echo shows EF of ~65%, given Lasix 80 mg IV for possible decompensated CHF causing respiratory distress Cardio eval requested case D/w Dr Valdez CKD stage 3-4 aurelio -due to Lasix -Cr elevated ~2 hx. of renal cell carcinoma s/p nephrectomy HYPERKALEMIA : Due to above on low k diet DVT ppx SCDs: recent retroperitoneal hemorrhage at [place]; thrombocytopenia DNR /DNI DISPOSITION very poor prognosis with decline status Palliative care consult placed D/w at bedside Vital Signs: Date Time Temp Pulse Resp B/P (MAP) Pulse Ox O2 Delivery O2 Flow Rate FiO2 12/12/16 08:20 42 96 Oxymask 11.0 12/12/16 07:10 36.7 109 22 99/62 (74) 97 Mask 11.0 12/12/16 06:18 154 126/91 12/12/16 04:51 131 135/80 12/12/16 04:15 34 12/12/16 04:06 36.8 59 24 98/68 (78) 95 Oxymask 11.0 12/12/16 04:00 Oxymask 10.0 12/12/16 02:37 102 22 94 Mask 9.0 12/12/16 00:10 Oxymask 10.0 12/11/16 23:22 36.5 99 20 107/71 (83) 95 Oxymask 8.0 12/11/16 20:00 Oxymask 12.0 12/11/16 19:39 36.5 106 24 101/64 (76) 100 Oxymask 8.0 12/11/16 19:15 102 22 95 Mask 12.0 12/11/16 16:00 Oxymask 12.0 12/11/16 15:11 36.5 114 20 99/64 (76) 97 Oxymask 12.0 12/11/16 14:20 104 18 93 Mask 12.0 12/11/16 12:13 93 Oxymask 10.0 12/11/16 12:08 135 93/58 (70) 12/11/16 12:00 Oxymask 12.0 12/11/16 11:24 36.7 135 20 107/75 (86) 95 Non-Rebreather 15.0 12/11/16 09:02 127/89 (102) Lab Results: Results Past 24 Hours Test 12/12/16 05:51 Range/Units White Blood Count 20.76 4.8-10.8 K/uL Red Blood Count 3.74 4.7-6.1 M/uL Hemoglobin 12.4 14.0-18.0 g/dL Hematocrit 34.8 42-52 % Mean Corpuscular Volume 93.0 80-100 fL Mean Corpuscular Hemoglobin 33.2 25-34 pg Mean Corpuscular Hemoglobin Concent 35.6 32-36 g/dl Platelet Count 132 130-400 K/uL Mean Platelet Volume 11.3 7.4-10.4 fL Neutrophils (%) (Auto) 91.0 % Lymphocytes (%) (Auto) 6.8 % Monocytes (%) (Auto) 0.9 % Eosinophils (%) (Auto) 0.1 % Basophils (%) (Auto) 0.0 % Neutrophils # (Auto) 18.88 1.4-6.5 K/uL Lymphocytes # (Auto) 1.42 1.2-3.4 K/uL Monocytes # (Auto) 0.18 0.11-0.59 K/uL Eosinophils # (Auto) 0.03 0-0.5 K/uL Basophils # (Auto) 0.01 0-0.2 K/uL RDW Standard Deviation 53.1 36.4-46.3 fL RDW Coefficient of Variation 15.6 11.5-14.5 % Immature Granulocyte % (Auto) 1.2 % Immature Granulocyte # (Auto) 0.24 0.00-0.02 K/uL Sodium Level 133 136-145 mmol/L Potassium Level 5.2 3.5-5.1 mmol/L Chloride Level 101 98-107 mmol/L Carbon Dioxide Level 23 21-32 mmol/L Anion Gap 9.0 3-11 mmol/L Blood Urea Nitrogen 50 7-18 mg/dl Creatinine 2.00 0.60-1.40 mg/dl Est Creatinine Clear Calc Drug Dose 38.8 ml/min Estimated GFR () 37.5 Estimated GFR (Non- 32.4 BUN/Creatinine Ratio 24.8 10-20 Random Glucose 67 70-99 mg/dl Calcium Level 8.3 8.5-10.1 mg/dl
--- NOTE | 2016-12-12 09:06 | Progress Note ---
Progress Note Date of Service Dec 12, 2016. 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 Dr Anderson unavailable presently d/t being out of town until next week. Will see in office after d/c to determine whether surgical candidate. No urgent intervention indicated at this time. Please call if needed.
[2016-12-12] MEDS: LEVOFLOXACIN 500 MG TAB PO SCH (09:22)
--- NOTE | 2016-12-12 09:29 | Progress Note ---
Progress Note Date of Service Dec 12, 2016. Progress Note ATTENDING NOTE : after discussion with and daughter /grand daughter -family wanted pt to be comfortable only not suffer anymore pt is made comfort care /hospice will be transferred to Medical floor will continue IV morphine 1 mg Q30 mins may consider IV morphine gtt if pt does not have symptom relief
[2016-12-12] MEDS ORDERED: ATROPINE SULFATE 1% OP SOLN 5 ML BTL SL PRN (09:45)
--- NOTE | 2016-12-12 09:58 | Pain Management Consultation ---
Pain Management Consultation Date of Consultation Dec 12, 2016. Reason for Consultation Left lower extremity and hip pain History I saw 71-year-old MrKim Rossi today the [facility]. He was admitted with bilateral pneumonia and has been receiving IV antibiotics and supplemental oxygen. He was found yesterday to have left-sided leg and hip pain. He denies any pain on today's examination but has labored work of breathing upon my entrance to the room. He notes that his pain is 0 out of 10. He denies any other constitutional complaints aside from his respiratory status. Past Medical/Surgical History (1) DVT (deep venous thrombosis) (2) Pneumonia (3) Right shoulder pain (4) Recent inferior myocardial infarction (5) Hypoxia (6) Sepsis (7) Bilateral pneumonia (8) Respiratory failure, acute (9) AAA (abdominal aortic aneurysm) (10) Hyperlipidemia (11) Impotence of organic origin (12) Malignant neoplasm (13) History of subdural hemorrhage (14) History of DVT (deep vein thrombosis) (15) Head and neck cancer (16) Renal cell carcinoma (17) History of inguinal hernia repair (18) History of sinus surgery (19) Acute on chronic renal failure (20) Anemia (21) Anemia (22) CAD (coronary artery disease) (23) Cardiac ischemia (24) Elevated troponin (25) Elevated troponin (26) Frequent falls (27) Hematuria (28) Hematuria of undiagnosed cause (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 (30) Thrombocytopenia (31) Weakness (32) Weakness Family History FH: heart disease FHx: cancer Hypertension Social / Work History Alcohol Use: none Drug Use: none Marital Status: Housing Status: other ([facility]) Occupation: retired Allergies Coded Allergies: Sulfamethoxazole w/Trimethoprim (Verified Allergy, Unknown, Hives, 11/28/16 ) Medications Current Inpatient Medications Medications (Trade) Dose Ordered Sig/Kathy Route Start Time Stop Time Status Last Admin Dose Admin Ondansetron HCl (Zofran Inj) 4 mg Q6H PRN IV 12/08/16 04:45 01/07/17 04:44 Polyethylene (Miralax Powder Packet) 17 gm DAILY PRN PO 12/08/16 07:00 01/07/17 06:59 Lorazepam 0.5 mg/ Syringe 1 ml @ 0.5 mls/min Q2HWA PRN IV 12/12/16 10:00 01/10/17 09:14 UNV Scopolamine (Transderm-Scop Patch) 1.5 mg Q72H TD 12/12/16 09:45 01/11/17 09:44 UNV Miscellaneous (Remove Transderm-Scop Patch) 1 ea Q72H N/A 12/15/16 09:45 01/14/17 09:44 UNV Miscellaneous Information (Check Scopolamine Patch Placement) 1 ea QS N/A 12/12/16 16:00 01/11/17 15:59 UNV Atropine Sulfate (Atropine Sulfate 1% Oph Soln) 2 drops Q1H PRN SL 12/12/16 09:45 01/11/17 09:44 UNV Morphine Sulfate/ Dextrose 250 ml @ 0 mls/hr Q0M IV 12/12/16 09:45 12/26/16 09:44 UNV Physical Exam Height & Weight: Height 6 feet, 2.00 inches. Weight 84.800 (Kilograms) 186 (Pounds) Last Vital Signs Documentation Date Time Temp Pulse Resp B/P (MAP) Pulse Ox O2 Delivery O2 Flow Rate FiO2 12/12/16 08:20 42 96 Oxymask 11.0 12/12/16 07:10 36.7 109 99/62 (74) Exam: Patient is awake and alert to verbal stimulus he has extreme labored work of breathing on exam breathing about 40+ times a minute. He has dry mucous membranes and an absence of a right eye. It is covered by a dressing He does not appear uncomfortable on exam aside from his labored work of breathing He is nontender over his left hip girdle nontender over his axial lumbar spine or bilateral sacroiliac joints nontender over greater trochanters bilaterally He has 4+ out of 5 strength in bilateral lower extremities suspect that he would have 5 out of 5 strength if he was not concentrating so significantly on his breathing at this time Gait was not observed Laboratory Laboratory Results (Last CBC): 12/12/16 05:51 Red Blood Count 3.74 L, Mean Corpuscular Volume 93.0, Mean Corpuscular Hemoglobin 33.2, Mean Corpuscular Hemoglobin Concent 35.6, Mean Platelet Volume 11.3 H, Neutrophils (%) (Auto) 91.0, Lymphocytes (%) (Auto) 6.8, Monocytes (%) ( Auto) 0.9, Eosinophils (%) (Auto) 0.1, Basophils (%) (Auto) 0.0, Neutrophils # ( Auto) 18.88 H, Lymphocytes # (Auto) 1.42, Monocytes # (Auto) 0.18, Eosinophils # (Auto) 0.03, Basophils # (Auto) 0.01 Imaging Radiology: reports reviewed Radiology Findings Patient: ELSY DAS JR Address1: [facility] Rec: [id number] Address2: [address] Acct ID: [id number] [facility] Zip: [facility] [place] [address] Date: 1945 Sex: M [facility]: [facility] Ref Phy: [facility] SC: C.MED Att Phy: Lalita Krueger M.D. Report #: [id number] Loree Phy: Jorge Green M.D. Test: [id number] Admit Phy: Rory Collins DO Power Systems Engineer: WISAM Interpreting Phy: Pradeep Lozoya M.D. Diagnosis: RESPIRATORY FAILURE, ACUTE Ordering Phy: Lalita Krueger MD Service Date: 12/12/16 Admit Date: 12/08/1706/22/17 MNE: [id number] CONF: DICTATED BY: Pradeep Lozoya M.D.]] CC: [facility] Jorge Green M.D. Pervez, Ayesha H., M.D. Endcc: CHEST ONE VIEW PORTABLE CLINICAL HISTORY: SOB /CHF dyspnea COMPARISON STUDY: 12/11/2016 FINDINGS: Similar exam. Diffuse infiltrative change left hemithorax and right base. Upper right lung remains generally clear. IMPRESSION: No change compared to the prior exam. Diffuse left hemithoracic and right basilar infiltrate versus pulmonary edema. Assessment 1. Acute pneumonia and labored work of breathing 2. History of left hip pain and left leg pain 3. History of maxillary sinus cancer left side Recommendations 1. Spoke with Dr. Krueger is at length about his labored work of breathing. It appears to be secondary more so to his pneumonia than pain at this time as he has no pain on exam. 2. Would use caution with dosing of narcotics given his tenuous respiratory status unless a decision for comfort care is made by his family 3. Please call with any questions he is not a candidate for any type of interventional treatment by pain management at this time.
[2016-12-12] MEDS ORDERED: LORAZEPAM INJ 0.5 MG in SYRINGE 0.75 ML IV PRN (10:00)
[2016-12-12] MEDS ORDERED: POLYETHYLENE (MIRALAX) 17 GM PACK PO PRN (10:00)
[2016-12-12] MEDS ORDERED: SCOPOLAMINE 1.5 MG TDSY TD SCH (10:15)
[2016-12-12] MEDS: MoRPHine SULF/NSS 250MG/250ML 250 ML IV SCH ×2 (10:18→19:52)
[2016-12-12] MEDS ORDERED: NURSING VERBAL MED ORDER ONE ×7 (11:45→21:15)
[2016-12-12] MEDS ORDERED: CHECK SCOPOLAMINE PATCH PLACEMENT SCH (16:00)
[2016-12-12 16:08] VITALS: O2SAT 96
[2016-12-12 16:43] VITALS: PULSE 120; O2SAT 93
--- NOTE | 2016-12-12 23:39 | Progress Note ---
Progress Note Date of Service Dec 12, 2016. Progress Note PRONOUNCEMENT Patient ceased to breathe at 22:27. Family present and offered condolences. Examined by the undersigned at 23:30. Right eye bandaged. Left pupil midposition / fixed. No heart sounds or respirations. Cause of : respiratory failure due to pneumonia. certificate will be completed in the morning. .
--- NOTE | 2016-12-14 07:43 | Discharge Summary ---
Discharge Summary Date of Service Dec 14, 2016. Discharge Summary Admission Date: Dec 08, 2016 at 03:56 Discharge Date: Dec 12, 2016 Discharge Disposition: Principal Diagnosis: PT WHILE ON COMFORT CARE /HOSPICE CAUSE OF -HYPOXEMIC RESPIRATORY FAILURE -DUE TO PNEUMONIA WITH MULTIPLE UNDERLYING CO MORBIDITIES Admission Information HPI (per Admitting provider): Recent confinement last week for generalized weakness. Patient also found to have an acute lower extremity DVT. IVC filter placed as patient was deemed not to be a good candidate for activation. Patient discharged to [facility] for [facility]. As per patient's , patient noted to be coughing the last few days, breathing a little labored. Patient denies aspiration. Patient denies chest pain. Outpatient chest x-ray showed bilateral bronchopneumonia. Patient started on Levaquin. Patient brought to the emergency room with worsening symptoms. Noted to be hypotensive and febrile. Patient received normal saline, Tylenol Vanco and Zosyn at the emergency room for sepsis. Physical Exam (per Admitting): General Appearance: + pertinent finding (respiratory distress) Head: + pertinent finding (dressing covering the right orbit) Eyes: + pertinent finding (pale palpebral conjunctiva on the left) ENT: + pertinent finding Neck: supple (Jasmyne mucosa) Respiratory/Chest: + respiratory distress, + pertinent finding (occasional wheeze) Cardiovascular: + tachycardia Abdomen/GI: soft Extremities/Musculoskelatal: non-tender, + pertinent finding (left lower extremity swelling greater than the right) Neurologic/Psych: + pertinent finding (coherent) Skin: + pallor Hospital Course This is a 71 year old male with a complex medical history including 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, recent NSTEMI in September 2016, recent DVT of upper extremity, recent retroperitoneal hemorrhage - was at [facility] from December 02 to December 04 due to weakness - now coming from [facility] with fevers, lethargy, +bacteremia, shortness of breath Acute Hypoxemic Respiratory Failure due to Pneumonia -health care associated , Cxray shows diffuse left sided infiltrate DEVELOPED PROGRESSIVE DECLINE IN CLINICAL STATUS persisted hypoxia, tachypneic , tachycardic -no improvement with Lasix , on broad spectrum Abx multiple co morbidities with very poor prognosis after discussion with and daughter /grand daughter -family wanted pt to be comfortable only not suffer anymore pt is made comfort care /hospice was ordered IV morphine 1 mg Q 30 mins with minimum relief of symptom started on IV morphine gtt for comfort DNR /DNI pt while on comfort care family members were present at bedside Discharge Instructions PT WHILE ON COMFORT CARE
== END 2016-12-12 22:27 | disposition expired | DRG 193 ==
LOC: EDBD 01:06 → C.EDB 01:08 → C.MED 03:56 → ENRESERV 04:55 → CANBEDREQ 12-11 09:04
PROVIDERS: ADMIT Family Medicine; ATTEND Hospitalist
DX: J18.9 Pneumonia, unspecified organism (principal); J96.01 Acute respiratory failure with hypoxia; I50.23 Acute on chronic systolic (congestive) heart failure; R78.81 Bacteremia; I24.8 Other forms of acute ischemic heart disease; E87.1 Hypo-osmolality and hyponatremia; D59.1 Other autoimmune hemolytic anemias; I50.32 Chronic diastolic (congestive) heart failure; C79.51 Secondary malignant neoplasm of bone; N18.4 Chronic kidney disease, stage 4 (severe); Z51.5 Encounter for palliative care; B96.89 Other specified bacterial agents as the cause of diseases classified elsewhere; M79.81 Nontraumatic hematoma of soft tissue; T45.515A Adverse effect of anticoagulants, initial encounter; M79.605 Pain in left leg; M25.552 Pain in left hip; E87.5 Hyperkalemia; R33.9 Retention of urine, unspecified; I72.4 Aneurysm of artery of lower extremity; I25.10 Atherosclerotic heart disease of native coronary artery without angina pectoris; I25.2 Old myocardial infarction; E78.5 Hyperlipidemia, unspecified; D69.6 Thrombocytopenia, unspecified; Z79.899 Other long term (current) drug therapy; Z79.82 Long term (current) use of aspirin; Z79.52 Long term (current) use of systemic steroids; Z66 Do not resuscitate; Z85.528 Personal history of other malignant neoplasm of kidney; Z85.22 Personal history of malignant neoplasm of nasal cavities, middle ear, and accessory sinuses; Z90.5 Acquired absence of kidney; Z90.01 Acquired absence of eye; Z92.21 Personal history of antineoplastic chemotherapy; Z86.718 Personal history of other venous thrombosis and embolism; Z95.828 Presence of other vascular implants and grafts; Z86.73 Personal history of transient ischemic attack (TIA), and cerebral infarction without residual deficits; Z92.3 Personal history of irradiation; Z87.891 Personal history of nicotine dependence; Z82.49 Family history of ischemic heart disease and other diseases of the circulatory system